=== PATIENT | male | born 1955 | race Caucasian/White ===

== ENCOUNTER 2024-03-09 10:11 | Outpatient (CLI) | payer MEDICARE, BC, SELFPAY ==
--- OUTSIDE RECORDS SUMMARY | 2024-03-09 10:15 | XMS_ITS | Referral Summary ---
Author Organization [facility] Address [address] [place] [address] Care Team Providers Care Pelletizer Tender Name Role Phone Guillermo Marcelo M.D. Primary Care Provider [phone] Source Comments Patient records contain information from all sites at [facility]. For routine questions regarding patient records, call [phone] during business hours, M-F 8:00 AM - 5:00 PM Central Time. Record requests for emergency care only can be directed to [phone] at any time.[facility] Encounters Date Type Department Care Team Description 02/17/2024 Orders Only Department of Ophthalmology in [place], [place] [address] [place] [address] Sirena Lr, C.O.A. 02/17/2024 12:30 PM CDT Office Visit Department of Ophthalmology in [place], [place] [address] [place] [address] Meghna Nascimento M.D. Uveitis Anterior Recurrent Left (Primary Dx); Steroid Responder Left Eye; Cataract Senile Nuclear Sclerosis Bilateral; Spondyloarthropathy Human Leukocyte Antigens B27; Cancer Renal Cell Carcinoma Personal History 12/23/2023 10:14 AM CDT - 12/23/2023 11:59 PM CDT Hospital Encounter Department of Laboratory Medicine in [place], [place] [address] [place] [address] Guillermo Marcelo M.D. Hyperlipidemia Discharge Disposition: Home or Self Care from Last 3 Months Allergies No known active allergies Medications * This document contains information received from the source organization and may not represent a complete record from that organization. atorvastatin (LIPITOR) 10 mg tablet Take 1 tablet (10 mg total) by mouth daily. 90 tablet 3 02/25/2023 Active mv-min/folic/K1/ lycopen/lutein (CENTRUM SILVER ULTRA MEN'S ORAL) Take 1 tablet by mouth daily. 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 Repeat colonoscopy in 5 years. Hyperlipidemia 06/23/2008 Immunizations Name Administration Dates Next Due HZV (ZOSTAVAX) 08/22/2013 Influenza Split 02/23/2017, 6,03/01/2013,2011 Influenza high dose QV(65 ye ars or older) (PF) 03/24/2022,02/26/2021,02/06/2020 Influenza, Seasonal, Injectable 05/25/2006 Influenza, Unspecified 09/02/2023(Deferred: Casandra ent decision) PCV20 03/24/2022 PPSV23 02/06/2020,07/04/2011 RZV (SHINGRIX) 02/14/2019,02/10/2019,12/01/2018 SARS-COV-2 (COVID-19) - MODE RNA (12 YEARS AND OLDER) Fall Seasonal 09/02/2023(Deferred: Patient decision) SARS-COV-2 (COVID-19) - PFIZ ER (Discontinued)(12 years or older) 08/14/2020,07/24/2020 Td Preservative Free (TENIVA C, DECAVAC) 10/24/2004 Td, (Adult) Unspecified 12/18/1988 Tdap 12/15/2022,07/21/2011 influenza trivalent high dos e (HD)(PF) 02/16/2019,02/23/2017 influenza trivalent vaccine (6 months and older)(PF) 07/04/2011,05/17/2009 Social History Tobacco Use Types Packs/Day Years Used Date Smoking Tobacco: Former Cigarettes 0.5 54.8 S tarted: 05/18/1969 Cigars Started: 05/18 Smokeless Tobacco: Never Tobacco Cessation:Counseling Given: Yes Comments:08/31/23 Alcohol Use Standard Drinks/Week Comments Yes 3 (1 standard drink = 0.6 oz pur e alcohol) Only rarely Humiliation, Afraid, Rape, and Kick questionnair e Answer Date Recorded Within the last year, have y ou been afraid of your partner or ex-partner? No 12/08/2022 Within the last year, have y ou been humiliated or emotionally abused in other ways by your partner or ex-partner? No Within the last year, have y ou been kicked, hit, slapped, or otherwise physically hurt by your partner or ex-partner? No 12/08/2022 Within the last year, have y ou been raped or forced to have any kind of sexual activity by your partner or ex-partner? No 12/08/2022 Social Connection and Isolat ion Panel [NHANES] Answer Date Recorded In a typical week, how many times do you talk on the phone with family, friends, or neighbors? Twice a week 09/19/2021 How often do you get togethe r with friends or relatives? More than three times a week 09/19/2021 How often do you attend chur ch or temple services? More than 4 times per year 09/19/2021 Do you belong to any clubs o r organizations such as restorationist groups, unions, fraternal or athletic groups, or school groups? Yes 09/19/2021 How often do you attend meet ings of the clubs or organizations you belong to? More than 4 times per year 09/19/2021 Are you , , di vorced, , never , or living with a partner? 09/19/2021 AUDIT-C Answer Date Recorded Q1: How often do you have a drink containing alc ohol? 2-4 times a month 09/19/2021 Q2: How many drinks containi ng alcohol do you have on a typical day when you are drinking? 1 or 2 09/19/2021 Q3: How often do you have si x or more drinks on one occasion? Less than monthly 09/19/2021 Overall Financial Resource Strain (CARDIA) Answe r Date Recorded How hard is it for you to pa y for the very basics like food, housing, medical care, and heating? Not hard at all 12/08/2022 PHQ-2 Answer Date Recorded PHQ-2 Score 0 08/31/2023 [facility] - Occupational Stress Questionnaire Answer Date Recorded Do you feel stress - tense, restless, nervous, or anxious, or unable to sleep at night because your mind is troubled all the time - these days? Only a little 09/19/2021 Exercise Vital Sign Answer Date Recorde d On average, how many days pe r week do you engage in moderate to strenuous exercise (like a brisk walk)? 4 days 12/08/2022 On average, how many minutes do you engage in exercise at this level? 110 min 12/08/2022 Hunger Vital Sign Answer Date Recorded Within the past 12 months, y ou worried that your food would run out before you got the money to buy more. Never true 12/09/19 23 Within the past 12 months, t he food you bought just didn't last and you didn't have money to get more. Never true 12/08/2022 PRAPARE - Transportation Answer Date Re corded In the past 12 months, has l ack of transportation kept you from medical appointments or from getting medications? No 11/16 In the past 12 months, has l ack of transportation kept you from meetings, work, or from getting things needed for daily living? No 12/08/2022 Nutrition Answer Date Recorded On average, how many serving s of fruits and vegetables do you eat per day (serving size is equal to 1 cup or approximately the size of a tennis ball)? 0-2 12/08/2022 Dental Answer Date Recorded Dental: Regular Dentist Yes 09/20/19 Employment Answer Date Recorded Employment status Retired 12/08/2022 Housing Stability Answer Date Recorded What is your living situation today? I have a [facility] place to live 12/08/2022 Education Answer Date Recorded What is the highest level of school you have completed or the highest degree you have received? 12th grade 09/19/2021 Sex and Gender Information Value Date Recorded Sex Assigned at Male 10/15/2017 7:21 PM CDT Legal Sex Male 2:00 AM [employer] Gender Identity Male 10/15/2017 7:21 PM CDT Sexual Orientation Straight 10/15/2017 7: 21 PM CDT Last Filed Vital Signs Vital Sign Reading Time Taken Comments Blood Pressure 149/76 11/18/2023 7:41 AM CDT Pulse 64 11/18/2023 7:41 AM CDT Temperature 36.1 ??C (97 ??F) 11/18/2023 7:41 AM CDT Respiratory Rate 20 10/26/2023 1:12 PM CDT Oxygen Saturation 99% 09/13/2023 10: 57 AM CDT Inhaled Oxygen Concentration - - Weight 88.3 kg (194 lb 10.7 oz) 11/18/2023 7:41 AM CDT Height 189.9 cm (6' 2.76) 11/18/2023 7:41 AM CD T Body Mass Index 24.49 11/18/2023 7:41 AM CDT Plan of Treatment Upcoming Encounters Date Type Department Care Team (Latest Contact Info) Description 05/04/2024 10:00 AM [employer] Comprehensive Visit Department of Sleep Medicine in [place], [place] [address] [place] [phone] Leighton Schmitz M.D. [address] [place] [phone] Discharge Disposition: Home or Self Care Medical Devices Implanted Type Area Vocational Aide Device Identifier Shelf Expiration Date Model / Serial / Lot [place] Screw 2 Canc 6.5 X 20 - Robert [id number] Implanted:Qty: 1 on 05/22/2006 Hardware e.g. pins/screws /rods [employer] Description:Device Manufactu rer - [employer]. Device Status Text - [id number]. [place] Screw 2 Canc 6.5 X 40 - Robert [id number] Implanted:Qty: 1 on 05/22/2006 Hardware e.g. pins/screws /rods [employer] Description:Device Manufactu rer - [employer]. Device Status Text - [id number]-[id number]. [place] Screw 2 Canc 6.5 X 35 - Robert [id number] Implanted:Qty: 1 on 05/14/2009 Hardware e.g. pins/screws /rods [employer] Description:Device Manufactu rer - [employer]. Device Status Text - HARDWARE-96071. [place] Screw 2 Canc 6.5 X 20 - Robert [id number] Implanted:Qty: 1 on 05/14/2009 Hardware e.g. pins/screws /rods [employer] Description:Device Manufactu rer - [employer]. Device Status Text - HARDWARE-05504. J J Insert P Fatou +4 10 36x58 - Robert [id number] Implanted:Qty: 1 on 05/22/2006 Hip Implant Other/Legacy - See Implant Description [employer] Description:Device Manufactu rer - [employer]. Body Location - Other. Left. Device Status Text - HIP [id number]. [place] Shell Multi 2 58mm - Robert [id number] Implanted:Qty: 1 on 05/22/2006 Hip Implant Other/Legacy - See Implant Description [employer] Description:Device Manufactu rer - [employer]. Body Location - Other. Left. Device Status Text - HIP [id number]. J J Articul Travis Head 36 + 5.0 - Robert [id number] Implanted:Qty: 1 on 05/22/2006 Hip Implant Other/Legacy - See Implant Description [employer] Description:Device Manufactu rer - [employer]. Body Location - Other. Left. Device Status Text - HIP [id number]. Depuy Aml High Offset Lg 15.0 - Robert [id number] Implanted:Qty: 1 on 05/22/2006 Hip Implant Other/Legacy - See Implant Description [employer] Description:Device Manufactu rer - [employer]. Body Location - Other. Left. Device Status Text - HIP [id number]. Delta-Head Ceramic 36mm +1.5 - Robert [id number] Implanted:Qty: 1 on 05/14/2009 Hip Implant Other/Legacy - See Implant Description [employer] Description:Device Manufactu rer - [employer]. Body Location - Other. Right. Device Status Text - HIP IMP-[id number]. J J Insert P Fatou +4 10 36x58 - Robert [id number] Implanted:Qty: 1 on 05/14/2009 Hip Implant Other/Legacy - See Implant Description [employer] Description:Device Manufactu rer - [employer]. Body Location - Other. Right. Device Status Text - HIP IMP-[id number]. [place] Shell Multi 2 58mm - Robert [id number] Implanted:Qty: 1 on 05/14/2009 Hip Implant Other/Legacy - See Implant Description [employer] Description:Device Manufactu rer - [employer]. Body Location - Other. Right. Device Status Text - HIP [id number]. Depuy Aml High Offset Lg 15.0 - Robert [id number] Implanted:Qty: 1 on 05/14/2009 Hip Implant Other/Legacy - See Implant Description [employer] Description:Device Manufactu rer - [employer]. Body Location - Other. Right. Device Status Text - HIP [id number]. Depuy-Insert Stabilized Sz 5 10mm - Robert [id number] Implanted:Qty: 1 on 07/08/2011 Knee Implant Other/Legacy - See Implant Description [employer] Description:Device Manufactu rer - [employer]. Body Location - Other. Right. Device Status Text - KNEE IMP-101807. Depuy-Insert Stabilized Sz 5 10mm - Robert [id number] Implanted:Qty: 1 on 07/08/2011 Knee Implant Other/Legacy - See Implant Description [employer] Description:Device Manufactu rer - [employer]. Body Location - Other. Left. Device Status Text - KNEE IMP-216705. J J Sig Patella Oval 38 - Robert [id number] Implanted:Qty: 1 on 07/08/2011 Knee Implant Other/Legacy - See Implant Description [employer] Description:Device Manufactu rer - [employer]. Body Location - Other. Right. Device Status Text - KNEE IMP-513755. J J Sig Patella Oval 38 - Robert [id number] Implanted:Qty: 1 on 07/08/2011 Knee Implant Other/Legacy - See Implant Description [employer] Description:Device Manufactu rer - [employer]. Body Location - Other. Left. Device Status Text - KNEE IMP-416478. Sigma Post Stab.W Lug Fem Sz 6 Lt - Robert [id number] Implanted:Qty: 1 on 07/08/2011 Knee Implant Other/Legacy - See Implant Description [employer] Description:Device Manufactu rer - [employer]. Body Location - Other. Left. Device Status Text - KNEE IMP-153998. Depuy-Tib Tray Mod Cement Cocr Sz5 - Robert [id number] Implanted:Qty: 1 on 07/08/2011 Knee Implant Other/Legacy - See Implant Description [employer] Description:Device Manufactu rer - [employer]. Body Location - Other. Right. Device Status Text - KNEE [id number]. Depuy-Tib Tray Mod Cement Cocr Sz5 - Robert [id number] Implanted:Qty: 1 on 07/08/2011 Knee Implant Other/Legacy - See Implant Description [employer] Description:Device Manufactu rer - [employer]. Body Location - Other. Left. Device Status Text - KNEE IMP-038842. Sigma Post Stab.W Lug Fem Sz 6 Rt - Robert [id number] Implanted:Qty: 1 on 07/08/2011 Knee Implant Other/Legacy - See Implant Description [employer] Description:Device Manufactu rer - [employer]. Body Location - Other. Right. Device Status Text - KNEE IMP-466689. Cement Bone Large - Robert [id number] Implanted:Qty: 4 on 07/08/2011 Misc Other [place] Description:Device Manufactu rer - Anshul Valencia.. Device Status Text - MISCOTHER-2840. Procedures Procedure Name Priority Date/Time Associated Diagnosis Comments LIPID PANEL, S Routine 12/23/2023 10:26 AM CDT Hyperlipidemia BASIC METABOLIC PANEL, S/P Routine 10/26/2023 2:00 PM CDT Cancer Renal Cell Carcinoma Personal History COLONOSCOPY Routine 09/28/2019 1:07 PM CDT Tubular Adenoma Colon Personal History HCV AB SCRN W/REFLEX TO HCV PCR, S Routine 06/12/2017 11:35 AM [employer] CT ABDOMEN PELVIS WITH IV CONTRAST Routine 04/10/2000 4:00 AM [employer] from Last 3 Months or Most Recently Relevant to Health Maintenance Results * Lipid Panel (12/23/2023 10:26 AM CDT) Triglycerides 81 mg/dL 12/23/2023 12:06 PM CDT NPRG Comment: ----REFERENCE VALUE---- Normal: <150 mg/dL Borderline High: 150-199 mg/dL High: 200-499 mg/dL Very High: > or =500 mg/dL Cholesterol, Total 162 mg/dL 2023 12:06 PM CDT NPRG Comment: ----REFERENCE VALUE---- Desirable: < 200 mg/dL Borderline High: 200 - 239 mg/dL High: > or = 240 mg/dL Cholesterol, LDL, Calculated 102 mg/dL 12/23/2023 12:06 PM CDT NPRG Comment: ----REFERENCE VALUE---- Desirable: <100 mg/dL Above Desirable: 100-129 mg/dL Borderline High: 130-159 mg/dL High: 160-189 mg/dL Very High: >=190 mg/dL ----ADDITIONAL INFORMATION---- LDL cholesterol calculated using the Smith/NIH equation. Cholesterol, HDL 45 >=40 mg/dL 12/23/19 12:06 PM CDT NPRG Cholesterol, Non-HDL, Calculated 117 mg/dL 12/23/2023 12:06 PM CDT NPRG Comment: ----REFERENCE VALUE---- Desirable: <130 mg/dL Above Desirable: 130-159 mg/dL Borderline High: 160-189 mg/dL High: 190-219 mg/dL Very High: > or =220 mg/dL Fasting (8 HR or more) Yes 12/23/2023 10:26 AM CDT NPRG Blood (Blood, Venous) 12/23/2023 10:26 AM CDT 12/23/2023 11:46 AM CDT us Guillermo Marcelo M.D. LAB BLOOD ADD-ON Final Result [facility] [address] [place] [address], [place] NPRG [facility] [address] [place] [facility] [place] [address] * (ABNORMAL) Basic Metabolic Panel (10/26/2023 2:00 PM CDT) [facility] Potassium, P 5.1 3.6 - 5.2 mmol/L 10/26/2023 4:07 PM CDT NPRG Sodium, P 140 135 - 145 mmol/L 10/26/2023 4:07 PM CDT NPRG Chloride, P 104 98 - 107 mmol/L 10/26/2023 4:07 PM CDT NPRG Bicarbonate, P 30(H) 22 - 29 mmol/L 10/26/2023 4:07 PM CDT NPRG Anion Gap, P 6(L) 7 - 15 10/26/2023 4:07 PM CDT NPRG BUN (Blood Urea Nitrogen), P 26(H) 8 - 24 mg/dL 10/26/2023 4:07 PM CDT NPRG Creatinine 1.70(H) 0.74 - 1.35 mg/dL 10/26/2023 4:07 PM CDT NPRG Estimated GFR (eGFR) 43(L) >=60 mL/min/BSA 10/26/2023 4:07 PM CDT NPRG Comment: Estimated GFR calculated using the 2020 CKD_EPI creatinine equation. Calcium, Total, P 8.8 8.8 - 10.2 mg/dL 10/26/2023 4:07 PM CDT NPRG Glucose, P 83 70 - 140 mg/dL 10/26/2023 4:07 PM CDT NPRG Blood (Blood, Venous) 10/26/2023 2:00 PM CDT 10/26/2023 3:35 PM CDT us Leif Bonner M.D. LAB BLOOD ADD-ON Final Result [facility] [address] [place] [address], [facility] NPRG [facility] [address] [place] [address] * HCV AB Scrn w/Reflex to HCV PCR, S (06/12/2017 11:35 AM [employer]) HCV Ab Screen, S Negative Negative [facility] Comment:[id number] rat io is <1.00. 06/12/2017 11:3 5 AM [employer] 06/12/2017 11:35 AM [employer] Noah Adan M.D. LAB MICROBIOLOGY - BLOOD ORDERABLES Final Result [facility] [address] [place] [address], [facility] * CT Abdomen Pelvis with IV Contrast (04/10/2000 4:00 AM [employer]) Anatomical Region Laterality Modality Abdomen, Pelvis N/A Computed Tomogra phy 04/10/2000 4:00 AM [employer] Narrative 04/10/2000 7:16 AM [employer] 10-Apr-2000 04:00:00 ??Exam: CT ABDOMEN w & PELVIS w Indications: abdo pain, mid epigastrium ORIGINAL REPORT - 10-Apr-2000 05:19:00 ([id number]) CT abdomen and pelvis with oral and IV contrast enhancement demonstrates multiple mildly dilated fluid filled loops of mid and distal small bowel in the left abdomen and pelvis, measuring up to 5 cm in diameter. ??The colon is relatively decompressed. ??No intraperitoneal free air demonstrated. ??No obstructing mass or transition zone is demonstrated. ??Findings are nonspecific, but early or partial mechanical SBO cannot be excluded. ??Follow-up radiographs may be helpful if clinically indicated. ??Small amount of free fluid in the pelvis. ??Tiny hypodense liver foci (image 12) is most likely an unopacified vessel or benign simple cyst. ??Otherwise negative. ??Findings discussed with service. ?? (Optiray 320, 120 cc's, debility) Electronically signed by: ?? Lynn [id number] ([id number]) 10-Apr-2000 05:19 I have reviewed the films/images and agree with the above interpretation. Electronically signed by: ?? Richi Dyer M.D. ?? [id number] 10-Apr-2000 07:16 Procedure Note Jagdish Dyer M.D. - 08/24/2017 10-Apr-2000 04:00:00 Exam: CT ABDOMEN w & PELVIS w Indications: abdo pain, mid epigastrium ORIGINAL REPORT - 10-Apr-2000 05:19:00 ([id number]) CT abdomen and pelvis with oral and IV contrast enhancementdemonstrates multiple mildly dilated fluid filled loops of mid and distalsmall bowel in the left abdomen and pelvis, measuring up to 5 cm indiameter. The colon is relatively decompressed. No intraperitoneal freeair demonstrated. No obstructing mass or transition zone is demonstrated.Findings are nonspecific, but early or partial mechanical SBO cannot beexcluded. Follow-up radiographs may be helpful if clinically indicated.Small amount of free fluid in the pelvis. Tiny hypodense liver foci(image 12) is most likely an unopacified vessel or benign simple cyst.Otherwise negative. Findings discussed with service. (Optiray 320, 120 cc's, debility) Electronically signed by: Lynn [id number] ([id number]) 10-Apr-2000 05:19 I have reviewed the films/images and agree with the above interpretation. Electronically signed by: Richi Dyer M.D. [id number] 10-Apr-2000 07:16 Albert Vanessa M.D. IMG CT PROCEDURES Final Result from Last 3 Months or Most Recently Relevant to Health Maintenance Insurance MEDICARE [facility] Care Teams Pelletizer Tender Relationship Specialty Start Date End Date Guillermo Marcelo M.D. [address] [place], [place] [address] [place] [id number] PCP - General Family Medicine 07/30/23 [facility] 09/02/23
--- OUTSIDE RECORDS SUMMARY | 2024-03-09 10:15 | XMS_ITS | Encounter Summary ---
Author Organization [facility] Address [address] [place] [address] Care Team Providers Care Marker Hand Name Role Phone Guillermo Marcelo M.D. Primary Care Provider [phone] Reason for Referral * Outpatient (Routine) - Authorized Specialty Diagnoses / Procedures Referred By Gaby lagunas Referred To Contact Ophthalmology Meghna Nascimento M.D. [address] [place] [address] Phone: tel: fax: [facility] Referral ID Status Reason Start Date Expiration Date V isits Requested Visits Authorized [id number] Authorized 02/17/2024 08/18/2025 1 1 Scheduling Instructions Late July/early August 2024: Thursday at 12:30 pm Reason for Visit * Reason Comments Follow-up * Outpatient (Routine) - Closed Specialty Diagnoses / Procedures Referred By Gaby lagunas Referred To Contact Ophthalmology Meghna Nascimento M.D. [address] [place] [address] Phone: tel: fax: [facility] Referral ID Status Reason Start Date Expiration Date Visits Re quested Visits Authorized [id number] Closed 11/18/2023 05/19/2025 1 1 Encounter Details Date Type Department Care Team (Latest Contact Info) Description 02/17/2024 12:30 PM CDT Office Visit Department of Ophthalmology in [place], [place] [address] [place] [address] Meghna Nascimento M.D. [address] [place] [address] Uveitis Anterior Recurrent Left (Primary Dx); Steroid Responder Left Eye; Cataract Senile Nuclear Sclerosis Bilateral; Spondyloarthropathy Human Leukocyte Antigens B27; Cancer Renal Cell Carcinoma Personal History Social History Tobacco Use Types Packs/Day Years Used Date Smoking Tobacco: Former Cigarettes 0.5 54.8 S tarted: 05/18/1969 Cigars Started: 05/18 Smokeless Tobacco: Never Comments:08/31/23 Alcohol Use Standard Drinks/Week Comments Yes [...] often do you attend chur ch or yazidi services? More than 4 times per year 09/19/2021 Do you belong to any clubs o r organizations such as gnosticism groups, unions, fraternal or athletic groups, or [...] Answer Date Recorded PHQ-2 Score 0 08/31/2023 [facility] - Occupational Stress Questionnaire Answer Date [...] your living situation today? I have a [facility] place to live 12/08/2022 Education Answer Date Recorded What is the highest level of school you have completed or the highest degree you have received? 12th grade 09/19/2021 Sex and Gender Information Value Date Recorded Sex Assigned at Male 10/15/2017 7:21 PM CDT Legal Sex Male 2:00 AM ELECTRIC SPOT WELDER Gender Identity Male 10/15/2017 7:21 PM CDT Sexual Orientation Straight 10/15/2017 7: 21 PM CDT documented as of this encounter Progress Notes * Meghna Nascimento M.D. - 02/17/2024 12:30 PM CDT IMPRESSION # History of acute anterior uveitis, left eye - HLA-B27 associated --01/2016 first episode in the left eye: high grade anterior chamber cell (2-3+ with fibrin, posterior synechiae) - treated with prednisolone drops, tapered slowly, stopping in early April 2016. Did not have steroid-induced ocular hypertension. --07/2016 2nd episode, left eye: 1+ anterior chamber cell. Treated with prednisolone drops initially, then switched to difluprednate, IOP elevated to 32 on difluprednate. Controlled with Cosopt and brimonidine. Switched to prednisolone drops, stopped in mid-January 2017. --09/2017 3rd episode. 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 (07/2016) on difluprednate eye drops # Posterior vitreous detachment, both eyes # Clear cell renal cell carcinoma pT3 (2023) Status post right radical nephrectomy (10/09/23) # History of ankylosing spondylitis, HLA-B27 positive per report (Diagnosed when he was in his 20s) --when evaluated in 2015, he had fused sacroiliac joints and was treated with primarily with NSAIDs --history of bilateral hip replacements (left 2006, right 2008) --history of bilateral total knee arthroplasty (2011) # History of IgA nephropathy --diagnosed when he had gross hematuria # History of small bowel obstruction (03/2000) --required exploratory laparotomy and lysis of adhesions HPI - 11/18/23 Mr. Fredo Mcdonald is a 68 year old man who is referred by Dr. Earnestine Becker for evaluation due to a history of uveitis. He has a history of a clear cell renal cell carcinoma in his right kidney. A one year course of adjuvant immunotherapy with pembrolizumab (Keytruda) was recommended by his oncologist Dr. Becker. Due to his previous history of uveitis, an ophthalmology evaluation was recommended prior to starting immunotherapy. He was evaluated by Dr. Farzad Buenrostro in rheumatology earlier today. Dr. Buenrostro said it is possible thatthe immunotherapy could trigger reactivation of ankylosing spondylitis, but the likelihood of significant morbidity is low. He recommended reassessment of rheumatologic disease activity in about a year. He has not had any episodes of uveitis since the last one diagnosed here in September 2017. He has remained off prednisolone eye drops since the end of November 2017. His symptoms of iritis were a very red eye with a little itchiness, but no pain or light sensitivity. RECOMMENDATIONS There are no signs of active or recently active uveitis on exam today. He did have elevated eye pressure (up to 32) when he was on difluprednate eye drops, but his eye pressures are within normal limits in each eye now (without the need for glaucoma drops), and there isno evidence of glaucomatous optic neuropathy. He has some cataract in each eye, but neither is visually significant. He never had uveitic macular edema. In summary, it has been six years since his last episode of anterior uveitis. The previous episodesof uveitis did not cause any significant damage to ocular structures or vision. There is no contraindication to taking pembrolizumab. TODAY - 02/17/24 Since last visit he started adjuvant therapy with pembrolizumab on 12/09/23. He receives treatment every 3 weeks. The plan is to continue this treatment for one year. He had to miss one infusion because blood work was abnormal, but then it was okay. The most recent follow up note from his oncologist is dated 01/28/24. His next infusion is tomorrow (02/18/24). No changes in vision, no new eye-related symptoms. PLAN - 02/17/24 No active uveitis on exam today. No other findings concerning for ICI-related ocular toxicity. Okay to continue pembrolizumab as planned. In general, the rate of uveitis associated with pembrolizumab is very low. (Around 1% annual incidence for patients with melanoma; far less than 1% incidence in non-melanoma cases.) The risk of developing uveitis due to pembrolizumab is higher in patients with a history of uveitis, but it is still a very low risk. If he does develop uveitis, he might be able to continue pembrolizumab once the uveitis is controlled. Sometimes it may be necessary to postpone pembrolizumab for a period of time, and/or reduce the dose. Even if he develops uveitis on pembrolizumab, it is likely that we could be able to treat and control the uveitis without developing irreversible damage to the eye(s) and vision. Since he does have age-related cataract in each eye, the most likely complication of developing uveitis would be cataract progression (from inflammation and corticosteroids). As long as the uveitis is controlled, cataracts can be surgically removed with subsequent improvement in vision. If he is on pembrolizumab and he develops symptoms similar to the ones he had when he had anterior uveitis (eye redness & itching), or he develops other eye- or vision-related symptoms (ie eye pain, more than 10 floaters that are persistent or increasing, cloudy vision, vision loss), he should call Dr. Nascimento's church secretary: [phone] Nascimento is not available, he should be seen by one of the retina fellows, the resident on the retina or uveitis service, or one of the residents in the comprehensive ophthalmology clinic. If he has severe symptoms on the weekend and he thinks he cannot wait until the next business day, he should call the [facility] dx board operator at [phone] and ask for the eye doctor knitting demonstrator. Otherwise, we will reassess in about six months (late July or early August 2024 - schedule on a Thursday at 12:30 pm: [facility], trop both eyes, [facility]) Summary to Dr. Earnestine Becker ([facility]) documented in this encounter Plan of Treatment Upcoming Encounters Date Type Department Care Team (Latest Contact Info) Description 05/04/2024 10:00 AM ELECTRIC SPOT WELDER Comprehensive Visit Department of Sleep Medicine in [place], [place] [address] [place] [address] Leighton Schmitz M.D. 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 [address] [place] [address] PCP - General Family Medicine 07/30/23 [facility] 09/02/23 documented as of this encounter
--- OUTSIDE RECORDS SUMMARY | 2024-03-09 10:15 | XMS_ITS ---
Author Organization [facility] Address [address] [place] [address] Care Team Providers Care Dining Car Server Name Role Phone Unavailable Unavailable Unavailable Surgery Details Not on file Complications Check Surgery Details section. Procedure Estimated Blood Loss Check Surgery Details section. Procedure Findings Check Surgery Details section. Procedure Specimens Taken Check Surgery Details section.
--- OUTSIDE RECORDS SUMMARY | 2024-03-09 10:15 | XMS_ITS | Clinical Summary ---
Author Organization [facility] Address [address] [place] [address] Care Team Providers Care Television Mechanic Name Role Phone Guillermo Marcelo M.D. Primary Care Provider [phone] Source Comments Patient records contain information from all sites at [facility]. For routine questions regarding patient records, call [phone] during business hours, M-F 8:00 AM - 5:00 PM Central Time. Record requests for emergency care only can be directed to [phone] at any time.[facility] Allergies No known active allergies Medications * [...] B27 11/18/2023 Cataract Senile Nuclear Sclerosis Bilateral 07/0 07/2023 Steroid Responder Left Eye 11/18/2023 Cancer Renal Cell Carcinoma Personal History 02/2024 Thrombocytopenia 10/26/2023 Peyronie's Disease 09/19/2021 Apnea Sleep Obstructive 09/19/2021 Tobacco Use 09/19/2021 Spondylitis Ankylosing 02/07/2016 Polyp Colon Personal History, Unspecified Type 0 08/29/2013 Overview (09/29/2019): Colonoscopy September 2019: Tubular adenoma with low-grade dysplasia. Repeat colonoscopy in 5 years. Hyperlipidemia 06/23/2008 Encounters Date Type Department Care Team Description 02/17/2024 12:30 PM CDT Office Visit Department of Ophthalmology in [place], [place] [address] [place] [address] Meghna Nascimento M.D. Uveitis Anterior Recurrent Left (Primary Dx); Steroid Responder Left Eye; Cataract Senile Nuclear Sclerosis Bilateral; Spondyloarthropathy Human Leukocyte Antigens B27; Cancer Renal Cell Carcinoma Personal History 02/17/2024 Orders Only Department of Ophthalmology in [place], [place] [address] [place] [address] Sirena Lr, C.O.A. 12/23/2023 10:14 AM CDT - 12/23/2023 11:59 PM CDT Hospital Encounter Department of Laboratory Medicine in [place], [place] [address] [place] [address] Guillermo Marcelo M.D. Hyperlipidemia Discharge Disposition: Home or Self Care from Last 3 Months Immunizations Name Administration Dates Next Due HZV [...] trivalent vaccine (6 months and older)(PF) 07/04/2011,05/17/2009 Family History Medical History Relation Name Comments Cancer Brother Leighton doing experimen issa meds, slow growing, rare Skin cancer Brother Leighton No Known Problems Daughter Rossy Colon cancer Father Merle Coronary artery disease Father Merle Heart attack Father Merle Kidney cancer Father Merle Asthma Mother Janie Coronary artery disease Mother Janie Dementia Mother Janie Glaucoma Mother Janie Stroke Mother Janie Transient ischemic attack Mother Janie Suicide Paternal Grandfather Alex Skin cancer Sister 1 Adri Skin cancer Sister 2 Kami Skin cancer Sister 3 Aicha Relation Name Status Comments Brother Leighton Alive Daughter Rossy Alive Father Merle Mother Janie Paternal Grandfather Alex Sister 1 Adri Alive Sister 2 Kami Alive Sister 3 Aicha Alive Social History Tobacco Use Types Packs/Day Years [...] 09/19/2021 How often do you attend chur or islam services? More than 4 times per year 09/19/2021 Do you belong to any clubs o r organizations such as jehovah's witness groups, unions, fraternal or athletic groups, or [...] Answer Date Recorded PHQ-2 Score 0 08/31/2023 [facility] - Occupational Stress Questionnaire Answer Date Recorded [...] your living situation today? I have a [facility] place to live 12/08/2022 Education Answer Date Recorded What is the highest level of school you have completed or the highest degree you have received? 12th grade 09/19/2021 Sex and Gender Information Value Date Recorded Sex Assigned at Male 10/15/2017 7:21 PM CDT Legal Sex Male 2:00 AM CERTIFIED NURSING ATTENDANT Gender Identity Male 10/15/2017 7:21 PM CDT [...] (Latest Contact Info) Description 05/04/2024 10:00 AM CERTIFIED NURSING ATTENDANT Comprehensive Visit Department of Sleep Medicine in [place], [place] [address] [place] [phone] Leighton Schmitz M.D. [address] [place] [phone] Discharge Disposition: Home or Self Care Health Maintenance Due Date Last Done Comments CT Colonography 1955 Cologuard 1955 COVID-19 Vaccine (4 - 2023-2 5 season) 2024 04/19/2021, 08/14/2020, 07/24/2020 Influenza Vaccine (#1) 2024 , 02/26/2021, 02/06/2020, Additional history exists Visit: Medicare Annual Wellness 09/02/2024 Visit: Annual, age 65+ (or Medicare and <65) 10/25/2024 10/26/2023 Lipid (Cholesterol) Screening 12/22/2024, 12/15/2022, 09/27/2021, Additional history exists Colonoscopy 05/17/2025 05/17/2020, 09/15, 09/28/2019, Additional history exists Colorectal Cancer Surveillance 05/17/2025 Fasting Glucose for Diabetes Screening 10/25/2026 10/26/2023, 10/23/2023, 10/13/2023, Additional history exists DTaP,Tdap,and Td Vaccines (3 - Td or Tdap) 12/15/2032 12/15/2022, 07/21/2011, 10/24/2004, Additional history exists Hepatitis C Screening Completed 06/12/2017 Zoster Vaccines Completed 02/14/2019, 01/17, 12/01/2018, Additional history exists Pneumococcal vaccine (65+ years) Completed 03/24/2022, 02/06/2020, 07/04/2011 Fall Risk Screen (Annual) Completed 08/31/2023 Depression Screening (Annual PHQ-2) Completed 09/02/2023, 08/31/2023 Lung Cancer Screening Discontinued 10/02/2023 Abdominal Aortic Aneurysm (A AA) Screen Completed 10/13/2023, 10/13/2023, 09/16/2023, Additional history exists Medical Devices Implanted Type Area Car Blocker Device Identifier Shelf Expiration Date Model / Serial / Lot Dale Screw 2 Canc 6.5 X 20 - Robert [id number] Implanted:Qty: 1 on 05/22/2006 Hardware e.g. pins/screws /rods [employer] Description:Device Manufactu rer - [employer]. Device Status Text - [id number]. Dale Screw 2 Canc 6.5 X 40 - Robert [id number] Implanted:Qty: 1 on 05/22/2006 Hardware e.g. pins/screws /rods [employer] Description:Device Manufactu rer - [employer]. Device Status Text - [id number]. Dale Screw 2 Canc 6.5 X 35 - Robert [id number] Implanted:Qty: 1 on 05/14/2009 Hardware e.g. pins/screws /rods [employer] Description:Device Manufactu rer - [employer]. Device Status Text - [id number]. Dale Screw 2 Canc 6.5 X 20 - Robert [id number] Implanted:Qty: 1 on 05/14/2009 Hardware e.g. pins/screws /rods [employer] Description:Device Manufactu rer - [employer]. Device Status Text - [id number]. J J Insert P Fatou +4 10 36x58 - Robert [id number] Implanted:Qty: 1 on 05/22/2006 Hip Implant Other/Legacy - See Implant Description [employer] Description:Device Manufactu rer - [employer]. Body Location - Other. Left. Device Status Text - HIP [id number]. Dale Shell Multi 2 58mm - Robert [id number] Implanted:Qty: 1 on 05/22/2006 Hip Implant Other/Legacy - See Implant Description [employer] Description:Device Manufactu rer - [employer]. Body Location - Other. Left. Device Status Text - [id number] [id number]. J J Articul Travis Head 36 + 5.0 - Robert [id number] Implanted:Qty: 1 on 05/22/2006 Hip Implant Other/Legacy - See Implant Description [employer] Description:Device Manufactu rer - [employer]. Body Location - Other. Left. Device Status Text - HIP [id number]. Depuy Aml High Offset Lg 15.0 - Robert [id number] Implanted:Qty: 1 on 05/22/2006 Hip Implant Other/Legacy - See Implant Description [employer] Description:Device Manufactu rer - [employer]. Body Location - Other. Left. Device Status Text - [id number] [id number]. Delta-Head Ceramic 36mm +1.5 - Robert [id number] Implanted:Qty: 1 on 05/14/2009 Hip Implant Other/Legacy - See Implant Description [employer] Description:Device Manufactu rer - [employer]. Body Location - Other. Right. Device Status Text - HIP [id number]. J J Insert P Fatou +4 10 36x58 - Robert [id number] Implanted:Qty: 1 on 05/14/2009 Hip Implant Other/Legacy - See Implant Description [employer] Description:Device Manufactu rer - [employer]. Body Location - Other. Right. Device Status Text - HIP [id number]. Dale Shell Multi 2 58mm - Robert [id number] Implanted:Qty: 1 on 05/14/2009 Hip Implant Other/Legacy - See Implant Description [employer] Description:Device Manufactu rer - [employer]. Body Location - Other. Right. Device Status Text - HIP [id number]. Depuy Aml High Offset Lg 15.0 - Robert [id number] Implanted:Qty: 1 on 05/14/2009 Hip Implant Other/Legacy - See Implant Description [employer] Description:Device Manufactu rer - [employer]. Body Location - Other. Right. Device Status Text - HIP [id number]. Depuy-Insert Stabilized Sz 5 10mm - Robert [id number] Implanted:Qty: 1 on 07/08/2011 Knee Implant Other/Legacy - See Implant Description [employer] Description:Device Manufactu rer - [employer]. Body Location - Other. Right. Device Status Text - KNEE [id number]. Depuy-Insert Stabilized Sz 5 10mm - Robert [id number] Implanted:Qty: 1 on 07/08/2011 Knee Implant Other/Legacy - See Implant Description [employer] Description:Device Manufactu rer - [employer]. Body Location - Other. Left. Device Status Text - KNEE [id number]. J J Sig Patella Oval 38 - Robert [id number] Implanted:Qty: 1 on 07/08/2011 Knee Implant Other/Legacy - See Implant Description [employer] Description:Device Manufactu rer - [employer]. Body Location - Other. Right. Device Status Text - KNEE [id number]. J J Sig Patella Oval 38 - Robert [id number] Implanted:Qty: 1 on 07/08/2011 Knee Implant Other/Legacy - See Implant Description [employer] Description:Device Manufactu rer - [employer]. Body Location - Other. Left. Device Status Text - KNEE [id number]. Sigma Post Stab.W Lug Fem Sz 6 Lt - Robert [id number] Implanted:Qty: 1 on 07/08/2011 Knee Implant Other/Legacy - See Implant Description [employer] Description:Device Manufactu rer - [employer]. Body Location - Other. Left. Device Status Text - KNEE [id number]. Depuy-Tib Tray Mod Cement Cocr Sz5 - Robert [id number] Implanted:Qty: 1 on 07/08/2011 Knee Implant Other/Legacy - See Implant Description [employer] Description:Device Manufactu rer - [employer]. Body Location - Other. Right. Device Status Text - KNEE [id number]. Depuy-Tib Tray Mod Cement Cocr Sz5 - Robert [id number] Implanted:Qty: 1 on 07/08/2011 Knee Implant Other/Legacy - See Implant Description [employer] Description:Device Manufactu rer - [employer]. Body Location - Other. Left. Device Status Text - KNEE [id number]. Sigma Post Stab.W Lug Fem Sz 6 Rt - Robert [id number] Implanted:Qty: 1 on 07/08/2011 Knee Implant Other/Legacy - See Implant Description [employer] Description:Device Manufactu rer - [employer]. Body Location - Other. Right. Device Status Text - KNEE [id number]. Cement Bone Large - Robert [id number] Implanted:Qty: 4 on 07/08/2011 Misc Other Anshul Description:Device Manufactu rer - Anshul Valencia.. Device [...] HCV PCR, S Routine 06/12/2017 11:35 [address] CERTIFIED NURSING ATTENDANT CT ABDOMEN PELVIS WITH IV CONTRAST Routine 04/10/2000 4:00 AM CERTIFIED NURSING ATTENDANT from Last 3 Months or Most Recently [...] 10:26 AM CDT 12/23/2023 11:46 AM CDT Guillermo Marcelo M.D. LAB BLOOD ADD-ON Final Result [facility] [address] [place] [address], [facility] NPRG [facility] [address] [place] [address] * (ABNORMAL) Basic Metabolic Panel (10/26/2023 2:00 PM CDT) Potassium, P 5.1 3.6 - 5.2 mmol/L [...] M.D. LAB BLOOD ADD-ON Final Result [facility] [address] [place] [address], [facility] [address] [place] [address] * HCV AB Scrn w/Reflex to HCV PCR, S (06/12/2017 11:35 AM CERTIFIED NURSING ATTENDANT) HCV Ab Screen, S Negative Negative [facility] Comment:Pqkgve-ru-qflobb rat io is <1.00. 06/12/2017 11:3 5 AM CERTIFIED NURSING ATTENDANT 06/12/2017 11:35 AM CERTIFIED NURSING ATTENDANT Noah Adan M.D. LAB MICROBIOLOGY - BLOOD ORDERABLES Final Result Performing Organization Address [facility] Co de Phone Number [facility] [address] [place], [place] [address] * CT Abdomen Pelvis with IV Contrast (04/10/2000 4:00 AM CERTIFIED NURSING ATTENDANT) Anatomical Region Laterality Modality Abdomen, Pelvis N/A Computed Tomogra phy 04/10/2000 4:00 AM CERTIFIED NURSING ATTENDANT Narrative 04/10/2000 7:16 AM CERTIFIED NURSING ATTENDANT 10-Apr-2000 04:00:00 ??Exam: CT ABDOMEN w & PELVIS w Indications: abdo pain, mid epigastrium ORIGINAL REPORT - 10-Apr-2000 05:19:00 ([id number]) CT abdomen and pelvis with oral and [...] cc's, debility) Electronically signed by: ?? Lynn [id number] ([id number]) 10-Apr-2000 05:19 I have reviewed the films/images and agree with the above interpretation. Electronically signed by: ?? Richi Dyer M.D. ?? [phone] 10-Apr-2000 07:16 Procedure Note Jagdish Dyer M.D. [...] 120 cc's, debility) Electronically signed by: Lynn [phone] ([id number]) 10-Apr-2000 05:19 I have reviewed the films/images and agree with the above interpretation. Electronically signed by: Richi Dyer M.D. [phone] 10-Apr-2000 07:16 Albert Vanessa M.D. IM CT PROCEDURES Final Result from Last 3 Months or Most Recently Relevant to Health Maintenance Insurance MEDICARE [facility] Care Teams Television Mechanic Relationship Specialty Start Date End Date [place] [address] PCP - General Family Medicine 07/30/23 [facility] 09/02/23
--- OUTSIDE RECORDS SUMMARY | 2024-03-09 10:15 | XMS_ITS | Encounter Summary ---
Author Organization [facility] Address [address] [place] [address] Care Team Providers Care Mission Analyst Name Role Phone Guillermo Marcelo M.D. Primary Care Provider [phone] Encounter Details Date Type Department Care Team (Late st Contact Info) Description 02/17/2024 Orders Only Department of Ophthalmology in [place], [place] [address] [place] [address] Sirena Lr, C.O.A. [address] [place] [phone] Social History Tobacco Use Types Packs/Day Years [...] How often do you attend chur or roman catholic services? More than 4 times per year 09/19/2021 Do you belong to any clubs o r organizations such as mandaeism groups, unions, fraternal or athletic groups, or [...] Answer Date Recorded PHQ-2 Score 0 08/31/2023 [facility] of Occupat ional Health - Occupational Stress [...] your living situation today? [facility] 12/08/2022 Education Answer Date Recorded What is the highest level of school you have completed or the highest degree you have received? 12th grade 09/19/2021 Sex and Gender Information Value Date Recorded Sex Assigned at Male 10/15/2017 7:21 PM CDT Legal Sex Male 2:00 AM PRIZE JACKER Gender Identity Male 10/15/2017 7:21 PM CDT Sexual Orientation Straight 10/15/2017 7: 21 PM CDT documented as of this encounter Plan of Treatment Upcoming Encounters Date Type Department Care Team (Latest Contact Info) Description 05/04/2024 10:00 AM PRIZE JACKER Comprehensive Visit Department of Sleep Medicine in [place], [place] [address] [place] [phone] Leighton Schmitz M.D. [address] [place] [phone] Discharge Disposition: Home or Self Care documented as of this encounter Visit Diagnoses Not on filedocumented in this encounter Additional Health Concerns Assessment Noted Time PHQ-9 Depression Total Score: 2 06/11/19 18 1:22 PM PRIZE JACKER documented as of this encounter Care Teams Mission Analyst Relationship Specialty Start Date End Date Guillermo Marcelo M.D. [address] [facility] [place] [address] PCP - General Family Medicine 07/30/23 [facility] 09/02/23 documented as of this encounter
--- OUTSIDE RECORDS SUMMARY | 2024-03-09 10:16 | XMS_ITS | Encounter Summary ---
Author Organization [facility] Address [address] [place] [address] Care Team Providers Care Smoke Jumper Name Role Phone Guillermo Marcelo M.D. Primary Care Provider Encounter Details Date Type Department Care Team (Late st Contact Info) Description 10/08/2016 Historical Ophthalmology RST OPH Urban Garza M.D. [address] [address] Social History Tobacco Use Types Packs/Day Years Used Date Smoking Tobacco: Never Assessed Sex and Gender Information Value Date Recorded Sex Assigned at Male 10/15/2017 7:21 PM CDT Legal Sex Male 2:00 AM METAL CEILING HANGER Gender Identity Male 10/15/2017 7:21 PM CDT Sexual Orientation Straight 10/15/2017 7: 21 PM CDT documented as of this encounter Progress Notes * Urban Garza M.D. - 10/08/2016 3:06 PM CDT Eye General CHIEF COMPLAINT Iridocyclitis, LEFT eye HISTORY OF PRESENT ILLNESS No new eye concerns since last visit.Things are going good with the left eye. Patient reports no visual changes. Denies diplopia, flashes of light, floaters and ocular pain. NSW: Reports no concern with vision or new changes. Currently on Prednosine QD and Cosopt BID. IMPRESSION / REPORT / PLAN 28 Jan 2016 OCT Macula: Avg thickness 318/316 (OD/OS), no CME, regular foveal contour. 28 Jan 2016 FA/ICG: Three small dot areas of hyperfluorescence in the RIGHT eye at 5:57, and possible staining nearby at 6:06. Otherwise no filling defects. #1 Iridocyclitis, LEFT eye #2 Ankylosing spondylitis - Diagnosed with ankylosing spondylitis in his mid 20's. No prior episodes of eye inflammation thathe can recall outside of a few FBs. - Workup to rule-out alternative etiologies returned negative with 1st episode. - Currently on 2nd episode. We will start treatment aggressively with PF (did not require Durezol with prior episode). 08 Oct 2016: LE quiet, pressure stable on QD Pred Forte and Cosopt BID. Discussed that options would be to continue on QD Pred Forte for several months in light of the short period of time between resolution of his first episode and his 2nd flare (<3 months), vs taperoff topical steroid completely. PLAN: Continue Pred Forte QD Continue Cosopt BID while on Pred Forte RTC 2-3 months for follow-up. Contact information provided, and instructed to call with any worsening before follow-up. May discontinue drops at follow-up pending clinical stability, plan as discussed with Dr. Nascimento. Contact using phone or patient portal. DIAGNOSIS #1 Iridocyclitis, LEFT eye #2 Ankylosing spondylitis CDM Reports - EYEGEN Id: [id number] Status: Fnl documented in this encounter Plan of Treatment Upcoming Encounters Date Type Department Care Team (Latest Contact Info) Description 05/04/2024 10:00 AM METAL CEILING HANGER Comprehensive Visit Department of Sleep Medicine in [place], [place] [address] [place] [phone] Leighton Schmitz M.D. [address] [place] [phone] Discharge Disposition: Home or Self Care documented as of this encounter Visit Diagnoses Not on filedocumented in this encounter Additional Health Concerns Infection Onset Date Last Indicated Resolved Time COVID19 Pending 01/28/2021 01/28/2021 01/28/2021 3 :10 PM CDT COVID19 Pending 09/28/2021 09/28/2021 09/29/2021 1 :16 AM CDT COVID19 Pending 11/05/2021 11/05/2021 11/06/2021 2 :26 AM CDT Assessment Noted Time PHQ-9 Depression Total Score: 2 03/27/20 16 8:21 AM METAL CEILING HANGER documented as of this encounter Care Teams Smoke Jumper Relationship Specialty Start Date End Date Guillermo Marcelo M.D. [address] [facility] [place] [address] PCP - General Family Medicine 07/30/23 [facility] 09/02/23 documented as of this encounter
--- OUTSIDE RECORDS SUMMARY | 2024-03-09 10:16 | XMS_ITS | Encounter Summary ---
Author Organization [facility] Address [address] [place] [address] Care Team Providers Care Handbell Choir Director Name Role Phone Guillermo Marcelo M.D. Primary Care Provider Encounter Details Date Type Department Care Team (Late st Contact Info) Description 01/23/2016 Historical Ophthalmology RST OPH Urban Garza M.D. [address] [address] Social History Tobacco Use Types Packs/Day Years Used Date Smoking Tobacco: Never Assessed Sex and Gender Information Value Date Recorded Sex Assigned at Male 10/15/2017 7:21 PM CDT Legal Sex Male 2:00 AM GAS ADJUSTER Gender Identity Male 10/15/2017 7:21 PM CDT Sexual Orientation Straight 10/15/2017 7: 21 PM CDT documented as of this encounter Progress Notes * Urban Garza M.D. - 01/23/2016 1:08 PM CDT Eye General CHIEF COMPLAINT left eye - red/irritated HISTORY OF PRESENT ILLNESS Red, irritation, cloudy vision, mattery, tearing, photophobic, left eye;x 9 days; worsening since first noted. NSW: Symptoms began 9 days ago, consisting of itching, gravely feeling to the eye, epiphora, mattering and crusting in the AM, all in the LEFT eye. The eye has also been red, and he has some minor photophobia. He has had no purulent discharge, no recent fevers. No symptoms in the RIGHT eye. Vision in the LEFT eye seems to be down, and he does also report a deeper aching type pain that is exacerbated by bright lights. No new joint pains or headaches. Diagnosed with Ankylosing Spondylitisin his 20's. He is not taking any medications for this. He reports no heel pain, oral ulcers, pain with urination, gastrointestinal complaints. He has a long-standing rash on his back, and a few lesions on his upper lip. IMPRESSION / REPORT / PLAN #1 Iridocyclitis, LEFT eye #2 Ankylosing spondylitis - Diagnosed with ankylosing spondylitis in his mid 20's. No prior episodes of eye inflammation thathe can recall outside of a few FBs. - His eye symptoms may be HLA-B27 related, however given that this is his first reported episode ofanterior uveitis we will proceed with workup to rule-out alternative diagnoses including studies listed below, and refer to Rheumatology for evaluation of systemic symptoms and recommendations for systemic therapy. - Pred Forte Q1HWA - Atropine BID for cycloplegia - Referral to Rheumatology for recommendations regarding systemic therapy and further workup - Discussed diagnosis, etiology, and further workup, all questions answered. - Follow-up on 01/27 with NSW, 01/30 with NSW. #3 CME - FA/ICG - Macula OCT Studies include: - CBC - ESR - CRP - CCP - Cr - VZV IgG, IgM - HSV 1,2 Ab - Syphilis IgG, w/reflex RPR - TB skin test - Chest Xray - UA - SS-A/SS-B - LAURA - Calcium - SARAH/Lysozyme - ANCA panel DIAGNOSIS #1 Iridocyclitis, LEFT eye #2 Ankylosing spondylitis #3 CME CDM Reports - EYEGEN Id: [id number] Status: Fnl documented in this encounter Plan of Treatment Upcoming Encounters Date Type Department Care Team (Latest Contact Info) Description 05/04/2024 10:00 AM GAS ADJUSTER Comprehensive Visit Department of Sleep Medicine in [address] [phone] Leighton Schmitz M.D. [address] [place] [address] [place] [phone] Discharge Disposition: Home or Self Care documented as of this encounter Visit Diagnoses Not on filedocumented in this encounter Additional Health Concerns Infection Onset Date Last Indicated Resolved Time COVID19 Pending 01/28/2021 01/28/2021 01/28/2021 3 :10 PM CDT COVID19 Pending 09/28/2021 09/28/2021 09/29/2021 1 :16 AM CDT COVID19 Pending 11/05/2021 11/05/2021 11/06/2021 2 :26 AM CDT Assessment Noted Time PHQ-9 Depression Total Score: 3 08/23/19 14 1:09 PM CDT documented as of this encounter Care Teams Handbell Choir Director Relationship Specialty Start Date End Date Guillermo Marcelo M.D. [address] [place] [phone] PCP - General Family Medicine 07/30/23 [facility] 09/02/23 documented as of this encounter
--- OUTSIDE RECORDS SUMMARY | 2024-03-09 10:16 | XMS_ITS | Encounter Summary ---
Author Organization [facility] Address [address] [place] [address] Care Team Providers Care Clipman Name Role Phone Guillermo Marcelo M.D. Primary Care Provider Encounter Details Date Type Department Care Team (Late st Contact Info) Description 06/12/2017 Historical Ophthalmology RST OPH Urban Garza M.D. [address] [address] Social History Tobacco Use Types Packs/Day Years Used Date Smoking Tobacco: Never Assessed Sex and Gender Information Value Date Recorded Sex Assigned at Male 10/15/2017 7:21 PM CDT Legal Sex Male 2:00 AM ASSOCIATE PROFESSOR OF PSYCHOLOGY Gender Identity Male 10/15/2017 7:21 PM CDT Sexual Orientation Straight 10/15/2017 7: 21 PM CDT documented as of this encounter Progress Notes * Urban Garza M.D. - 06/12/2017 8:26 AM CST Eye General CHIEF COMPLAINT redness; left eye HISTORY OF PRESENT ILLNESS Patient here for Iridocyclitis; left eye; since 01/2016; vision stable. Denies redness since last seen. IMPRESSION / REPORT / PLAN 12 Jun 2017 OCR RNFL: Avg thickness 100 OU. No thinning OU. 12 Jun 2017 Color photos: Consistent with exam. 28 Jan 2016 OCT Macula: Avg thickness [...] etiologies returned negative with 1st episode. - Two total episodes, with 3 month quiet interval between (Apr - July). Treated aggressively with PF for first episode, and required Durezol with 2nd episode (worsened on PF). D/c'd steroidsafter 2nd episode on 02/04/2017. 12 Jun 2017 I/R/P: Doing well today off all drops. IOP stable, testing shows healthy nerve OU, and no sign of inflammation. RTC 1-2 years, sooner if any concerns or new symptoms. DIAGNOSIS #1 Iridocyclitis, LEFT eye #2 Ankylosing spondylitis CDM Reports - EYEGEN Id: [id number] Status: Fnl documented in this encounter Plan of Treatment Upcoming Encounters Date Type Department Care Team (Latest Contact Info) Description 05/04/2024 10:00 AM ASSOCIATE PROFESSOR OF PSYCHOLOGY Comprehensive Visit Department of Sleep Medicine in [address] [phone] Leighton Schmitz M.D. [address] [place] [phone] Discharge Disposition: Home or Self Care documented [...] Total Score: 2 06/11/19 18 1:22 PM ASSOCIATE PROFESSOR OF PSYCHOLOGY documented as of this encounter Care Teams Clipman Relationship Specialty Start Date End Date Guillermo Marcelo M.D. NPCassidy: [phone] [place] [phone] PCP - General Family Medicine 07/30/23 [facility] 09/02/23 documented as of this encounter
--- OUTSIDE RECORDS SUMMARY | 2024-03-09 10:16 | XMS_ITS | Encounter Summary ---
Author Organization [facility] Address [address] [place] [address] Care Team Providers Care Resource Teacher Name Role Phone Guillermo Marcelo M.D. Primary Care Provider [phone] Reason for Visit * Outpatient (Routine) - Closed Specialty Diagnoses / Procedures Referred By Gaby lagunas Referred To Contact Rheumatology Jagdish Buenrostro M.D. [address] [place] [address] Phone: tel: fax: [facility] Referral ID Status Reason Start Date Expiration Date Visits Re quested Visits Authorized [id number] Closed 10/30/2023 04/30/2025 1 1 Encounter Details Date Type Department Care Team (Latest Contact Info) Description 12/03/2023 10:30 AM CDT Telemedicine Division of Rheumatology in [place], [place] [address] [place] [phone] Jagdish Buenrostro M.D. [address] [place] [phone] Spondylitis Ankylosing (HCC) (Primary Dx); Uveitis Anterior Recurrent Left; Cancer Renal Cell Carcinoma Personal History Social [...] week 09/19/2021 How often do you attend [facility] or anabaptist services? More than 4 times per year 09/19/2021 Do you belong to any clubs o r organizations such as religion groups, unions, fraternal or athletic groups, or [...] Answer Date Recorded PHQ-2 Score 0 08/31/2023 [facility] of Occupat ional Health - Occupational Stress [...] your living situation today? I have a [facility] place to live 12/08/2022 Education Answer Date Recorded What is the highest level of school you have completed or the highest degree you have received? 12th grade 09/19/2021 Sex and Gender Information Value Date Recorded Sex Assigned at Male 10/15/2017 7:21 PM CDT Legal Sex Male 2:00 AM VELVET CUTTER Gender Identity Male 10/15/2017 7:21 PM CDT Sexual Orientation Straight 10/15/2017 7: 21 PM CDT documented as of this encounter Progress Notes * Jagdish Buenrostro M.D. - 12/03/2023 10:30 AM CDT VIDEO VISIT REASON FOR VISIT: Discussion of test results Video visit performed via secure zoom platform I saw this patient previously on November 18, 2023. Impression at that time was: #1 40+ year history of ankylosing spondylitis #2 History of uveitis related to #1 #3 Status post right nephrectomy, history of renal cell carcinoma #4 Renal insufficiency Since that time he had a satisfactory eye exam and there was no evidence of active uveitis. I appreciate Dr. Nascimento's input. There does not appear to be any barrier from our point of view to proceed with checkpoint inhibitors given his history of uveitis and ankylosing spondylitis at this time. Patient family seems comfortable with this approach and discussion. Total time 10 minutes. IMPRESSION #1 40+ year history of ankylosing spondylitis #2 History of uveitis related to #1, no evidence of uveitis this time #3 Status post right nephrectomy, history of renal cell carcinoma #4 Renal insufficiency documented in this encounter Plan of Treatment Upcoming Encounters Date Type Department Care Team (Latest Contact Info) Description 05/04/2024 10:00 AM VELVET CUTTER Comprehensive Visit Department of Sleep Medicine in [place], [place] [address] [place] [phone] Leighton Schmitz M.D. [address] [place] [address] Discharge Disposition: Home or Self Care documented as of this encounter Visit Diagnoses Diagnosis Spondylitis Ankylosing (HCC)- Primary Uveitis Anterior Recurrent Left Cancer Renal Cell Carcinoma Personal History documented in this encounter Additional Health Concerns Assessment Noted Time PHQ-9 Depression Total Score: 2 06/11/19 18 1:22 PM VELVET CUTTER documented as of this encounter Care Teams Resource Teacher Relationship Specialty Start Date End Date uGillermo Marcelo M.D. [address] [place] [phone] PCP - General Family Medicine 07/30/23 [facility] 09/02/23 documented as of this encounter
--- OUTSIDE RECORDS SUMMARY | 2024-03-09 10:16 | XMS_ITS | Encounter Summary ---
Author Organization [facility] Address [address] [place] [address] Care Team Providers Care System Support Administrator Name Role Phone Guillermo Marcelo M.D. Primary Care Provider Encounter Details Date Type Department Care Team (Late st Contact Info) Description 09/03/2016 Historical Ophthalmology RST OPH Urban Garza M.D. [address] [address] Social History Tobacco Use Types Packs/Day Years Used Date Smoking Tobacco: Never Assessed Sex and Gender Information Value Date Recorded Sex Assigned at Male 10/15/2017 7:21 PM CDT Legal Sex Male 2:00 AM MIDWIFE PRACTITIONER Gender Identity Male 10/15/2017 7:21 PM CDT Sexual Orientation Straight 10/15/2017 7: 21 PM CDT documented as of this encounter Progress Notes * Urban Garza M.D. - 09/03/2016 12:14 PM CDT Eye General CHIEF COMPLAINT Follow up. HISTORY OF PRESENT ILLNESS Patient states that there are no vision changes, he states that the vision isn't worsening, Patientdenies ocular pain. Patient denies any further concerns at this time. NSW: Reports that things are going well and he has no new concerns today IMPRESSION / REPORT / PLAN 28 Jan [...] (did not require Durezol with prior episode). 03 Sep 2016 Cell resolved, pressure stable today. PLAN: Inflammation is resolved. Continue titration down to Pred Forte QD. Continue Cosopt BID while on Pred Forte until return to re-check pressure. RTC on 10/08 for appt. Contact information provided, and instructed to call with any worsening before follow-up. Contact using phone or patient portal. DIAGNOSIS #1 Iridocyclitis, LEFT eye #2 Ankylosing spondylitis CDM Reports - EYEGEN Id: [id number] Status: Fnl documented in this encounter Plan of Treatment Upcoming Encounters Date Type Department Care Team (Latest Contact Info) Description 05/04/2024 10:00 AM MIDWIFE PRACTITIONER Comprehensive Visit Department of Sleep Medicine in [address] [phone] Leighton Schmitz M.D. [address] [place] [phone] Discharge Disposition: Home or Self Care documented [...] Total Score: 2 03/27/20 16 8:21 AM MIDWIFE PRACTITIONER documented as of this encounter Care Teams System Support Administrator Relationship Specialty Start Date End Date Guillermo Marcelo M.D. NPCassidy: [phone] [place] [phone] PCP - General Family Medicine 07/30/23 [facility] 09/02/23 documented as of this encounter
--- OUTSIDE RECORDS SUMMARY | 2024-03-09 10:16 | XMS_ITS | Encounter Summary ---
Author Organization [facility] Address [address] [place] [address] Care Team Providers Care Meat And Seafood Manager Name Role Phone Guillermo Marcelo M.D. Primary Care Provider [phone] Encounter Details Date Type Department Care Team (Late st Contact Info) Description 08/04/2016 Historical Ophthalmology RST OPH Urban Garza M.D. [address] [address] Social History Tobacco Use Types Packs/Day Years Used Date Smoking Tobacco: Never Assessed Sex and Gender Information Value Date Recorded Sex Assigned at Male 10/15/2017 7:21 PM CDT Legal Sex Male 2:00 AM LEGAL CLERK Gender Identity Male 10/15/2017 7:21 PM CDT Sexual Orientation Straight 10/15/2017 7: 21 PM CDT documented as of this encounter Progress Notes * Urban Garza M.D. - 08/04/2016 8:54 AM CDT Eye General CHIEF COMPLAINT Left eye follow up HISTORY OF PRESENT ILLNESS Patient is here following up on the left eye. He notes blurry vision in the left eye remains the same; no change. He notes the redness and headache seem to be gone. He notes that his light sensitivity isn't any worse but it's hard to tell if it's better due to the drops he takes. Denies new symptoms. Denies additional concerns. NSW: Has been using Durezol 5x/day and cyclopentolate BID. Reports that the pain and headache have improved. IMPRESSION / REPORT / PLAN 28 Jan [...] (did not require Durezol with prior episode). Cosopt and Brimonidine administered @ 10:04. Pressure 32 OS. Pressure re-check @ 11:05 was 17 OD. PLAN 01 Aug 2016: Inflammation is stable to slightly improved, cell is less but he still has corneal edema and d-folds. Pressure is also elevated today so we will add Cosopt and Brimonidine. Considered TobraDex ointment QHS for 24-hour steroid coverage, however in light of his pressure response we will hold at this time. Continue Durezol 5x/day until return. Cyclo BID until return. RTC on 324 AM for appt. Contact information provided, and instructed to call with any worsening before follow-up. DIAGNOSIS #1 Iridocyclitis, LEFT eye #2 Ankylosing spondylitis CDM Reports - EYEGEN Id: [id number] Status: Fnl documented in this encounter Plan of Treatment Upcoming Encounters Date Type Department Care Team (Latest Contact Info) Description 05/04/2024 10:00 AM LEGAL CLERK Comprehensive Visit Department of Sleep Medicine in [place], [place] [address] [place] [phone] Leighton Schmitz M.D. [address] [place] [phone] Discharge Disposition: Home or Self Care documented [...] Total Score: 2 03/27/20 16 8:21 AM LEGAL CLERK documented as of this encounter Care Teams Meat And Seafood Manager Relationship Specialty Start Date End Date Guillermo Marcelo M.D. [address] [place] [phone] PCP - General Family Medicine 07/30/23 [facility] 09/02/23 documented as of this encounter
--- OUTSIDE RECORDS SUMMARY | 2024-03-09 10:16 | XMS_ITS | Encounter Summary ---
Author Organization [facility] Address [address] [place] [address] Care Team Providers Care Guest Services Officer Name Role Phone Guillermo Marcelo M.D. Primary Care Provider [phone] Encounter Details Date Type Department Care Team (Late st Contact Info) Description 03/25/2016 Historical Ophthalmology RST OPH Urban Garza M.D. [address] [address] Social History Tobacco Use Types Packs/Day Years Used Date Smoking Tobacco: Never Assessed Sex and Gender Information Value Date Recorded Sex Assigned at Male 10/15/2017 7:21 PM CDT Legal Sex Male 2:00 AM FIREBRICK LAYER HELPER Gender Identity Male 10/15/2017 7:21 PM CDT Sexual Orientation Straight 10/15/2017 7: 21 PM CDT documented as of this encounter Progress Notes * Urban Garza M.D. - 03/25/2016 1:51 PM CST Eye General CHIEF COMPLAINT Follow up on left eye HISTORY OF PRESENT ILLNESS Patient states vision is stable. Patient denies ocular pain. Denies floaters, flashes. No new concerns. Currently using Pred Forte BID. NSW: Feels that he is back to 100% with no new symptoms today, and no concerns. IMPRESSION / REPORT / PLAN 28 Jan [...] will proceed with workup to rule-out alternative diagnoses, and refer to Rheumatology for evaluation of systemic symptoms and recommendations for systemic therapy. Studies returned negative for alternative etiology of #1. - Much improved on 01/27, including improved vision, AC cell. - Continued improvement on 01/31, however there remained 0.5+ cell, and 1+ pigment. Initiated TobraDex ointment QHS in the hopes of decreasing PF to Q2HWA at next visit, and was then able to discontinue the ointment. Pressures have remained stable. - Continued improvement on 02/06, remained quiet on 02/19, 03/05, 03/25. PLAN 03/25/2016: - PF to QD, switch to QOD on 04/09 (odd number days), with last dose on 04/23 (switch day Thursday). - Follow-up on Thursday, 04/29. Instructed to call if having any more redness in the eye, any worsening of photophobia or worsening of vision. - All questions answered. DIAGNOSIS #1 Iridocyclitis, LEFT eye #2 Ankylosing spondylitis CDM Reports - EYEGEN Id: [id number] Status: Fnl documented in this encounter Plan of Treatment Upcoming Encounters Date Type Department Care Team (Latest Contact Info) Description 05/04/2024 10:00 AM FIREBRICK LAYER HELPER Comprehensive Visit Department of Sleep Medicine in [place], [place] [address] [place] [phone] Leighton Schmitz M.D. [address] [place] [phone] Discharge Disposition: Home or Self Care documented [...] documented as of this encounter Care Teams Guest Services Officer Relationship Specialty Start Date End Date Guillermo Marcelo M.D. [address] [place] [phone] PCP - General Family Medicine 07/30/23 [facility] 09/02/23 documented as of this encounter
--- OUTSIDE RECORDS SUMMARY | 2024-03-09 10:16 | XMS_ITS | Encounter Summary ---
Author Organization [facility] Address [address] [place] [address] Care Team Providers Care Tier In Name Role Phone Guillermo Marcelo M.D. Primary Care Provider [phone] Encounter Details Date Type Department Care Team (Late st Contact Info) Description 08/01/2016 Historical Ophthalmology RST OPH Urban Garza M.D. [address] [address] Social History Tobacco Use Types Packs/Day Years Used Date Smoking Tobacco: Never Assessed Sex and Gender Information Value Date Recorded Sex Assigned at Male 10/15/2017 7:21 PM CDT Legal Sex Male 2:00 AM STOGY ROLLER Gender Identity Male 10/15/2017 7:21 PM CDT Sexual Orientation Straight 10/15/2017 7: 21 PM CDT documented as of this encounter Progress Notes * Urban Garza M.D. - 08/01/2016 7:37 AM CDT Eye General CHIEF COMPLAINT iridocyclitis left eye HISTORY OF PRESENT ILLNESS Blurred vision; left eye; notices since starting the Prednisolone. Redness has improved, headache has improved. Hard to say if the light sensitivity has improved, due to the brightness of the snow. Using PF Q1H while awake. Did not cotton picker operator the Cyclo; was not sure if it would help and did not wantto make the light sensitivity worse. NSW: Reports that things are somewhat improved today. Reminds me that he is going to be out of townto week of the . Reports that the vision is more blurry in the left eye. Reports that he has been vigalent with getting the Pred Forte every hour, he estimates about 15 or 16 times per day. IMPRESSION / REPORT / PLAN 28 Jan [...] (did not require Durezol with prior episode). PLAN 01 Aug 2016: Inflammation has worsened, and he now has corneal edema and d-folds. Transition to Durezol 6x/day today until return. Cyclo BID until return. RTC on 08/01 AM forappt. Contact information provided, and instructed to call with any worsening before follow-up. DIAGNOSIS #1 Iridocyclitis, LEFT eye #2 Ankylosing spondylitis CDM Reports - EYEGEN Id: [id number] Status: Fnl documented in this encounter Plan of Treatment Upcoming Encounters Date Type Department Care Team (Latest Contact Info) Description 05/04/2024 10:00 AM STOGY ROLLER Comprehensive Visit Department of Sleep Medicine in [place], [place] [address] [place] [phone] Leighton Schmitz M.D. [address] [place] [phone] Discharge Disposition: Home or Self Care documented [...] Total Score: 2 03/27/20 16 8:21 AM STOGY ROLLER documented as of this encounter Care Teams Tier In Relationship Specialty Start Date End Date Guillermo Marcelo M.D. NPCassidy: [phone] [address] [place] [address] PCP - General Family Medicine 07/30/23 [facility] 09/02/23 documented as of this encounter
--- OUTSIDE RECORDS SUMMARY | 2024-03-09 10:16 | XMS_ITS | Encounter Summary ---
Author Organization [facility] Address [address] [place] [address] Care Team Providers Care Stamp Clerk Name Role Phone Guillermo Marcelo M.D. Primary Care Provider [phone] Encounter Details Date Type Department Care Team (Latest Contact Info) Description 12/23/2023 10:14 AM CDT - 12/23/2023 11:59 PM CDT Hospital Encounter Department of Laboratory Medicine in [place], [place] [address] [place] [address] Guillermo Marcelo M.D. [address] [place] [address] Hyperlipidemia Discharge Disposition: Home or Self Care Social History Tobacco Use Types Packs/Day Years [...] How often do you attend chur or lutheran services? More than 4 times per year 09/19/2021 Do you belong to any clubs o r organizations such as mu-ism groups, unions, fraternal or athletic groups, or [...] Answer Date Recorded PHQ-2 Score 0 08/31/2023 [facility] [place] of Occupat ional Health - Occupational Stress [...] your living situation today? I have a [facility] place to live 12/08/2022 Education Answer Date Recorded What is the highest level of school you have completed or the highest degree you have received? 12th grade 09/19/2021 Sex and Gender Information Value Date Recorded Sex Assigned at Male 10/15/2017 7:21 PM CDT Legal Sex Male 2:00 AM SENIOR CONTROL SYSTEMS ENGINEER Gender Identity Male 10/15/2017 7:21 PM CDT Sexual Orientation Straight 10/15/2017 7: 21 PM CDT documented as of this encounter Medications at Time of Discharge atorvastatin (LIPITOR) 10 mg tablet Take 1 tablet (10 mg total) by mouth daily. 90 tablet 3 02/25/2023 mv-min/folic/K1/l ycopen/lutein (CENTRUM SILVER ULTRA MEN'S ORAL) Take 1 tablet by mouth daily. documented as of this encounter Plan of Treatment Upcoming Encounters Date Type Department Care Team (Latest Contact Info) Description 05/04/2024 10:00 AM SENIOR CONTROL SYSTEMS ENGINEER Comprehensive Visit Department of Sleep Medicine in [place], [place] [address] [place] [phone] Leighton Schmitz M.D. [address] [place] [phone] Discharge Disposition: Home or Self Care documented as of this encounter Procedures Procedure Name Priority Date/Time Associated Diagnosis Comments LIPID PANEL, S Routine 12/23/2023 10:26 AM CDT Hyperlipidemia documented in this encounter Results * Lipid Panel (12/23/2023 10:26 AM CDT) Triglycerides 81 mg/dL 12/23/2023 12:06 PM CDT NPR Comment: ----REFERENCE VALUE---- Normal: <150 mg/dL Borderline High: 150-199 mg/dL High: 200-499 mg/dL Very High: > or =500 mg/dL Cholesterol, Total 162 mg/dL 2023 12:06 PM CDT NPRG Comment: ----REFERENCE VALUE---- Desirable: < 200 mg/dL Borderline High: 200 - 239 mg/dL High: > or = 240 mg/dL Cholesterol, LDL, Calculated 102 mg/dL 12/23/2023 12:06 PM T NPRG Comment: ----REFERENCE VALUE---- Desirable: <100 mg/dL [...] Marcelo M.D. LAB BLOOD ADD-ON Final Result [facility] [address] [place] [address], [facility] NPRG [facility] [address] [place] [address] documented in this encounter Visit Diagnoses Diagnosis Hyperlipidemia documented in this encounter Additional Health Concerns Assessment Noted Time PHQ-9 Depression Total Score: 2 06/11/19 18 1:22 PM SENIOR CONTROL SYSTEMS ENGINEER documented as of this encounter Care Teams Stamp Clerk Relationship Specialty Start Date End Date Guillermo Marcelo M.D. [address] [place] [address] PCP - General Family Medicine 07/30/23 [facility] 09/02/23 documented as of this encounter
--- OUTSIDE RECORDS SUMMARY | 2024-03-09 10:16 | XMS_ITS | Encounter Summary ---
Author Organization [facility] Address [address] [place] [address] Care Team Providers Care Sandblast Operator Name Role Phone Guillermo Marcelo M.D. Primary Care Provider [phone] Encounter Details Date Type Department Care Team (Late st Contact Info) Description 03/05/2016 Historical Ophthalmology RST OPH Urban Garza M.D. [address] [address] Social History Tobacco Use Types Packs/Day Years Used Date Smoking Tobacco: Never Assessed Sex and Gender Information Value Date Recorded Sex Assigned at Male 10/15/2017 7:21 PM CDT Legal Sex Male 2:00 AM DIGITAL ANALYTICS MANAGER Gender Identity Male 10/15/2017 7:21 PM CDT Sexual Orientation Straight 10/15/2017 7: 21 PM CDT documented as of this encounter Progress Notes * Urban Garza M.D. - 03/05/2016 1:12 PM CDT Eye General CHIEF COMPLAINT Follow up on left eye HISTORY OF PRESENT ILLNESS Patient is here for a follow up on his left eye. Patient states that his vision has been stable since his last visit. Patient denies ocular pain. Patient denies any floaters or flashes. Patient denies any new symptoms. NSW: Doing well today, no symptoms. He was able to follow the plan of 6x/day for a week then 5 drops per day for a week. IMPRESSION / REPORT / PLAN 28 Jan [...] - Continued improvement on 01/31, however there remains 0.5+ cell, and 1+ pigment. Initiated TobraDex ointment QHS in the hopes of decreasing PF to Q2HWA at next visit. Pressures stable. - Continued improvement on 02/06, remained quiet on 02/19, 03/05. PLAN 03/05/2016: - PF to 4 times per day, switch to 3 times per day on 03/12, and BID on 03/19 (switch day Thursday). - Follow-up on Thursday, 03/25. Instructed to call if having any more redness in the eye, any worsening of photophobia or worsening of vision. - All questions answered. DIAGNOSIS #1 Iridocyclitis, LEFT eye #2 Ankylosing spondylitis CDM Reports - EYEGEN Id: [id number] Status: Fnl documented in this encounter Plan of Treatment Upcoming Encounters Date Type Department Care Team (Latest Contact Info) Description 05/04/2024 10:00 AM DIGITAL ANALYTICS MANAGER Comprehensive Visit Department of Sleep Medicine in [place] [address] [place] [address] Leighton Schmitz M.D. [address] [place] [phone] Discharge Disposition: Home or Self Care documented [...] documented as of this encounter Care Teams Sandblast Operator Relationship Specialty Start Date End Date Guillermo Marcelo M.D. [address] [place] [address] PCP - General Family Medicine 07/30/23 [facility] 09/02/23 documented as of this encounter
--- OUTSIDE RECORDS SUMMARY | 2024-03-09 10:16 | XMS_ITS | Encounter Summary ---
Author Organization [facility] Address [address] [place] [address] Care Team Providers Care Wicker Worker Name Role Phone Guillermo Marcelo M.D. Primary Care Provider [phone] Encounter Details Date Type Department Care Team (Late st Contact Info) Description 01/28/2016 Historical Ophthalmology RST OPH Urban Garza M.D. [address] [address] Social History Tobacco Use Types Packs/Day Years Used Date Smoking Tobacco: Never Assessed Sex and Gender Information Value Date Recorded Sex Assigned at Male 10/15/2017 7:21 PM CDT Legal Sex Male 2:00 AM PUBLIC ADDRESS SYSTEMS MECHANIC Gender Identity Male 10/15/2017 7:21 PM CDT Sexual Orientation Straight 10/15/2017 7: 21 PM CDT documented as of this encounter Progress Notes * Urban Garza M.D. - 01/28/2016 8:28 AM CDT Eye General CHIEF COMPLAINT Iridocyclitis, LEFT eye HISTORY OF PRESENT ILLNESS Patient reports blurred vision; left eye; constant; x since last visit. NSW: Feeling that the LEFT eye is much improved from his last visit. Has been getting the steroid drops in about 9 times per day, and has been able to get the cycloplegic in BID. IMPRESSION / REPORT / PLAN 28 [...] on 01/27, including improved vision, AC cell. PLAN 01/28/2016: - Continue PF Q1HWA - Continue Atropine BID for cycloplegia - Follow-up on Thursday, 01/31 - Referral to Rheumatology for recommendations regarding systemic therapy and further workup - Discussed diagnosis, etiology, and further workup, all questions answered. DIAGNOSIS #1 Iridocyclitis, LEFT eye #2 Ankylosing spondylitis CDM Reports - EYEGEN Id: [id number] Status: Fnl documented in this encounter Plan of Treatment Upcoming Encounters Date Type Department Care Team (Latest Contact Info) Description 05/04/2024 10:00 AM PUBLIC ADDRESS SYSTEMS MECHANIC Comprehensive Visit Department of Sleep Medicine in [address] [phone] Leighton Schmitz M.D. [address] [place] [phone] Discharge Disposition: Home or Self Care documented [...] documented as of this encounter Care Teams Wicker Worker Relationship Specialty Start Date End Date Guillermo Marcelo M.D. [address] [place] [address] PCP - General Family Medicine 07/30/23 [facility] 09/02/23 documented as of this encounter
--- OUTSIDE RECORDS SUMMARY | 2024-03-09 10:16 | XMS_ITS | Encounter Summary ---
Author Organization [facility] Address [address] [place] [address] Care Team Providers Care Machine Records Units Supervisor Name Role Phone Guillermo Marcelo MD Primary Care Provider [phone] Encounter Details Date Type Department Care Team (Late st Contact Info) Description 03/04/2024 Office Communication [facility] [address] [facility] [address] [place] [address] Jodi Andres, RN [address] [place] [address] Social History Tobacco Use Types Packs/Day Years Used Date Smoking Tobacco: Former Cigars Smokeless Tobacco: Never Comments:Started smoking 197 0 Quit 08/31/23 Alcohol Use Standard Drinks/Week Comments Yes 1 (1 standard drink = 0.6 oz pur e alcohol) weekly Sex and Gender Information Value Date Recorded Sex Assigned at Not on file Legal Sex Male 3:09 PM EDT Gender Identity Not on file Sexual Orientation Not on file documented as of this encounter Miscellaneous Notes * Telephone Encounter - Jodi Andres RN - 03/04/2024 10:19 AM CDT Rai Feldman MD Hetland, Kelsey, RN Forgot to say. F/u with me in May or Jun with previsit labs then documented in this encounter Plan of Treatment Upcoming Encounters Date Type Department Care Team (Late st Contact Info) Description 06/22/2024 10:40 AM SPECTACLE TRUER Office Visit [facility] [address] [place] [address] Rai Feldman MD [address] [place] [address] documented as of this encounter Visit Diagnoses Not on filedocumented in this encounter Care Teams Machine Records Units Supervisor Relationship Specialty Start Date End Date Guillermo Marcelo MD [address] [place] [address] PCP - General Family Medicine 01/29/24 documented as of this encounter
--- OUTSIDE RECORDS SUMMARY | 2024-03-09 10:16 | XMS_ITS | Encounter Summary ---
Author Organization [facility] Address [address] [place] [address] Care Team Providers Care Home Health Cna Name Role Phone Guillermo Marcelo M.D. Primary Care Provider [phone] Encounter Details Date Type Department Care Team (Late st Contact Info) Description 02/01/2016 Historical Ophthalmology RST OPH Urban Garza M.D. [address] [address] Social History Tobacco Use Types Packs/Day Years Used Date Smoking Tobacco: Never Assessed Sex and Gender Information Value Date Recorded Sex Assigned at Male 10/15/2017 7:21 PM CDT Legal Sex Male 2:00 AM SURGICAL SERVICES DIRECTOR Gender Identity Male 10/15/2017 7:21 PM CDT Sexual Orientation Straight 10/15/2017 7: 21 PM CDT documented as of this encounter Progress Notes * Urban Garza M.D. - 02/01/2016 8:24 AM CDT Eye General CHIEF COMPLAINT Follow up HISTORY OF PRESENT ILLNESS Patient returns for Iridocyclitis, LEFT eye. He states no new concerns at this time. Patient denies ocular pain, flashes of light, floaters, or diplopia. Patient states vision has improved, but still has not regained his normal vision. NSW: Discomfort is at 0 today, and vision is much improved, even from the , but not yet at his baseline (and he is still using cycloplegia). He has been getting the PF in about 10 times per day if he is awake 14 hours. IMPRESSION / REPORT / PLAN 28 Jan [...] to Q2HWA at next visit. Pressures stable. PLAN 02/01/2016: - Continue PF Q1HWA - Add TobraDex ointment at night. - Continue Atropine BID for cycloplegia - Follow-up on , 02/06 AM - Discussed diagnosis, etiology, and further workup, all questions answered. DIAGNOSIS #1 Iridocyclitis, LEFT eye #2 Ankylosing spondylitis CDM Reports - EYEGEN Id: [id number] Status: Fnl documented in this encounter Plan of Treatment Upcoming Encounters Date Type Department Care Team (Latest Contact Info) Description 05/04/2024 10:00 AM SURGICAL SERVICES DIRECTOR Comprehensive Visit Department of Sleep Medicine in [place], [place] [address] [place] [phone] Leighton Schmitz M.D. [address] [place] [phone] Discharge Disposition: Home or Self Care documented [...] documented as of this encounter Care Teams Home Health Cna Relationship Specialty Start Date End Date Guillermo Marcelo M.D. [address] [place], [place] [address] [place] [address] PCP - General Family Medicine 07/30/23 [facility] 09/02/23 documented as of this encounter
--- OUTSIDE RECORDS SUMMARY | 2024-03-09 10:16 | XMS_ITS | Encounter Summary ---
Author Organization [facility] Address [address] [place] [address] Care Team Providers Care Media Account Executive Name Role Phone Guillermo Marcelo M.D. Primary Care Provider [phone] Encounter Details Date Type Department Care Team (Late st Contact Info) Description 07/29/2016 Historical Ophthalmology RST OPH Urban Garza M.D. [address] [address] Social History Tobacco Use Types Packs/Day Years Used Date Smoking Tobacco: Never Assessed Sex and Gender Information Value Date Recorded Sex Assigned at Male 10/15/2017 7:21 PM CDT Legal Sex Male 2:00 AM FELL CUTTER Gender Identity Male 10/15/2017 7:21 PM CDT Sexual Orientation Straight 10/15/2017 7: 21 PM CDT documented as of this encounter Progress Notes * Urban Garza M.D. - 07/29/2016 1:16 PM CDT Eye General CHIEF COMPLAINT iridocyclitis left eye HISTORY OF PRESENT ILLNESS Patient believes iridocyclitis is back, left eye. Redness began Wednesday 07/26, no other symptoms atthat time. Light sensitivity began yesterday. Feels like headache behind eye. No change in vision noted. NSW: As above. Has not been self-treating with any topical steroid. IMPRESSION / REPORT / PLAN 28 Jan [...] not require Durezol with prior episode). PLAN 29 Jul 2016: PF Q1HWA until return. Cyclo BID until return. RTC on 08/01 AM for 8:00 appt. Contact information provided, and instructed to call with any worsening before follow-up. DIAGNOSIS #1 Iridocyclitis, LEFT eye #2 Ankylosing spondylitis CDM Reports - EYEGEN Id: [id number] Status: Fnl documented in this encounter Plan of Treatment Upcoming Encounters Date Type Department Care Team (Latest Contact Info) Description 05/04/2024 10:00 AM FELL CUTTER Comprehensive Visit Department of Sleep Medicine in [address] [phone] Leighton Schmitz M.D. [address] [place] [phone] Discharge Disposition: Home or Self Care documented [...] Total Score: 2 03/27/20 16 8:21 AM FELL CUTTER documented as of this encounter Care Teams Media Account Executive Relationship Specialty Start Date End Date Guillermo Marcelo [place] [address] PCP - General Family Medicine 07/30/23 [facility] 09/02/23 documented as of this encounter
--- OUTSIDE RECORDS SUMMARY | 2024-03-09 10:16 | XMS_ITS | Encounter Summary ---
Author Organization [facility] Address [address] [place] [address] Care Team Providers Care Development Editor Name Role Phone Guillermo Marcelo M.D. Primary Care Provider Encounter Details Date Type Department Care Team (Late st Contact Info) Description 02/07/2016 Historical Ophthalmology RST OPH Urban Garza M.D. [address] [address] Social History Tobacco Use Types Packs/Day Years Used Date Smoking Tobacco: Never Assessed Sex and Gender Information Value Date Recorded Sex Assigned at Male 10/15/2017 7:21 PM CDT Legal Sex Male 2:00 AM SCRAP METAL BURNER Gender Identity Male 10/15/2017 7:21 PM CDT Sexual Orientation Straight 10/15/2017 7: 21 PM CDT documented as of this encounter Progress Notes * Urban Garza M.D. - 02/07/2016 11:02 AM CDT Eye General CHIEF COMPLAINT follow up on left eye HISTORY OF PRESENT ILLNESS feels vision is improving, only drops making it difficult to see. Patient denies ocular pain. denies any flashing lights or floaters. Denies any further concerns. NSW: Feels that the eye is doing well today. He continues to use the PF about 9- 10 times per day. IMPRESSION / REPORT / [...] Pressures stable. - Continued improvement on 02/06, PLAN 02/07/2016: - Continue PF Q2HWA, got of using 7x/day, continue at this for the next two weeks. - Continue TobraDex ointment at night for one more week, then discontinue on 02/13. - Discontinue Atropine BID for cycloplegia. - Will see rheumatology later today, I will watch for further recommendations. - Follow-up on Thursday, 10/5 PM. - All questions answered. DIAGNOSIS #1 Iridocyclitis, LEFT eye #2 Ankylosing spondylitis CDM Reports - EYEGEN Id: [id number] Status: Fnl documented in this encounter Plan of Treatment Upcoming Encounters Date Type Department Care Team (Latest Contact Info) Description 05/04/2024 10:00 AM SCRAP METAL BURNER Comprehensive Visit Department of Sleep Medicine in [address] [phone] Leighton Schmitz M.D. [address] [place] [phone] Discharge Disposition: Home or Self Care documented [...] documented as of this encounter Care Teams Development Editor Relationship Specialty Start Date End Date Guillermo Marcelo [place] [address] PCP - General Family Medicine 07/30/23 [facility] 09/02/23 documented as of this encounter
--- OUTSIDE RECORDS SUMMARY | 2024-03-09 10:16 | XMS_ITS | Encounter Summary ---
Author Organization [facility] Address [address] [place] [address] Care Team Providers Care Director Of Enterprise Applications Name Role Phone Guillermo Marcelo M.D. Primary Care Provider [phone] Encounter Details Date Type Department Care Team (Latest Contact Info) Description 11/05/2023 Clinical Communication Department of Ophthalmology in [place], [place] [address] [place] [address] Meghna Nascimento M.D. [address] [place] [phone] Social History Tobacco Use Types Packs/Day Years [...] How often do you attend chur or congregation services? More than 4 times per year 09/19/2021 Do you belong to any clubs o r organizations such as tenriism groups, unions, fraternal or athletic groups, or [...] Answer Date Recorded PHQ-2 Score 0 08/31/2023 [facility] - [...] your living situation today? I have a [facility] place to live 12/08/2022 Education Answer Date Recorded What is the highest level of school you have completed or the highest degree you have received? 12th grade 09/19/2021 Sex and Gender Information Value Date Recorded Sex Assigned at Male 10/15/2017 7:21 PM CDT Legal Sex Male 2:00 AM SCALE SHOOTER Gender Identity Male 10/15/2017 7:21 PM CDT Sexual Orientation Straight 10/15/2017 7: 21 PM CDT documented as of this encounter Plan of Treatment Upcoming Encounters Date Type Department Care Team (Latest Contact Info) Description 05/04/2024 10:00 AM SCALE SHOOTER Comprehensive Visit Department of Sleep Medicine in [place], [place] [address] [place] [phone] Leighton Schmitz M.D. [address] [place] [phone] Discharge Disposition: Home or Self Care documented as of this encounter Visit Diagnoses Not on filedocumented in this encounter Additional Health Concerns Assessment Noted Time PHQ-9 Depression Total Score: 2 06/11/19 18 1:22 PM SCALE SHOOTER documented as of this encounter Care Teams Director Of Enterprise Applications Relationship Specialty Start Date End Date Guillermo Marcelo M.D. [address] [facility] [place] [address] PCP - General Family Medicine 07/30/23 [facility] 09/02/23 documented as of this encounter
--- OUTSIDE RECORDS SUMMARY | 2024-03-09 10:16 | XMS_ITS | Clinical Summary ---
Author Organization [employer] [facility] Address [place], [place] [address] Care Team Providers Care Conveyor Belt Installer Name Role Phone Zeinab [facility] Primary Care Provider Allergies No known active allergies Medications Medication Sig Dispensed Refills Start Date End Date Status atorvastatin (LIPITOR) 10 mg tablet Take 10 mg by mouth at bedtime. Active multivitamins-mineral s-lutein (CENTRUM SILVER) tab tablet Take 1 Tablet by mouth at bedtime. Active acetaminophen (Tylenol Extra Strength) 500 mg tablet Take 1,000 mg by mouth every 6 hours if needed (fever). Max acetaminophen dose: 4000mg in 24 hrs. Active docusate (COLACE) 100 mg capsuleIndications:Re nal mass, right Take 1 Capsule (100 mg) by mouth 2 times daily if needed for Constipation. 30 Capsule 10/11/2023 Active polyethylene glycol (MIRALAX; GLYCOLAX) 17 g per packet packetIndications:Ile us following gastrointestinal surgery (HC) Daily in the evening as needed. 10/18/2023 Active Active Problems Problem Noted Date Diagnosed Date Postoperative ileus 10/13/2023 Fever 09/17/[address] scan, kidney 09/17/2023 Overview (09/17/2023): Irregular mass, ? malignancy Renal mass, right 09/17/2023 E. coli UTI (urinary tract infection) 09/17/2023 Acute cystitis 09/15/2023 Obstructive sleep apnea syndrome 09/19/2021 Peyronie's disease 09/19/2021 Spondylitis, ankylosing 02/07/2016 Hyperlipidemia 06/23/2008 Social History Tobacco Use Types Packs/Day Years Used Date Smoking Tobacco: Former Cigarettes S tarted: 1970 Cigars Quit: 08/2023 Social Connections Answer Date Recorded Frequency of Communication with Friends and Fami ly 0 10/16/2023 Financial Resource Strain Answer Date R ecorded Difficulty of Paying Living Expenses 3 10/16/2023 Difficulty of Paying Living Expenses Not on file 10/16/2023 Food Insecurity Answer Date Recorded Do you worry your food will run out before you are able to buy more? 1 10/16/2023 Transportation Needs Answer Date Record ed Lack of Transportation (Medical) 1 10/16/2023 Housing Stability Answer Date Recorded What is your housing situation today? 1 10/16/2023 Sex and Gender Information Value Date Recorded Sex Assigned at Not on file Gender Identity Not on file Sexual Orientation Not on file Obstetrics History Last Filed Vital Signs Vital Sign Reading Time Taken Comments Blood Pressure 107/61 10/18/2023 9:00 AM CDT Pulse 75 10/18/2023 9:00 AM CDT Temperature 36.8 ??C (98.2 ??F) 10/18/2023 9:00 AM CD T Respiratory Rate 18 10/18/2023 9:00 AM CDT Oxygen Saturation 94% 10/18/2023 9:00 AM CDT Inhaled Oxygen Concentration - - Weight 90.3 kg (199 lb) 10/13/2023 9:42 AM CDT Height 188 cm (6' 2) 10/13/2023 9:42 AM CDT Body Mass Index 25.55 10/13/2023 9:42 AM CDT Plan of Treatment Health Maintenance Due Date Last Done Comments Pneumococcal series for age 65+ (1 of 2 - PCV) 1959 Tdap 1964 Depression screening for age 12+ 1965 BMI (ht and wt on same day) for age 18+ 1971 Hepatitis C screening for age 18-79 1971 Tetanus booster 1973 Colonoscopy through age 75 1998 Lipids for age 45-75 1998 Zoster (shingles) series for age 50+ (1 of 2) 2003 Medicare Wellness for age 65+ 2018 COVID-19 vaccine series ( season) 2024 04/19/2021, 08/14/2020, 07/24/2020 Influenza for age 65+ 01/17/2024 AAA screening age 65-74 Completed 10/13/2023, 09/15 Procedures Procedure Name Priority Date/Time Associated Diagnosis Comments CT ABDOMEN PELVIS W STAT 10/13/2023 1 2:17 PM CDT from Last 3 Months or Most Recently Relevant to Health Maintenance Results * CT ABDOMEN PELVIS W (10/13/2023 12:17 PM CDT) Anatomical Region Laterality Modality Abdomen, Pelvis, AORTA, LIVER, SPLEEN Computed Tomography 10/13/2023 12:3 9 PM CDT Narrative 10/13/2023 12:39 PM CDT For Patients: ??As a result of the Cures Act, medical imaging exams and procedure reports are released immediately into your electronic medical record. ??You may view this report before your referring provider. ??If you have questions, please contact your health care provider. Indication: Suspected bowel obstruction Technique: Volumetric multidetector CT images of the abdomen and pelvis were obtained after the administration of intravenous contrast. 100 cc Omnipaque 350 low osmolar intravenous contrast Comparison: CT abdomen and pelvis September 16, 2023 Findings: There is a right basilar pleural effusion with adjacent compressive atelectasis. The liver is normal in attenuation without intrahepatic biliary ductal dilatation. The portal vein is patent. The gallbladder is unremarkable without evidence of radiopaque calculus. There is no significant common biliary ductal dilatation or abrupt cut off. The spleen is normal in enhancement and size. There is mild thickening of the gastric antrum and gastric rugal folds with moderate fluid distention. The pancreas is normal in enhancement without significant atrophy. The adrenal glands are unremarkable. Postoperative change status post right nephrectomy with minimal fluid tracking in the retroperitoneum. The left kidney is grossly preserved in attenuation and enhancement. There are dilated fluid-filled loops of mid small bowel which may represent developing ileus, obstruction may be difficult to exclude. The appendix is unremarkable. There is no significant mesenteric, retroperitoneal, or pelvic sidewall lymph nodes. The aorta is nonaneurysmal. ??There is no significant atherosclerotic disease appreciated. Evaluation of the central pelvis is limited due to beam hardening artifact from bilateral hip arthroplasties. There is moderate free fluid tracking along the bilateral pericolic gutters with moderate residual air in the dependent upper abdomen likely representing residual insufflation changes from recent surgery. Postoperative changes of the anterior abdominal wall are appreciated with redemonstration of a fat containing epigastric hernia. The lumbar vertebral body heights are grossly maintained with minimal endplate Schmorl`s defects similar to previous exam. No evidence of displaced fracture. Impression: Interval right nephrectomy with moderate residual free air and fluid tracking along the dependent pericolic gutters likely representing residual insufflation gas. Markedly dilated fluid-filled loops of mid small bowel as well as debilitated proximal colon likely represent evolving postoperative ileus changes. Postoperative changes of the anterior abdominal wall are noted. No other acute intra-abdominal abnormalities are appreciated. Findings were discussed with Dr. Pena at 12:36 p.m. October 13, [address] that all CT scans at this facility use dose modulation, iterative reconstruction, and/or weight-based dosing when appropriate to reduce radiation dose to as low as reasonably achievable. Dictated by Anthony Coulter MD @ 10/13/2023 12:39:38 PM (Electronically Signed) Procedure Note Anthony Coulter MD - 10/13/2023 For Patients: As a result of the Century Cures Act, medical imagingexams and procedure reports are released immediately into your electronicmedical record. You may view this report before your referring provider.If you have questions, please contact your health care provider. Indication: Suspected bowel obstruction Technique: Volumetric multidetector CT images of the abdomen and pelvis were obtainedafter the administration of intravenous contrast. 100 cc Omnipaque 350 low osmolar intravenous contrast Comparison: CT abdomen and pelvis September 16, 2023 Findings: There is a right basilar pleural effusion with adjacent compressiveatelectasis. The liver is normal in attenuation without intrahepatic biliary ductaldilatation. The portal vein is patent. The gallbladder is unremarkable without evidence of radiopaque calculus. There is no significant common biliary ductal dilatation or abrupt cutoff. The spleen is normal in enhancement and size. There is mild thickening of the gastric antrum and gastric rugal foldswith moderate fluid distention. The pancreas is normal in enhancement without significant atrophy. The adrenal glands are unremarkable. Postoperative change status post right nephrectomy with minimal fluidtracking in the retroperitoneum. The left kidney is grossly preserved inattenuation and enhancement. There are dilated fluid-filled loops of mid small bowel which mayrepresent developing ileus, obstruction may be difficult to exclude. The appendix is unremarkable. There is no significant mesenteric, retroperitoneal, or pelvic sidewalllymph nodes. The aorta is nonaneurysmal. There is no significant atheroscleroticdisease appreciated. Evaluation of the central pelvis is limited due to beam hardening artifactfrom bilateral hip arthroplasties. There is moderate free fluid tracking along the bilateral pericolicgutters with moderate residual air in the dependent upper abdomen likelyrepresenting residual insufflation changes from recent surgery. Postoperative changes of the anterior abdominal wall are appreciated withredemonstration of a fat containing epigastric hernia. The lumbar vertebral body heights are grossly maintained with minimalendplate Schmorl`s defects similar to previous exam. No evidence ofdisplaced fracture. Impression: Interval right nephrectomy with moderate residual free air and fluidtracking along the dependent pericolic gutters likely representingresidual insufflation gas. Markedly dilated fluid-filled loops of mid small bowel as well asdebilitated proximal colon likely represent evolving postoperative ileuschanges. Postoperative changes of the anterior abdominal wall are noted. No other acute intra-abdominal abnormalities are appreciated. Findings were discussed with Dr. Pena at 12:36 p.m. October 13, [address] all [address] scans at this facility use dose modulation,iterative reconstruction, and/or weight-based dosing when appropriate toreduce radiation dose to as low as reasonably achievable. Dictated by Anthony Coulter MD @ 10/13/2023 12:39:38 PM (Electronically Signed) Schuyler Pena MD CT from Last 3 Months or Most Recently Relevant to Health Maintenance Advance Directives * Full Code (Latest Code Status on File) Date Activated Date Inactivated Comments 10/13/2023 7:07 PM 10/18/2023 1:30 PM Question Answer Comments Code Status Discussion: Reviewed Preferences * Full Code Date Activated Date Inactivated Comments 10/09/2023 6:10 AM 10/11/2023 8:56 PM Question Answer Comments Code Status Discussion: Unable to Assess Preferences, Provider to review later * Full Code Date Activated Date Inactivated Comments 09/15/2023 3:47 PM 09/18/2023 1:52 PM Question Answer Comments Code Status Discussion: Reviewed Preferences Care Teams Conveyor Belt Installer Relationship Specialty Start Date End Date Zeinab [facility] [place] [address] [place] [address] PCP - General 10/07/23
--- OUTSIDE RECORDS SUMMARY | 2024-03-09 10:16 | XMS_ITS | Encounter Summary ---
Author Organization [facility] Address [address] [place] [address] Care Team Providers Care Ic Designer Standard Cells Name Role Phone Guillermo Marcelo M.D. Primary Care Provider [phone] Encounter Details Date Type Department Care Team (Late st Contact Info) Description 02/04/2017 Historical Ophthalmology [facility] Urban Garza M.D. [address] [address] Social History Tobacco Use Types Packs/Day Years Used Date Smoking Tobacco: Never Assessed Sex and Gender Information Value Date Recorded Sex Assigned at Male 10/15/2017 7:21 PM CDT Legal Sex Male 2:00 AM SEGMENT PRODUCER Gender Identity Male 10/15/2017 7:21 PM CDT Sexual Orientation Straight 10/15/2017 7: 21 PM CDT documented as of this encounter Progress Notes * Urban Garza M.D. - 02/04/2017 8:42 AM CDT Eye General CHIEF COMPLAINT Iridocyclitis, LEFT eye HISTORY OF PRESENT ILLNESS Reports no concern with vision or new changes. The drops are causing a little irratatation around the left eye. NSW: Doing well, no new concerns. Has been faithfully using Pred Forte QD and Cosopt BID. IMPRESSION / REPORT [...] PF). D/c'd steroidsafter 2nd episode on 02/04/2017. 04 Feb 2017 PLAN: Has been on QD Pred Acetate for past 4 months. D/c today. D/c Cosopt BID with discontinuation of Pred Forte RTC 4-6 months for follow-up with dilated exam and disc photos and OCT RNFL. Contact information provided, and instructed to call with any worsening before follow-up. Continuing plan per Dr. Nascimento. Contact using phone or patient portal. DIAGNOSIS #1 Iridocyclitis, LEFT eye #2 Ankylosing spondylitis CDM Reports - EYEGEN Id: [id number] Status: Fnl documented in this encounter Plan of Treatment Upcoming Encounters Date Type Department Care Team (Latest Contact Info) Description 05/04/2024 10:00 AM SEGMENT PRODUCER Comprehensive Visit Department of Sleep Medicine in [address] [phone] Leighton Schmitz M.D. [address] [place] [phone] Discharge Disposition: Home or Self Care documented [...] Total Score: 2 03/27/20 16 8:21 AM SEGMENT PRODUCER documented as of this encounter Care Teams Ic Designer Standard Cells Relationship Specialty Start Date End Date Guillermo Marcelo M.D. [address] [place] [address] PCP - General Family Medicine 07/30/23 [facility] 09/02/23 documented as of this encounter
--- OUTSIDE RECORDS SUMMARY | 2024-03-09 10:16 | XMS_ITS | Encounter Summary ---
Author Organization [facility] Address [address] [place] [address] Care Team Providers Care Riding Coach Name Role Phone Guillermo Marcelo M.D. Primary Care Provider Reason for Visit * Reason Onset Date Comments Appointment 11/10/2023 Encounter Details Date Type Department Care Team (Late st Contact Info) Description 11/10/2023 Clinical Communication Division of Rheumatology in [place], [place] [address] [place] [address] Jagdish Buenrostro M.D. [address] [place] [address] Appointment Social History Tobacco Use Types Packs/Day Years [...] How often do you attend chur or moravian services? More than 4 times per year 09/19/2021 Do you belong to any clubs o r organizations such as rastafari groups, unions, fraternal or athletic groups, or [...] Answer Date Recorded PHQ-2 Score 0 08/31/2023 [facility] of Occupat ional Health - Occupational Stress [...] your living situation today? I have a [facility] place to live 12/08/2022 Education Answer Date Recorded What is the highest level of school you have completed or the highest degree you have received? 12th grade 09/19/2021 Sex and Gender Information Value Date Recorded Sex Assigned at Male 10/15/2017 7:21 PM CDT Legal Sex Male 2:00 AM UNIVERSITY ADMINISTRATIVE ASSISTANT Gender Identity Male 10/15/2017 7:21 PM CDT Sexual Orientation Straight 10/15/2017 7: 21 PM CDT documented as of this encounter Plan of Treatment Upcoming Encounters Date Type Department Care Team (Latest Contact Info) Description 05/04/2024 10:00 AM UNIVERSITY ADMINISTRATIVE ASSISTANT Comprehensive Visit Department of Sleep Medicine in [place], [place] [address] [place] [phone] Leighton Schmitz M.D. [address] [place] [phone] Discharge Disposition: Home or Self Care documented as of this encounter Visit Diagnoses Not on filedocumented in this encounter Additional Health Concerns Assessment Noted Time PHQ-9 Depression Total Score: 2 06/11/19 18 1:22 PM UNIVERSITY ADMINISTRATIVE ASSISTANT documented as of this encounter Care Teams Riding Coach Relationship Specialty Start Date End Date Guillermo Marcelo [place] [address] PCP - General Family Medicine 07/30/23 [facility] 09/02/23 documented as of this encounter
--- OUTSIDE RECORDS SUMMARY | 2024-03-09 10:16 | XMS_ITS | Encounter Summary ---
Author Organization [facility] Address [address] [place] [address] Care Team Providers Care Food Processing Plant Manager Name Role Phone Guillermo Marcelo M.D. Primary Care Provider [phone] Encounter Details Date Type Department Care Team (Late st Contact Info) Description 08/18/2016 Historical Ophthalmology [facility] Urban Garza M.D. [address] [address] Social History Tobacco Use Types Packs/Day Years Used Date Smoking Tobacco: Never Assessed Sex and Gender Information Value Date Recorded Sex Assigned at Male 10/15/2017 7:21 PM CDT Legal Sex Male 2:00 AM USER INTERFACE DEVELOPER Gender Identity Male 10/15/2017 7:21 PM CDT Sexual Orientation Straight 10/15/2017 7: 21 PM CDT documented as of this encounter Progress Notes * Urban Garza M.D. - 08/18/2016 3:21 PM CDT Eye General CHIEF COMPLAINT follow up, left eye HISTORY OF PRESENT ILLNESS 61 year old male here for 10 day follow up , Iridocyclitis, LEFT eye. Blurred vision; left eye; x 1week ; improving since first noted. Patient denies ocular pain. Left eye tears a lot. NSW: Reports that symptomatic we and from a vision standpoint he is back to baseline. No new concerns with either eye today. IMPRESSION / REPORT / PLAN 28 Jan [...] (did not require Durezol with prior episode). 18 Aug 2016 Cell resolved, pressure stable today. PLAN: Inflammation is resolved. Continue Durezol titration until return. Will start TID today. Continue Cosopt BID while on Durezol. RTC on 09/03 for appt. Contact information provided, and instructed to call with any worsening before follow-up. DIAGNOSIS #1 Iridocyclitis, LEFT eye #2 Ankylosing spondylitis CDM Reports - EYEGEN Id: [id number] Status: Fnl documented in this encounter Plan of Treatment Upcoming Encounters Date Type Department Care Team (Latest Contact Info) Description 05/04/2024 10:00 AM USER INTERFACE DEVELOPER Comprehensive Visit Department of Sleep Medicine in [address] [phone] Leighton Schmitz M.D. [address] [place] [phone] Discharge Disposition: Home or Self Care documented [...] Total Score: 2 03/27/20 16 8:21 AM USER INTERFACE DEVELOPER documented as of this encounter Care Teams Food Processing Plant Manager Relationship Specialty Start Date End Date Guillermo Marcelo M.D. [address] [place] [phone] PCP - General Family Medicine 07/30/23 [facility] 09/02/23 documented as of this encounter
--- OUTSIDE RECORDS SUMMARY | 2024-03-09 10:16 | XMS_ITS | Clinical Summary ---
Author Organization [facility] Address [address] [place] [address] Phone Care Team Providers Care Dump Motor Operator Name Role Phone Guillermo Marcelo MD Primary Care Provider Allergies No known active allergies Medications Docusate Sodium (DSS) 100 MG capsule Take 100 mg by mouth 2 (two) times a day if needed 4 Active Pembrolizumab 100 MG/4ML solution Infuse 200 mg into a venous catheter 4 Active atorvastatin (LIPITOR) 10 MG tablet Take 10 mg by mouth 1 (one) time each day 4 Active acetaminophen (TYLENOL) 500 MG tablet Take 1,000 mg by mouth every 6 (six) hours if needed Active polyethylene glycol (GLYCOLAX) 17 g packet Take 17 g by mouth 1 (one) time each day if needed 4 Active LUTEIN PO Take 1 tablet by mouth in the morning. 02/18/20 24 Discontinued (Discontinue d by another clinician (does not appear on AVS)) Multiple Vitamins-Vivian als (CENTRUM SILVER ULTRA MENS PO) Take 1 tablet by mouth in the morning. 02/18/20 24 Discontinued (Discontinue d by another clinician (does not appear on AVS)) Active Problems Problem Noted Date Diagnosed Date Chronic kidney disease 01/21/2024 Encounters Date Type Department Care Team Description 03/04/2024 Office Communication [facility] [address] [place] [address] Jodi Andres RN 02/18/2024 9:00 AM CDT Office Visit [facility] [address] [address] [place] [phone] Rai Feldman MD Chronic kidney disease stage 3A (HCC) (Primary Dx); Malignant neoplasm of right kidney, except renal pelvis (HCC); Hypertension 01/25/2024 Orders [place] [facility] [place] [phone] Chronic kidney disease, not otherwise specified 01/25/2024 Documentation Only [facility] [place] [phone] No, Pcp 01/25/2024 Transcribe Orders [facility] [place] [phone] No, Pcp Chronic kidney disease, not otherwise specified (Primary Dx) 01/22/2024 Office Communication [facility] [place] [phone] No, Pcp 01/22/2024 Documentation Only [facility] [place] [phone] No, Pcp from Last 3 Months Immunizations Name Administration Dates Next Due Influenza Split High Dose Pr eservative Free IM 03/24/2022,02/26/2021,02/06/2020 Family History Medical History Relation Comments Cancer Brother Cancer Father Coronary artery disease Father Cancer Father's Brother Heart disease Father's Brother Stroke Father's Brother Cancer Father's Sister Heart disease Father's Sister Cancer Maternal Grandfather Cancer Maternal Grandmother Asthma Mother Cancer Mother Coronary artery disease Mother Dementia Mother Glaucoma Mother Stroke Mother Cancer Mother's Brother Heart disease Mother's Brother Cancer Mother's Sister Dementia Mother's Sister Dementia Paternal Grandmother Cancer Sister 1 Heart disease Sister 1 Cancer Sister 2 Cancer Sister 3 Relation Status Comments Brother Father Father's Brother Father's Sister Maternal Grandfather Maternal Grandmother Mother Mother's Brother Mother's Sister Paternal Grandfather Paternal Grandmother Sister 1 Sister 2 Sister 3 Social History Tobacco Use Types Packs/Day Years [...] on file Sexual Orientation Not on file Last Filed Vital Signs Vital Sign Reading Time Taken Comments Blood Pressure 146/86 02/18/2024 8:54 AM CDT Pulse 84 02/18/2024 8:54 AM CDT Temperature - - Respiratory Rate - - Oxygen Saturation - - Inhaled Oxygen Concentration - - Weight 91.2 kg (201 lb) 02/18/2024 8:54 AM CDT Height 188 cm (6' 2) 02/18/2024 8:54 AM CDT Body Mass Index 25.81 02/18/2024 8:54 AM CDT Plan of Treatment Upcoming Encounters Date Type Department Care Team (Late st Contact Info) Description 06/22/2024 10:40 AM DENTAL BILLING SPECIALIST Office Visit [facility] [address] [place] [phone] Rai Feldman MD [address] [place] [address] Health Maintenance Due Date Last Done Comments Colorectal Cancer Screening: Annual FOBT 2002 Colorectal Cancer Screening: Colonoscopy 2002 Colorectal Cancer Screening: Sigmoidoscopy 2002 Pneumococcal Vaccine: 65+ Years (3 of 3 - PCV) 02/05/2021 02/06/2020, 07/04/2011 Influenza Vaccine (#1) 2024 2, 02/26/2021, 02/06/2020, Additional history exists Hepatitis B Vaccine Aged Out No longe r eligible based on patient's age to complete this topic Procedures Procedure Name Priority Date/Time Associated Diagnosis Comments URINE ALBUMIN / CREATININE RATIO Routine 02/18/2024 8:30 AM CDT Chronic kidney disease stage 3A (HCC) URINALYSIS WITH MICROSCOPIC Routine 02/18/2024 8:30 AM CDT Chronic kidney disease stage 3A (HCC) CYSTATIN C WITH EGFR Routine 02/18/2024 8:30 AM CDT Chronic kidney disease stage 3A (HCC) PTH, INTACT Routine 02/18/2024 8:30 AM CDT Chronic kidney disease stage 3A (HCC) HEMOGLOBIN Routine 02/18/2024 8:30 AM CDT Chronic kidney disease stage 3A (HCC) RENAL FUNCTION PANEL Routine 02/18/2024 8:30 AM CDT Chronic kidney disease stage 3A (HCC) CBC (INCLUDES DIFF/PLT) (EXTERNAL LAB ENTRY) Routine 01/13/2024 BASIC METABOLIC PANEL (BMP) (EXTERNAL LAB ENTRY) Routine 01/13/2024 LIPID PANEL (EXTERNAL LAB ENTRY) Routine 12/23/2023 from Last 3 Months Results * (ABNORMAL) Cystatin C with Estimated Glomerular Filtration Rate (eGFR), Serum (02/18/2024 8:30 AM CDT) Cystatin C 1.87(H) 0.52 - 1.16 mg/L See order comments eGFR 33(L) > OR = 60 mL/min/1.73 m2 See order comments 02/18/2024 8:30 AM CDT 02/18/2024 8:31 AM CDT Narrative Resulting Agency Comment Performing Organization Information: ?Site ID: [place] ?Name: [email or web address] ?Address: [address] [address] ?Director: Teresa Pradhan MD us Rai Feldman MD LAB BLOOD ORDERABLES Final Resul t DALY ALBERTO See order comments [place] [address] * (ABNORMAL) Urine Albumin / Creatinine Ratio (02/18/2024 8:30 AM CDT) Creatinine, Ur 100 20 - 320 mg/dL See order comments Urine Microalbumin 7.4 See Note: mg/dL See order comments Comment: Reference Range: Reference Range Not established Microalb/Creat Ratio 74(H) <30 mg/g creat See order comments Comment: The ADA defines abnormalities in albumin excretion as follows: Albuminuria Category ?Result (mg/g creatinine) Normal to Mildly increased ?? <30 Moderately increased ? 30-299 Severely increased ? > OR = 300 The ADA recommends that at least two of three specimens collected within a 3-6 month period be abnormal before considering a patient to be within a diagnostic category. Urine (Urine, Clean Catch) 02/18/2024 8:30 AM CDT 02/18/2024 8:31 AM CDT Narrative Resulting Agency Comment Performing Organization Information: ?Site ID: ?Name: [email or web address] ?Address: [address] [place] [phone] ?Director: Kofi Dubon us Rai Feldman MD LAB URINE ORDERABLES Final Resul t DALY [employer] See order comments [place] [address] * (ABNORMAL) Urinalysis with microscopic (02/18/2024 8:30 AM CDT) Color, Urine YELLOW YELLOW See ord er comments Appearance Urine CLEAR CLEAR See order comments Specific [place], UA 1.015 1.001 - 1.035 See order comments pH Urine 5.5 5.0 - 8.0 See order comments Glucose, Ur NEGATIVE NEGATIVE See orde r comments Bilirubin, Urine NEGATIVE NEGATIVE See order comments Ketones, Urine NEGATIVE NEGATIVE See o rder comments Hemoglobin Ur Ql Strip NEGATIVE NEGATIVE See order comments Protein, Ur 1+(A) NEGATIVE See orde r comments Nitrite, Urine NEGATIVE NEGATIVE See o rder comments WBC Esterase Urine NEGATIVE NEGATIVE See order comments WBC, Urine NONE SEEN < OR = 5 /HPF See order comments RBC, Urine NONE SEEN < OR = 2 /HPF See order comments Epithelial Cells in Urine NONE SEEN < OR = 5 /HPF See order comments Bacteria NONE SEEN NONE SEEN /HPF See order comments Hyaline Casts, Urine NONE SEEN NONE SEEN /LPF See order comments Note: See order comments Comment: This urine was analyzed for the presence of WBC, RBC, bacteria, casts, and other formed elements. Only those elements seen were reported. Urine (Urine, Clean Catch) 02/18/2024 8:30 AM CDT 02/18/2024 8:31 AM CDT Narrative Resulting Agency Comment Performing Organization Information: ?Site ID: [id number] ?Name: [facility] ?Address: [address] [place] [phone] ?Director: Kofi Dubon Rai Feldman MD LAB URINE ORDERABLES Final Resul t Performing Organization Address [facility] de Phone Number [email or web address] See order comments [place] [address] * Hemoglobin (02/18/2024 8:30 AM CDT) Hemoglobin 14.8 13.2 - 17.1 g/dL See order comments Blood (Blood, Venous) 02/18/2024 8:30 AM CDT 02/18/2024 8:31 AM CDT Narrative Resulting Agency Comment Performing Organization Information: ?Site ID: CB ?Name: [facility] ?Address: [address] [place] [phone] ?Director: Kofi Dubon Rai Feldman MD LAB BLOOD ORDERABLES Final Resul t Performing Organization Address [facility] de Phone Number [employer] See order comments [place] [address] * PTH, Intact (02/18/2024 8:30 AM CDT) Parathyroid Hormone, Intact 34 16 - 77 pg/mL See order comments Comment: Interpretive Guide ?Intact PTH ? Calcium ? ------- Normal Parathyroid ?Normal ? Normal Hypoparathyroidism ?Low or Low Normal ?Low Hyperparathyroidism ?? Primary ?Normal or High ? High ?? Secondary ?High ? Normal or Low ?? Tertiary ? High ? High Non-Parathyroid ?? Hypercalcemia ?Low or Low Normal ?High Blood (Blood, Venous) 02/18/2024 8:30 AM CDT 02/18/2024 8:31 AM CDT Narrative Resulting Agency Comment Performing Organization Information: ?Site ID: CB ?Name: [facility] ?Address: [address] [place] [phone] ?Director: Kofi Dubon us Rai Feldman MD LAB BLOOD ORDERABLES Final Resul t DALY WDL See order comments [place] [address] * (ABNORMAL) Renal Function Panel (02/18/2024 8:30 AM CDT) Glucose 91 65 - 99 mg/dL See order comments Comment: ? Fasting reference interval BUN 24 7 - 25 mg/dL See order comments Creatinine 1.80(H) 0.70 - 1.28 mg/dL See order comments eGFR CKD-EPI CR 2020 40(L) > OR = 60 mL/min/1.7 3m2 See order comments BUN/Creatinine Ratio 13 6 - 22 (calc) See order comments Sodium 138 135 - 146 mmol/L See order comments Potassium 4.7 3.5 - 5.3 mmol/L See order comments Chloride 101 98 - 110 mmol/L See order comments Bicarbonate (CO2) 25 20 - 32 mmol/L See order comments Calcium 9.7 8.6 - 10.3 mg/dL See order comments Phosphorus 2.8 2.1 - 4.3 mg/dL See order comments Albumin 4.4 3.6 - 5.1 g/dL See order comments Blood (Blood, Venous) 02/18/2024 8:30 AM CDT 02/18/2024 8:31 AM CDT Narrative Resulting Agency Comment Performing Organization Information: ?Site ID: ?Name: [facility] ?Address: [address] [place] [phone] ?Director: Kofi Dubon us Rai Feldman MD LAB BLOOD ORDERABLES Final Resul t [facility] See order comments [place] [address] * (ABNORMAL) Basic Metabolic Panel (BMP) (01/13/2024) Sodium 137 mEq/L PRINT/EXTE RNA L (NON-INTERFAC ED LABS) Potassium 4.3 mEq/L PRINT/EXTE RNA L (NON-INTERFAC ED LABS) Chloride 104.0 PRINT/EXTE RNA L (NON-INTERFAC ED LABS) Carbon Dioxide 25.0 mmol/L PRINT /EXTERNA L (NON-INTERFAC ED LABS) Calcium 8.8 mg/dL PRINT/EXTE RNA L (NON-INTERFAC ED LABS) BUN 25.0(H) mg/dL PRINT/EXTE RNA L (NON-INTERFAC ED LABS) Creatinine 1.5(H) mg/dL PRINT/EXT DUNCAN L (NON-INTERFAC ED LABS) Glucose 95.50 mg/dL PRINT/EXTE RNA L (NON-INTERFAC ED LABS) eGFR 45.80(L) PRINT/EXTE RNA L (NON-INTERFAC ED LABS) Anion Gap 8.00 PRINT/EXTE RNA L (NON-INTERFAC ED LABS) 01/13/2024 Historical Provider MD LAB BLOOD ORDERABLES Gricelda l Result Performing Organization Address [facility]/ZIP Co de Phone Number PRINT/EXTERNAL (NON-INTERFACED LABS) * (ABNORMAL) CBC (Includes Diff/Plt) (External Lab) (01/13/2024) WBC 3.02(L) K/uL PRINT/EXTE RNA L (NON-INTERFAC ED LABS) Red Blood Cell Count 4.46 PRINT/EXTERNA L (NON-INTERFAC ED LABS) Hemoglobin 14.12 g/dL PRINT/EXT DUNCAN L (NON-INTERFAC ED LABS) Hematocrit 38.50 % PRINT/EXT DUNCAN L (NON-INTERFAC ED LABS) MCV 86.40 PRINT/EXTE RNA L (NON-INTERFAC ED LABS) MCH 31.70 PRINT/EXTE RNA L (NON-INTERFAC ED LABS) MCHC 36.70(H) PRINT/EXTE RNA L (NON-INTERFAC ED LABS) RDW 13.20 PRINT/EXTE RNA L (NON-INTERFAC ED LABS) Platelet Count 143.20 PRINT /EXTERNA L (NON-INTERFAC ED LABS) MPV 10.08 PRINT/EXTE RNA L (NON-INTERFAC ED LABS) Blood 01/13/2024 Historical Provider MD LAB BLOOD ORDERABLES Edit ed Result - Final Performing Organization Address City/[facility]/ZIP Co de Phone Number PRINT/EXTERNAL (NON-INTERFACED LABS) * Lipid Panel (12/23/2023) Cholesterol, Total 162 P RINT/EXTERNA L (NON-INTERFAC ED LABS) Triglycerides 81 PRINT/ EXTERNA L (NON-INTERFAC ED LABS) HDL 45 mg/dL PRINT/EXTE RNA L (NON-INTERFAC ED LABS) LDL-Calculated 102 PRINT /EXTERNA L (NON-INTERFAC ED LABS) Non HDL Cholesterol 117 PRINT/EXTERNA L (NON-INTERFAC ED LABS) Blood 12/23/2023 us Historical Provider LAB BLOOD ORDERABLES Gricelda l Result PRINT/EXTERNAL (NON-INTERFACED LABS) from Last 3 Months Insurance MEDICARE [facility] Care Teams Dump Motor Operator Relationship Specialty Start Date End Date Guillermo Marcelo MD [address] [place] [phone] PCP - General Family Medicine 01/29/24
--- OUTSIDE RECORDS SUMMARY | 2024-03-09 10:16 | XMS_ITS | Encounter Summary ---
Author Organization [facility] Address [address] [place] [address] Care Team Providers Care Boiler Erector Name Role Phone Guillermo Marcelo M.D. Primary Care Provider Encounter Details Date Type Department Care Team (Late st Contact Info) Description 02/20/2016 Historical Ophthalmology RST O[facility] Urban Garza M.D. [address] [address] Social History Tobacco Use Types Packs/Day Years Used Date Smoking Tobacco: Never Assessed Sex and Gender Information Value Date Recorded Sex Assigned at Male 10/15/2017 7:21 PM CDT Legal Sex Male 2:00 AM CRISIS MENTAL HEALTH THERAPIST Gender Identity Male 10/15/2017 7:21 PM CDT Sexual Orientation Straight 10/15/2017 7: 21 PM CDT documented as of this encounter Progress Notes * Urban Garza M.D. - 02/20/2016 12:25 PM CDT Eye General CHIEF COMPLAINT Follow up on left eye HISTORY OF PRESENT ILLNESS Patient is here for a follow up on his left eye. Patient states that his vision has been stable since his last visit. Patient denies ocular pain. Patient denies any floaters or flashes. Patient denies any new symptoms. NSW: Feels that the eyes are doing well today. Stopped the dilating drops, has been using PF about 6-7 times/day. He did not discontinue the tobradex ointment and has still been using it every evening. IMPRESSION / REPORT / PLAN 28 Jan [...] Pressures stable. - Continued improvement on 02/06, 02/19. PLAN 02/20/2016: - Discontinue TobraDex ointment. - Continue PF at 6 times per day, switch to five times per day on 02/26 (switch day Thursday). - Follow-up on Thursday, 03/05. Instructed to call if having any more redness in the eye, any worsening of photophobia or worsening of vision. - All questions answered. DIAGNOSIS #1 Iridocyclitis, LEFT eye #2 Ankylosing spondylitis CDM Reports - EYEGEN Id: [id number] Status: Fnl documented in this encounter Plan of Treatment Upcoming Encounters Date Type Department Care Team (Latest Contact Info) Description 05/04/2024 10:00 AM CRISIS MENTAL HEALTH THERAPIST Comprehensive Visit Department of Sleep Medicine in [address] [phone] Leighton Schmitz M.D. [address] [place] [phone] Discharge Disposition: Home or Self Care documented [...] documented as of this encounter Care Teams Boiler Erector Relationship Specialty Start Date End Date Guillermo Marcelo M.D. [address] [place] [phone] PCP - General Family Medicine 07/30/23 [facility] 09/02/23 documented as of this encounter
--- OUTSIDE RECORDS SUMMARY | 2024-03-09 10:16 | XMS_ITS | Encounter Summary ---
Author Organization [facility] Address [address] [place] [address] Care Team Providers Care Senior Director Insight Name Role Phone Guillermo Marcelo M.D. Primary Care Provider Encounter Details Date Type Department Care Team (Late st Contact Info) Description 08/08/2016 Historical Ophthalmology RST [facility] Urban Garza M.D. [address] [address] Social History Tobacco Use Types Packs/Day Years Used Date Smoking Tobacco: Never Assessed Sex and Gender Information Value Date Recorded Sex Assigned at Male 10/15/2017 7:21 PM CDT Legal Sex Male 2:00 AM LOGISTICS PROJECT MANAGER Gender Identity Male 10/15/2017 7:21 PM CDT Sexual Orientation Straight 10/15/2017 7: 21 PM CDT documented as of this encounter Progress Notes * Urban Garza M.D. - 08/08/2016 8:47 AM CDT Eye General CHIEF COMPLAINT Left eye follow up HISTORY OF PRESENT ILLNESS Patient is here following up on the left eye. He notes blurry vision in the left eye has gotten better; The aches are gone; decreased redness noted;he notes that his light sensitivity is still the same. NSW: Reports that vision seems unchanged in the left eye since his prior visit. IMPRESSION / REPORT / PLAN 28 Jan [...] not require Durezol with prior episode). 08 Aug 2016 Cell resolving, pressure low today. PLAN: Inflammation is improved, cell is less but he still has some d-folds. Pressure much improved today on Cosopt and Brimonidine. Continue Durezol 4x/day until return. Discontinue Cyclo. RTC on 08/18 late PM for appt. Contact information provided, and instructed to call with any worsening before follow-up. DIAGNOSIS #1 Iridocyclitis, LEFT eye #2 Ankylosing spondylitis CDM Reports - EYEGEN Id: [id number] Status: Fnl documented in this encounter Plan of Treatment Upcoming Encounters Date Type Department Care Team (Latest Contact Info) Description 05/04/2024 10:00 AM LOGISTICS PROJECT MANAGER Comprehensive Visit Department of Sleep Medicine in [address] [phone] Leighton Schmitz M.D. [address] [place] [phone] Discharge Disposition: Home or Self Care documented [...] Total Score: 2 03/27/20 16 8:21 AM LOGISTICS PROJECT MANAGER documented as of this encounter Care Teams Senior Director Insight Relationship Specialty Start Date End Date Guillermo Marcelo M.D. [address] [facility] [place] [phone] PCP - General Family Medicine 07/30/23 [facility] 09/02/23 documented as of this encounter
--- OUTSIDE RECORDS SUMMARY | 2024-03-09 10:16 | XMS_ITS | Encounter Summary ---
Author Organization [facility] Address [address] [place] [address] Care Team Providers Care Cloth Printing Inspector Name Role Phone Guillermo Marcelo M.D. Primary Care Provider Encounter Details Date Type Department Care Team (Late st Contact Info) Description 04/29/2016 Historical Ophthalmology RST O[facility] Urban Garza M.D. [address] [address] Social History Tobacco Use Types Packs/Day Years Used Date Smoking Tobacco: Never Assessed Sex and Gender Information Value Date Recorded Sex Assigned at Male 10/15/2017 7:21 PM CDT Legal Sex Male 2:00 AM RECEPTIONIST AIRLINE LOUNGE Gender Identity Male 10/15/2017 7:21 PM CDT Sexual Orientation Straight 10/15/2017 7: 21 PM CDT documented as of this encounter Progress Notes * Urban Garza M.D. - 04/29/2016 9:21 AM CST Eye General CHIEF COMPLAINT follow up for iridocyclitis left eye HISTORY OF PRESENT ILLNESS Patient states everything is going good. Believes his vision is good. Denies any ocular pain, flashing lights, floaters, diplopia or headaches. No other eye concerns or symptoms at this time. NSW: He reports he is doing well today, and his vision has been quite stable. He has no new concerns or complaints. IMPRESSION / REPORT / PLAN 28 Jan [...] on 02/06, remained quiet on 02/19, 03/05, 03/25, 04/29 (off all drops). PLAN 03/25/2016: - Offered follow-up in 1 month, he would like to defer and call in the event of any symptoms of a recurrence. We discussed a return visit right away in the event of redness in the eye, any worsening of photophobia or worsening of vision. We also discussed not self-initiating therapy with steroid drops if he has symptoms, as it would be possible that a different etiology would be the cause of his symptoms, and that we should see him before starting therapy for a good baseline exam. - All questions answered. DIAGNOSIS #1 Iridocyclitis, LEFT eye #2 Ankylosing spondylitis CDM Reports - EYEGEN Id: [id number] Status: Fnl documented in this encounter Plan of Treatment Upcoming Encounters Date Type Department Care Team (Latest Contact Info) Description 05/04/2024 10:00 AM RECEPTIONIST AIRLINE LOUNGE Comprehensive Visit Department of Sleep Medicine in [address] [phone] Leighton Schmitz M.D. [address] [place] [phone] Discharge Disposition: Home or Self Care documented [...] Total Score: 2 03/27/20 16 8:21 AM RECEPTIONIST AIRLINE LOUNGE documented as of this encounter Care Teams Cloth Printing Inspector Relationship Specialty Start Date End Date Guillermo Marcelo M.D. [address] [place] [address] PCP - General Family Medicine 07/30/23 [facility] 09/02/23 documented as of this encounter
--- OUTSIDE RECORDS SUMMARY | 2024-03-09 10:16 | XMS_ITS | Encounter Summary ---
Author Organization [facility] Address [address] [place] [address] Care Team Providers Care Game Warden Name Role Phone Guillermo Marcelo M.D. Primary Care Provider [phone] Encounter Details Date Type Department Care Team (Late st Contact Info) Description 09/16/2013 Historical Ophthalmology RST OPH Jeff Winter O.D. [address] [place] [address] Social History Tobacco Use Types Packs/Day Years Used Date Smoking Tobacco: Never Assessed Sex and Gender Information Value Date Recorded Sex Assigned at Male 10/15/2017 7:21 PM CDT Legal Sex Male 2:00 AM WEB OPERATIONS LEAD Gender Identity Male 10/15/2017 7:21 PM CDT Sexual Orientation Straight 10/15/2017 7: 21 PM CDT documented as of this encounter Progress Notes * Jeff Winter O.D. - 09/16/2013 9:04 AM CDT Eye General CHIEF COMPLAINT Eye check up HISTORY OF PRESENT ILLNESS Patient states he is here for the health of his eyes. Patient wears OTC readers;no eye pain;no headaches;no flashes or floaters; IMPRESSION / REPORT / PLAN Consult requested by: Ziyad Babcock MD : [id number] #[id number] Refractive error (presbyopia). Plan: [id number] readers satisfactory. DIAGNOSIS #1 Refractive error (presbyopia). CDM Reports - EYEGEN Id: [id number] Status: Fnl documented in this encounter Plan of Treatment Upcoming Encounters Date Type Department Care Team (Latest Contact Info) Description 05/04/2024 10:00 AM WEB OPERATIONS LEAD Comprehensive Visit Department of Sleep Medicine in [place], [place] [address] [place] [phone] Leighton Schmitz M.D. [address] [place] [phone] Discharge Disposition: Home or Self Care documented [...] documented as of this encounter Care Teams Game Warden Relationship Specialty Start Date End Date Guillermo Marcelo M.D. [address] [place] [address] PCP - General Family Medicine 07/30/23 [facility] 09/02/23 documented as of this encounter
--- OUTSIDE RECORDS SUMMARY | 2024-03-09 10:17 | XMS_ITS | Encounter Summary ---
Author Organization [facility] Address [address] [place] [address] Care Team Providers Care Human Service Technician Name Role Phone Unavailable Primary Care Provider Unavailabl e Encounter Details Date Type Department Care Team (Late st Contact Info) Description 01/22/2024 Office Communication [facility] [address] [place] [phone] No, Pcp Social History Tobacco Use Types Packs/Day Years Used Date Smoking Tobacco: Never Assessed Sex and Gender Information Value Date Recorded Sex Assigned at Not on file Legal Sex Male 3:09 PM EDT Gender Identity Not on file Sexual Orientation Not on file documented as of this encounter Miscellaneous Notes * Telephone Encounter - Milli Antonio - 01/22/2024 2:13 PM CDT Referral received w/no records. Records requested, when received, referral will be processed. documented in this encounter Plan of Treatment Upcoming Encounters Date Type Department Care Team (Late st Contact Info) Description 06/22/2024 10:40 AM SENIOR SPECIALIST Office Visit [facility] [address] [place] [phone] Rai Feldman MD [address] [place], [place] [address] documented as of this encounter Visit Diagnoses Not on filedocumented in this encounter
--- OUTSIDE RECORDS SUMMARY | 2024-03-09 10:17 | XMS_ITS | Encounter Summary ---
Author Organization [facility] Address [address] [facility] [place] [facility] [place] [address] Care Team Providers Care Steel Erector Apprentice Name Role Phone Guillermo Marcelo MD Primary Care Provider [phone] Reason for Visit * Reason Comments CKD New Patient * Consultation (Routine) - Closed Specialty Diagnoses / Procedures Referred By Contac t Referred To Contact Nephrology Diagnoses Chronic kidney disease, not otherwise specified Ziyad Barakat MD PhD [facility] [place] [address] Phone: tel: fax: Rai Feldman MD [address] [employer] [facility] [address] [place] [address] Phone: tel: fax: Referral ID Status Reason Start Date Expiration Date V isits Requested Visits Authorized [id number] Closed Specialty Services Required 01/25/2024 01/24/2025 1 1 Encounter Details Date Type Department Care Team (Late st Contact Info) Description 02/18/2024 9:00 AM CDT Office Visit [facility] [address] [place] [phone] Rai Feldman MD [address] [employer] [facility] [address] [place], [place] [id number] Chronic kidney disease stage 3A (HCC) (Primary Dx); Malignant neoplasm of right kidney, except renal pelvis (HCC); Hypertension Social History Tobacco Use Types Packs/Day Years [...] on file documented as of this encounter Last Filed Vital Signs Vital Sign Reading [...] Mass Index 25.81 02/18/2024 8:54 AM CDT documented in this encounter Patient Instructions * Patient Instructions* Beatriz Teran - 02/18/2024 9:00 AM CDT Images from the original note were not included. Same medications Labs and urine today. We will contact you with the results Blood pressure log for 2 wks and send me the readings. Fax number is [phone] or [facility] with labs done 1 week prior. Lab orders will be faxed to Katheryn page. The clinic will contact you to schedule this follow up visit UNDERSTANDING YOUR BLOOD PRESSURE & LAB RESULTS People who develop chronic kidney disease may have some or all of the following tests. This sheet is to help you understand the results: Blood Pressure: Achieving the blood pressure goals identified by your kidney doctor is very important in slowing the progression of your kidney disease. Always take blood pressure medications as directed. Other steps to follow may include cutting down on the amount of salt in your diet, losing excess weight and following a regular exercise program. Serum Creatinine: Creatinine is a waste product in your blood that comes from muscle activity. It is normally removed from your blood by your kidneys, but when kidney function slows down, the creatinine level rises. (Lab Normal Range: Male: 0.5--1.3, Female: 0.4--1.1) BUN (Blood Urea Nitrogen): BUN is a waste product in your blood that is normally removed from your body by the kidneys. When your kidney function slows down or if you become dehydrated, the BUN levels rise. (Lab Normal Range: 7--24) Glomerular Filtration Rate (GFR): Your GFR tells how much kidney function you have. It is calculated from your blood level of creatinine. (Lab Normal Range: Equal to or greater than 60) Potassium: Potassium is a mineral in your blood that helps your heart and muscles work properly, too much or too little potassium can be harmful to your heart and other muscles in your body. Potassium levels can be controlled by careful dietary restrictions. Our dietitian can help plan your diet toget the right amount of potassium. (Lab Normal Range: 3.5--5.1) Phosphorus: Failing kidneys do not remove phosphorus efficiently. A high phosphorus level can lead to weak bones. If your level is too high, your kidney doctor may ask you to reduce your intake of foods that are high in phosphorus and take medications called phosphate binders with your meals and snacks. (Lab Normal Range: 2.5--4.9) Calcium: Calcium is a mineral that is important for strong bones. To help balance the amount of calcium in your blood, your kidney doctor may ask you to take calcium supplements and Vitamin D. Take only the supplements and medications recommended by your kidney doctor. (Lab Normal Range: 8.5--10.1) Page 2 of 2 Parathyroid Hormone (PTH): This hormone is a marker for your bone health. High levels may result from a poor balance of calcium and phosphorus in your body that can cause bone disease. Your kidney doctor may order a special prescription form of Vitamin D to help lower your PTH. (Lab Normal Range: 14--72) Hemoglobin: Hemoglobin is the part of red blood cells that carries oxygen from your lungs to all parts of your body. A low hemoglobin level indicates too few red blood cells, which is called anemia. Anemia can make you feel tired or have a low energy level. If you have anemia, you may need treatment with iron supplements and a hormone called erythropoietin (EPO). Your hemoglobin is monitored carefully to ensure the correct doses of iron and EPO is prescribed. (Lab Normal Range: Males: 14-18, Females: 12-16) TSAT and Serum Ferritin: Your TSAT (% iron saturation) and serum ferritin are measures of iron in your body. Abnormal values may indicate iron deficiency. Your kidney doctor may recommend iron supplements when needed. (Lab Normal Range: TSAT: 15--50; Serum Ferritin: 8--388) Cholesterol tests: Patients with kidney disease have an increased risk for cardiovascular disease (heart disease), therefore it is important that your cholesterol is well controlled. Dietary changes,exercise, and cholesterol lowering medication can lower cholesterol levels and decrease cardiovascular risk. Total Cholesterol: Cholesterol is a fat-like substance found in your blood. A high cholesterol level may increase your chance of having heart and circulation problems. For many patients, the target level is less than 200. HDL Cholesterol: HDL is a type of 'good' cholesterol that protects your heart. For many patients, the target level for HDL is above 40. LDL Cholesterol: LDL is a type of 'bad' cholesterol. A high LDL level may increase your chance of having heart and circulation problems. For many patients, a good level for LDL cholesterol is below 100, but some patients may have an even lower goal. Triglyceride: Triglyceride is a type of fat found in your body. A high triglyceride level along with high levels of total and LDL cholesterol may increase your chance of heart and circulation problems. For many patients, the target level is less than 150. HgbA1c: The HgbA1c is a marker of diabetes control for the past two to three months. Adequate diabetes control has been proven to slow the progression of kidney failure. (Lab Normal Range: Less than or equal to 5.6 if average glucose is less than or equal to 114.) [facility] Home Blood Pressure Diary Name: Fredo Mcdonald : 1955 DATE TIME AM BP PULSE TIME PM BP PULSE COMMENTS: Weight up/down, how you feel, etc At [facility], our goal is to work with you to provide the highest quality of care throughout your journey with kidney disease. In addition to yourself, your healthcare team includes Nephrologists, Advanced Practice Providers (APPs), Registered Nurses, Medical Assistants, and may include a Registered Dietitian who all work together to ensure your kidney care is well managed. How YOU help your healthcare team: Know your medications Keep an accurate list that includes the medication name, what dose you take, how frequently you take the medication and bring your bottles or list to every appointment! Complete your lab work as recommended by your provider This tells us how your kidneys are functioning, and often both blood and urine labs are needed It is important to complete pre-visit labs 1-2 weeks before your next appointment Recheck labs are also just as important and often necessary after a change in your medications or over a certain period of time to ensure your kidney function remains stable Monitor and keep track of your Blood Pressure The recommended goal is to keep your blood pressure less than 130/80 to help slow/delay the progression of kidney disease. Take blood pressure medications as directed. Other tips for healthy kidneys: If you smoke, strongly consider quitting Focus on good nutrition, exercise, and stay hydrated! If diabetic, monitor and maintain your blood sugar levels - aim blood sugar between 80 to 130, and a hemoglobin A1C of 7.0 or less Have your cholesterol checked. If interested, ask your provider for a referral to see our Renal Dietitian Avoid certain medications Examples: NSAIDS, certain cold medications that include ephedrine, phenylpropanolamine or pseudoephedrine (Sudafed, Actifed). When to call [facility]: Any new symptoms: Consistently elevated blood pressure greater than 140/90 with or without dizziness Increased leg swelling or unexplained weight gain greater than 3 to 5 pounds If another provider recommends you complete a CT scan or MRI with IV contrast. Let that provider know you follow nephrology and call us. It may be recommended that you complete the scan without contrast dye. When to go to the Emergency Room: If you get dehydrated, or have excessive nausea, headache or vomiting, you may need to get IV fluids. If you cannot pass your urine completely (empty your bladder) as this may be a sign of an Acute Injury to your Kidney. We are all here to provide you with the best renal care, and want you to feel free to call us when you have questions or concerns. Please refer to the address and telephone number listed on your After Visit Summary and choose the option to speak to your medical team. Thank you, From all of us at [facility] documented in this encounter Progress Notes * Rai Feldman MD - 02/18/2024 9:00 AM CDT Images from the original note were not included. Patient: Fredo Mcdonald Date of : 1955, 68 y.o. male Chart: [id number] PCP: Guillermo Marcelo MD Date of Service: 02/18/2024 Chief Complaint: I was asked by Ziyad Barakat to evaluate Fredo Mcdonald for CKD after R nephrectomy for RCC 10/09/23. History of Present Illness: Fredo is a pleasant 68-year-old male who is kindly referred to me by Dr. Ziyad Barakat to evaluate CKD with now a solitary left kidney. Please note that his daughter, Rossy Hawley [facility] see me specifically. He had a bad urinary tract infection in August which led to a CT scan which diagnosed an asymptomatic large right renal mass which ended up being a renal cell carcinoma. He ultimately underwent a right ugashik nephrectomy and simultaneous umbilical hernia repair by Dr. Ziyad Barakat in September 2023 at [facility]. Nephrology was not consulted on him during that hospitalization.He did have what he describes as significant low blood pressure, relook surgery with a bleeder that was corrected. He ended up staying at [facility] for about 5 days but no residual complications. 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 His creatinine on October 23, 2023 was 1.48. Bumped up to 1.75 on November 18, 2023 but most recently was back to 1.5 on January 13, 2024. Prior to his nephrectomy his creatinine was 1.17 on October 08, 2023. He denies any history of kidney stones. He just had the 1 bad UTI which in retrospect was a blessing because it led to the renal cell carcinoma diagnosis and treatment thereof. No family history of CKD. He denies BPH symptoms. He does have a long history of ankylosing spondylitis since age 20 and had been using ibuprofen about 4 times per month and asking whether he can use this from time to time. He is on an every 3-week chemoinfusion with pembrolizumab and tolerating it well. Today he feels well. His blood pressure is a little bit above his normal baseline today and is 146/86 but he will check some readings at home for us keep a log and send me readings in a few weeks. We talked about the importance of blood pressure control now that he has a solitary kidney and CKD. We had a long discussion today regarding his current estimated GFR, the fact that he has a solitarykidney and what we are going to need to monitor, treat, and be aggressive with risk factor modification and a sense of a solitary kidney such that he would never need dialysis in his lifetime. His current estimated GFR is about where we would have predicted it to be status post loss of 50% of his nephron mass back on October 09, 2023. Assessment & Plan 1. Chronic kidney disease stage IIIa with estimated GFR of 46 mL/min when his creatinine was 1.5 on01/13/2024. This is due to reduced nephron mass status post elective right nephrectomy October 09, 2023 as noted above for renal cell carcinoma. Today we will be updating labs including renal function panel, checking a Cystatin C estimated GFR since his true GFR may be better since he is tall and muscular. Will evaluate for any proteinuria and if he does have any will discuss addition of an SGLT2 inhibitor and/or RAAS blockade. I will be following CKD related comorbid labs and disease states and I recommend longitudinal care with us on a regular basis determined by GFR. 2. Hypertension. Not currently on medications, blood pressure today is above our target however would like him to check home readings in the next 2 weeks and send us the report. Goal blood pressure 130s over 80s. If he is above goal we will likely start with low-dose ARB and possibly SGLT2 inhibitor if he has any proteinuria. Follow low-sodium diet. 3. Renal cell carcinoma. Status post surgical cure and [facility] and they are doing routine CT imaging and ideally noncontrast to avoid nephrotoxicity. 4. Bone health. Will check intact PTH 25-hydroxy vitamin D calcium and phosphorus since he does have stage IIIa CKD. Return in about 6 months (around 08/18/2024) for RecheckFrancia. Rai Feldman MD [facility], Active Problems Patient Active Problem List Diagnosis Date Noted Chronic kidney disease 01/21/2024 Review of Systems Comprehensive ROS was negative other than above and in HPI. Physical Exam Vitals: 02/18/24 0854 BP: 146/86 BP Location: Left upper arm Pulse: 84 Weight: 201 lb (91.2 kg) Height: 6' 2 (1.88 m) CONSTITUTIONAL: calm and comfortable. Tall and muscular for his age. EYES: pupils equal, sclerae not icteric, lids and conjunctivae normal. RESPIRATORY: No respiratory distress, normal effort. CARDIOVASCULAR: No leg edema. PSYCHIATRIC: Alert and oriented x 3, not depressed. NEUROLOGIC: Cranial nerves II-XII grossly intact, sensation to light touch intact. MUSCULOSKELETAL: Four extremities with no contractures. SKIN: No rash. Outpatient Medications Marked as Taking for the 02/18/24 encounter (Office Visit) with Rai Feldman MD Medication Sig Dispense Refill acetaminophen (TYLENOL) 500 MG tablet Take 1,000 mg by mouth every 6 (six) hours if needed atorvastatin (LIPITOR) 10 MG tablet Take 10 mg by mouth 1 (one) time each day Docusate Sodium (DSS) 100 MG capsule Take 100 mg by mouth 2 (two) times a day if needed [START ON 02/21/2024] Pembrolizumab 100 MG/4ML solution Infuse 200 mg into a venous catheter polyethylene glycol (GLYCOLAX) 17 g packet Take 17 g by mouth 1 (one) time each day if needed Medication orders: No orders of the defined types were placed in this encounter. Orders Placed This Encounter Procedures Basic Metabolic Panel (BMP) This order was created through External Result Entry Lipid Panel This order was created through External Result Entry Basic Metabolic Panel (BMP) This order was created through External Result Entry Urinalysis This order was created through External Result Entry Renal Function Panel Order Specific Question: [facility] Has the patient fasted? Answer: No Hemoglobin PTH, Intact Cystatin C with Estimated Glomerular Filtration Rate (eGFR), Serum Urinalysis with microscopic Order Specific Question: Microscopic Required Answer: Yes Order Specific Question: Culture if Indicated? Answer: No Urine Albumin / Creatinine Ratio ALT EXT LABS This order was created through External Result Entry CBC (Includes Diff/Plt) (External Lab) This order was created through External Result Entry ALT EXT LABS This order was created through External Result Entry No Known Allergies Chemistry and Bone Mineral Lab Units 01/13/24 0000 11/18/23 0000 10/23/23 0000 SODIUM mEq/L 137 -- 138 POTASSIUM mEq/L 4.3 -- 4.9 CHLORIDE 104.0 -- 102 CO2 mmol/L 25.0 -- 27 CALCIUM mg/dL 8.8 -- 9.1 GLUCOSE mg/dL 95.50 -- 93 BUN mg/dL 25.0* -- 25* CREATININE mg/dL 1.5* 1.75* 1.48* EGFR 45.80* 41* 51* CBC and Iron Studies Lab Units 01/13/24 0000 WBC AUTO K/uL 3.02* HEMATOCRIT % 38.50 HEMOGLOBIN g/dL 14.12 MCV 86.40 PLATELETS AUTO 143.20 Urine Lab Units 09/13/23 0000 URINE SPECIFIC GRAVITY >=1.030 GLUCOSE UR Negative BLOOD, URINE Moderate ! RBC UR 3-10 ! LEUKOCYTE ESTERASE UA (EXTERNAL LAB ENTRY) Moderate ! WBC UR 51-100 ! NITRITE U Positive ! PROTEIN UR 30 ! BILIRUBIN U Negative UROBILINOGEN U 0.2 I have performed a complete review of pertinent lab results 02/18/2024 The following portions of the patient's chart were reviewed in this encounter and updated as appropriate: Tobacco Allergies Meds Med Hx Surg Hx Fam Hx Past Medical History: Diagnosis Date Anemia Other and unspecified hyperlipidemia Other malignant neoplasm of unspecified site (HCC) Sleep apnea Past Surgical History: Procedure Laterality Date ABDOMINAL SURGERY HERNIA REPAIR 10/09/2023 NEPHRECTOMY 10/09/2023 total Social History Tobacco Use Smoking status: Former Types: Cigars Smokeless tobacco: Never Tobacco comments: Started smoking 1970 Quit 08/31/23 Substance Use Topics Alcohol use: Yes Alcohol/week: 1.0 standard drink of alcohol Types: 1 Cans of beer per week Comment: weekly Drug use: Never Family History Problem Relation Age of Onset Cancer Mother Stroke Mother Dementia Mother Coronary artery disease Mother Asthma Mother Glaucoma Mother Cancer Father Coronary artery disease Father Heart disease Sister Cancer Sister Cancer Sister Cancer Sister Cancer Brother Dementia Mother's Sister Cancer Mother's Sister Heart disease Mother's Brother Cancer Mother's Brother Heart disease Father's Sister Cancer Father's Sister Heart disease Father's Brother Stroke Father's Brother Cancer Father's Brother Cancer Maternal Grandmother Cancer Maternal Grandfather Dementia Paternal Grandmother documented in this encounter Plan of Treatment Upcoming Encounters Date Type Department Care Team (Late st Contact Info) Description 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 Office Visit [facility] [address] [place] [phone] Rai Feldman MD [address] [place] [address] documented as of this encounter Procedures Procedure Name Priority Date/Time Associated Diagnosis Comments CYSTATIN C WITH EGFR Routine 02/18/2024 8:30 AM CDT Chronic kidney disease stage 3A (HCC) URINE ALBUMIN / CREATININE RATIO Routine 02/18/2024 [...] CDT Chronic kidney disease stage 3A (HCC) BASIC METABOLIC PANEL (BMP) (EXTERNAL LAB ENTRY) Routine 01/13/2024 CBC (INCLUDES DIFF/PLT) (EXTERNAL LAB ENTRY) Routine 01/13/2024 LIPID PANEL (EXTERNAL LAB ENTRY) Routine 12/23/2023 ALT EXT LABS Routine 11/18/2023 BASIC METABOLIC PANEL (BMP) (EXTERNAL LAB ENTRY) Routine 10/23/2023 URINALYSIS (EXT LAB ENTRY) Routine 09/13/2023 ALT EXT LABS Routine 06/11/2011 documented in this encounter Results * (ABNORMAL) Urine Albumin / Creatinine Ratio [...] Performing Organization Information: ?Site ID: [id number] ?Name: [employer] ?Address: [address] [place] [phone] ?Director: Kofi Dubon us Rai Feldman MD LAB URINE ORDERABLES Final Resul t [facility] See order comments [place] [address] * (ABNORMAL) Urinalysis with microscopic (02/18/2024 8:30 AM CDT) Color, Urine YELLOW YELLOW See ord er comments Appearance Urine CLEAR CLEAR See order comments Specific [place], UA 1.015 1.001 - 1.035 See order [...] Comment Performing Organization Information: ?Site ID: ?Name: [employer] ?Address: [address] [place] [phone] ?Director: Kofi Dubon us Rai Feldman MD LAB URINE ORDERABLES Final Resul t [facility] See order comments [place] [address] * (ABNORMAL) Cystatin C with Estimated Glomerular Filtration Rate (eGFR), Serum (02/18/2024 8:30 AM CDT) Cystatin C 1.87(H) 0.52 - 1.16 mg/L See order comments eGFR 33(L) > OR = 60 mL/min/1.73 m2 See order comments 02/18/2024 8:30 AM CDT 02/18/2024 8:31 AM CDT Narrative Resulting Agency Comment Performing Organization Information: ?Site ID: [id number] ?Name: [employer] ?Address: [address] [address] ?Director: eTresa Pradhan MD us Rai Feldman MD LAB BLOOD ORDERABLES Final Resul t [facility] See order comments [place] [address] * PTH, Intact (02/18/2024 8:30 AM CDT) [...] Performing Organization Information: ?Site ID: [id number] ?Name: [facility] ?Address: [address] [place] [address] [place] [address] ?Director: Kofi Dubon Rai Feldman MD LAB BLOOD ORDERABLES Final Resul t Performing Organization Address [facility] de Phone Number [email or web address] See order comments [place] [address] * Hemoglobin (02/18/2024 8:30 AM CDT) Hemoglobin 14.8 13.2 - 17.1 g/dL See order comments Blood (Blood, Venous) 02/18/2024 8:30 AM CDT 02/18/2024 8:31 AM CDT Narrative Resulting Agency Comment Performing Organization Information: ?Site ID: [id number] ?Name: [employer] [facility] ?Address: [address] [place] [phone] ?Director: Kofi Dubon Rai Feldman MD LAB BLOOD ORDERABLES Final Resul t Performing Organization Address [facility] de Phone Number [email or web address] See order comments [place] [address] * (ABNORMAL) Renal Function Panel (02/18/2024 8:30 [...] Performing Organization Information: ?Site ID: [id number] ?Name: [facility] ?Address: [address] [place] [address] [place] [address] ?Director: Kofi Dubon Rai Feldman MD LAB BLOOD ORDERABLES Final Resul t [facility] See order comments [place] [address] * (ABNORMAL) Basic Metabolic Panel (BMP) (01/13/2024) [...] PRINT/EXTE RNA L (NON-INTERFAC ED LABS) 01/13/2024 us Elba Provider LAB BLOOD ORDERABLES Gricelda l Result PRINT/EXTERNAL (NON-INTERFACED LABS) * (ABNORMAL) CBC (Includes [...] ed Result - Final Performing Organization Address [facility]/ZIP Co de Phone Number PRINT/EXTERNAL (NON-INTERFACED LABS) * Lipid Panel (12/23/2023) Cholesterol, Total 162 P RINT/EXTERNA L (NON-INTERFAC ED LABS) Triglycerides 81 PRINT/ EXTERNA L (NON-INTERFAC ED LABS) HDL 45 mg/dL PRINT/EXTE RNA L (NON-INTERFAC ED LABS) LDL-Calculated 102 PRINT /EXTERNA L (NON-INTERFAC ED LABS) Non HDL Cholesterol 117 PRINT/EXTERNA L (NON-INTERFAC ED LABS) Blood 12/23/2023 Historical Provider MD LAB BLOOD ORDERABLES Gricelda l Result Performing Organization Address [facility]/State/ZIP Co de Phone Number PRINT/EXTERNAL (NON-INTERFACED LABS) * (ABNORMAL) ALT EXT LABS (11/18/2023) Creatinine 1.75(H) 0.60 - 1.30 mg/dL PRINT/EXTERNAL (NON-INTERFACE D LABS) eGFR 41(L) PRINT/EXTE RNAL (NON-INTERFACE D LABS) 11/18/2023 Historical Provider MD LAB BLOOD ORDERABLES Gricelda l Result PRINT/EXTERNAL (NON-INTERFACED LABS) * (ABNORMAL) Basic Metabolic Panel (BMP) (10/23/2023) Sodium 138 mEq/L [facility] Potassium 4.9 mEq/L [facility] Chloride 102 [facility] Carbon Dioxide 27 mmol/L [facility] Calcium 9.1 mg/dL [facility] BUN 25(H) mg/dL [facility] Creatinine 1.48(H) mg/dL [facility] Glucose 93 mg/dL [facility] eGFR 51(L) [facility] Anion Gap 9 [facility] 10/23/2023 Historical Provider MD LAB BLOOD ORDERABLES Gricelda l Result Performing Organization Address [facility]/ZIP Co de Phone Number ALLINA * Urinalysis (09/13/2023) Color, Urine Daniella PRINT/E XTERNA L (NON-INTERFAC ED LABS) Clarity, Urine Cloudy ! PRINT /EXTERNA L (NON-INTERFAC ED LABS) Urine Specific Galt >=1.030 PRINT/EXTERNA L (NON-INTERFAC ED LABS) pH Urine 5.5 PRINT/EXTE RNA L (NON-INTERFAC ED LABS) Leukocyte Esterase UA Moderate ! PRINT/EXTERNA L (NON-INTERFAC ED LABS) Nitrite, Urine Positive ! PRIN T/EXTERNA L (NON-INTERFAC ED LABS) Protein, Urine 30 ! PRINT /EXTERNA L (NON-INTERFAC ED LABS) Glucose, Urine Negative PRINT /EXTERNA L (NON-INTERFAC ED LABS) Ketones, Urine Negative PRINT /EXTERNA L (NON-INTERFAC ED LABS) Urobilinogen, Urine 0.2 PRINT/EXTERNA L (NON-INTERFAC ED LABS) Bilirubin, Urine Negative PRINT/EXTERNA L (NON-INTERFAC ED LABS) Blood, Urine Moderate ! PRINT/ EXTERNA L (NON-INTERFAC ED LABS) WBC, Urine 51-100 ! PRINT/EXT DUNCAN L (NON-INTERFAC ED LABS) RBC, Urine 3-10 ! PRINT/EXT DUNCAN L (NON-INTERFAC ED LABS) Bacteria, Urine Present ! PRINT/EXTERNA L (NON-INTERFAC ED LABS) Urine 09/13/2023 Historical Provider MD LAB URINE ORDERABLES Gricelda l Result PRINT/EXTERNAL (NON-INTERFACED LABS) * ALT EXT LABS (06/11/2011) Creatinine 1.00 0.60 - 1.30 mg/dL PRINT/EXTERNAL (NON-INTERFACE D LABS) eGFR Non-Afr North Korean >60 PRINT/EXTERNAL (NON-INTERFACE D LABS) eGFR >60 PRINT/EXTERNAL (NON-INTERFACE D LABS) 06/11/2011 Historical Provider MD LAB BLOOD ORDERABLES Gricelda l Result Performing Organization Address City/[facility]/ZIP Co de Phone Number PRINT/EXTERNAL (NON-INTERFACED LABS) documented in this encounter Visit Diagnoses Diagnosis Chronic kidney disease stage 3A (HCC)- Primary Malignant neoplasm of right kidney, except renal pelvis (HCC) Hypertension documented in this encounter Care Teams Steel Erector Apprentice Relationship Specialty Start Date End Date Guillermo Marcelo MD [address] [place] [phone] PCP - General Family Medicine 01/29/24 documented as of this encounter
--- OUTSIDE RECORDS SUMMARY | 2024-03-09 10:17 | XMS_ITS | Encounter Summary ---
Author Organization [facility] Address [address] [place] [address] Care Team Providers Care Business Unit Leader Name Role Phone Guillermo Marcelo MD Primary Care Provider [phone] Encounter Details Date Type Department Care Team (Late st Contact Info) Description 01/25/2024 Orders Only [facility] [address] [place] [phone] Chronic kidney disease, not otherwise specified Social History Tobacco Use Types Packs/Day Years Used Date Smoking Tobacco: Never Assessed Sex and Gender Information Value Date Recorded Sex Assigned at Not on file Legal Sex Male 3:09 PM EDT Gender Identity Not on file Sexual Orientation Not on file documented as of this encounter Plan of Treatment Upcoming Encounters Date Type Department Care Team (Late st Contact Info) Description 06/22/2024 10:40 AM ASSET PROTECTION SPECIALIST Office Visit [facility] [address] [place] [phone] Rai Feldman MD [address] [place] [address] documented as of this encounter Visit Diagnoses Diagnosis Chronic kidney disease, not otherwise specified documented in this encounter Care Teams Business Unit Leader Relationship Specialty Start Date End Date Guillermo Marcelo MD [address] [place] [address] PCP - General Family Medicine 01/29/24 documented as of this encounter
--- OUTSIDE RECORDS SUMMARY | 2024-03-09 10:17 | XMS_ITS | Continuity of Care Document ---
Author Organization [place] [facility] Address [address] [place] [address] Assessment Encounter Date Assessment Date Assessment LastModified by Organization Details LastModified Time 01/21/2024 01/21/2024 68M s/p right HALN with umbilical hernia repair on 10/09/23 for pT3aNx ccRCC (-SMS, -LVI, 5.5 cm, grade 3). 1) ccRCC of Right Kidney - MELISSA - adjuvant pembro with Dr Becker - f/u [address] C/A/P, CBC, BMP 2) Thyroid nodule - order thyroid u/s 3) CKD - will be seeing Dr Feldman, will place another referral aure Not available 01/21/2024 14:23:33 Plan of Treatment Reminders Order Date Submit Date Provider Last Modified By Organization Details Last Modified Time Details Appointments None recorded. Lab None recorded. Referral nephrologis t referral - CKD, HTN, solitary kidney 2023 024 hilaria Feldman MD, [address] [facility], [facility] [address], [place], [address], 4 08:02:33 Procedures None recorded. Surgeries None recorded. Imaging US, thyroid 2023 024 [email or web address] [facility], [address] [place], [address], 4 13:24:37 Medication Orders None recorded. Patient TargetsNo targets recorded. Patient InstructionsNo instructions recorded. Reason for Referral Educational Sign Language Interpreter Referral for Ch ronic kidney disease CKD, HTN, solitary kidney Referring Physician: Ziyad Seals, Urology, Encounter Date: 01/21/2024 Results Created Date Observation Date Name Description Value Unit Range Abnormal Flag Note LastModifiedBy Organization Detail LastModifiedTime 01/13/20 24 01/13/2024 CT, chest + abdom en + pelvi s, w/o contr ast EXAM: CT, CHEST + ABDOME N + PELVIS , W/O CONTRA ST [facility] [place] DATE: INDICA TION: Malign ant neopla sm of unspec ified kidney , except renal pelvis . COMPAR KENN: CT chest , CT abdome n and pelvis . TECHNI QUE: CT scan of the chest, abdome n and pelvis was perfor med withou t intrav enous contra st. Multip lanar reform ats were obtain ed. Dose reduct ion techni ques were used. CONTRA ST: None. FINDIN GS: LUNGS AND PLEURA : There are a few tiny stable nodule s. Stable exampl e is 3 mm latera l right upper lobe series 4, image 85. Small cluste r of nodula rity is better visual ized, but is probab ly stable latera l right upper lobe midche st series 4, image 92. No convin cing new air-sp ivan diseas e. MEDIAS TINUM/ AXILLA E: No new adenop athy or acute medias tinal abnorm ality. Stable right thyroi d nodule that may be furthe r evalua татьяна with ultras ound. MANUEL RY ARTERY CALCIF ICATIO N: Modera te. HEPATO BILIAR Y: Small hepati c cysts. Within the limits of unenha nced scanni ng, no new signif icant abnorm ality. Gallbl adder unrema rkable . PANCRE : Normal . SPLEEN : Normal . ADRENA L GLANDS : Normal . KIDNEY S/BLAD MORENO: Right nephre ctomy. Small fluid at the superi or aspect of the operat zheng site abutti ng the sales compensation analyst omedia l right liver that is 3.4 x 1 cm series 11, image 45. No left hydron ephros is. No visibl e left renal lesion within the limits of unenha nced scanni ng. No stone. Bladde r is unrema rkable and partia lly obscur ed. BOWEL: Modera te stool. No acute inflam matory change of the bowel identi fied. Coloni c divert icula. Normal append ix. LYMPH NODES: Normal . VASCUL ATURE: Scatte red calcif icatio ns. PELVIC ORGANS : Partia lly obscur ed by streak artifa ct, but no convin cing acute abnorm ality. MUSCUL OSKELE KOJO: Spine degene rative change s. No focal bone lesion . Bilate ral hip arthro plasti es. IMPRES DIANA: 1. Right nephre ctomy. Small fluid at the superi or aspect of the operat zheng site. 2. Stable small pulmon jerry nodule s. No convin cing new diseas e identi fied. This report was electr onical ly interp reted by: Star Belle MD on 2023 at 16:49 [email or web address] [facility] [place] [address] [facility] [address], [place], [address], 01/24/2024 18:00:58 Result Notes None recorded. Problems Name Problem SNOMED Code Status Onset Date Resolution Date Notes Provider Name and Address Organization Details Recorded Time Renal mass 121578214 Active 2023 Ziyad trejo MD, PHD [address] [place] [address], [phone], [facility] 4 09:15:54 Clear cell carcinoma of right kidney 45896250122246 04 Active 2023 Margarita Tomlin PA-C [address] [place] [address], [phone], [facility] 4 15:03:53 Thyroid nodule 008669981 Active 2023 Ziyad trejo MD, PHD [address] [place] [address], [phone], [facility] 4 14:16:06 Chronic kidney disease 633722642 Active 2023 Ziyad trejo MD, PHD [address], [place], [phone] 4 14:23:00 Problem Notes None recorded. Procedures Surgical History Date Name Laterality Status Provider Name and Address Organization Details Recorded Time 4 UTILITY SYSTEM OPERATOR/blood draw completed Jonelle Harman [facility] 01/13/2024 11:53:26 4 total nephrectomy completed Callie Schwarz [facility] 11/06/2023 11:22:17 4 hernia repair completed Callie Schwarz [facility] 11/06/2023 11:22:43 1 colonoscopy completed Daly Benton [facility] 10/01/2023 08:26:27 Imaging Results None recorded. Procedure Notes None recorded. Medical Equipment None Reported. Allergies No known drug allergies Medications Name Sig Start Date Stop Date Status Note LastModified by Organization Details LastModified Time atorvastatin 10 mg tablet TAKE 1 TABLET BY MOUTH ONCE DAILY active Not Available Not Available No t Available sulfamethoxa zole 800 mg-trimethop rim 160 mg tablet TAKE 1 TABLET BY MOUTH TWICE DAILY 11/05 completed Not Available Not Available Not Available cefdinir 300 mg capsule TAKE 1 CAPSULE BY MOUTH EVERY 12 HOURS FOR 7 DAYS 11/05 completed Not Available Not Available Not Available oxycodone 5 mg tablet 11/05 completed Not Available Not Available Not Available Vitals Date Recorded Body height Body mass index (BMI) Body weight Provider Name and Address Organization Details Last Updated DateTime 01/21/2024 187.96 cm 25.7 kg/m2 90974.47 g Ziyad escobar MD, PHD [address], [place], [address], [facility] 01/21/2024 13:46:46 Social History Question Answer Notes LastModified by Organizat ion Details LastModified Time Tobacco Smoking Status Former Smoker Quit August 31 2023 Callie pérez [facility] 11/06/2023 11:34:50 What Is Your Level Of Alcohol Consumption? Occasional Information not available 11/06/2023 What Is Your Level Of Caffeine Consumption? Moderate Information not available 11/06/2023 What Was The Date Of Your Most Recent Tobacco Screening? 01/21/2024 [email or web address] Information not available 01/21/2024 Sex: Unknown Functional Status None recorded. Mental Status None recorded. Family History Relationship Description Onset Age of this Age Resolved Age Notes LastModified by Organization Details LastModified Time Brother Multiple myeloma [email or web address] Not available 2023 08:25:07 Brother Family history of malignant neoplasm of prostate [email or web address] Not available 2023 08:25:30 Sister Multiple myeloma [email or web address] Not available 2023 08:25:07 Medical History Condition Response Sexually Transmitted Infection N Diabetes N Other N Bleeding Disorder N High Blood Pressure N Kidney Stones N High Cholesterol Y GERD/Acid Reflux N Heart Disease N Cancer Y Lung Disease N Depression N Past Encounters Encounter ID Performer Location Encounter Start Date Encounter Closed Date Diagnosis/Indication Diagnosis SNOMED-CT Code Diagnosis ICD10 Code [id number] Jonelle Chakraborty [facility] [address] [place] [address] 01/13/2024 11:43:00 01/15/2024 04:02:52 Clear cell carcinoma of right kidney 8171318932 221075 C64.1 [id number] Ziyad long MD, PHD [facility] [address] [place] [address] 01/21/2024 13:42:49 01/25/2024 15:29:45 Clear cell carcinoma of right kidney 7017012561 323790 C64.1 Thyroid nodule 163019070 E04.1 Chronic ki dney disease 173839241 N18.9 Health Concerns Section Related Observation LastModified by Organization Detai ls LastModified Time None Recorded Concern Status LastModified by Organization Details LastModified Time None Recorded Payers Encounter Date Sequence Insurance Name Policy Number Policy Chavez Covered Member ID Chavez Member ID Guarantor Name 01/21/2024 1 [place] [employer] Fredo Mcdonald [id number] 6 Fredo Mcdonald 01/21/2024 2 [place] [id number] Fredo Mcdonald [id number] Fredo Mcdonald Notes Date Note Type Note Provider Name and Address Organization Details Recorded Time 01/21/2024 text/html HPI Notes: 68M s/p right HALN with umbilical hernia repair on 10/09/23 for pT3aNx ccRCC (-SMS, -LVI, 5.5 cm, grade 3). Doing well. No concerns with incision. Eating ok. Started adjuvant pembro with Dr Sawyer on 12/09/23. Imaging (reviewed): 09/30/23: CT Kidneys: 8 cm right upper pole renal mass, no LAD 01/13/24: CT C/A/P: stable tiny pulmonary nodules, 3.4 cm fluid collection under liver, no evidence recurrence Labs 09/28/23: Cr 1.16, LFTs wnl (ALT slightly elevated 09/21/23) 01/13/24: Cr 1.5, Hgb 14.12 PMH: HL PSH: BRYAN, hernia, ex lap SBO (~1999) SocHx: active; daughter is MANAGER PROVIDER RELATIONS @ [employer] Occ: retired farming Tob: EtOH: FamHx: Pheo- dad Colon ca- dad Myeloma- brother Ziyad Barakat MD, PHD [address], [place], [address], [facility] 01/21/2024 14:26:03
--- OUTSIDE RECORDS SUMMARY | 2024-03-09 10:17 | XMS_ITS | Encounter Summary ---
Author Organization [facility] Address [address] [place] [address] Care Team Providers Care Thaw Shed Heater Tender Name Role Phone Unavailable Primary Care Provider Unavailabl e Encounter Details Date Type Department Care Team (Late st Contact Info) Description 01/22/2024 Documentation Only [facility] [address] [place] [phone] No, Pcp Social History Tobacco Use Types [...] st Contact Info) Description 06/22/2024 10:40 AM FONDANT PUFF MAKER Office Visit [facility] [address] [place] [phone] Rai Feldman MD [address] [place] [address] documented as of this encounter Visit Diagnoses Not on filedocumented in this encounter
--- OUTSIDE RECORDS SUMMARY | 2024-03-09 10:17 | XMS_ITS | Encounter Summary ---
Author Organization [facility] Address [address] [place] [address] Care Team Providers Care Womens Health Nurse Practitioner Name Role Phone Unavailable Primary Care Provider Unavailabl e Encounter Details Date Type Department Care Team (Late st Contact Info) Description 01/25/2024 Documentation Only [facility] [address] [place] [phone] No, Pcp Social History Tobacco Use Types [...] st Contact Info) Description 06/22/2024 10:40 AM FARM FIELD MANAGER Office Visit [facility] [address] [place] [phone] Rai Feldman MD [address] [place] [address] documented as of this encounter Visit Diagnoses Not on filedocumented in this encounter
--- OUTSIDE RECORDS SUMMARY | 2024-03-09 10:17 | XMS_ITS | Continuity of Care Document ---
Author Organization [facility] Address [address] [place] [address] Assessment Encounter Date Assessment Date Assessment LastModified by Organization Details LastModified Time 01/13/2024 01/13/2024 Here for blood draw jeyson Not available 01/13/2024 11:55:25 Plan of Treatment Reminders Order Date Submit Date Provider Last Modified By Organization Details Last Modified Time Details Appointments None recorded . Lab CBC 024 01/13/20 24 [facility], [address], [place], [address], 18:23:00 BMP, serum or plasma 024 01/13/20 24 [facility], [address], [address], [place], [address], 18:22:45 Referral None recorded . Procedures None recorded . Surgeries None recorded . Imaging None recorded . Medication Orders None recorded . Patient TargetsNo targets recorded. Patient Instructions Encounter Date Encounter Id Patient Instructions Last Modified By Organization Details Last Modified Time 01/13/2024 [id number] Pt to follow up with Dr. Bozena benítez Not available 01/13/2024 11:55:36 Reason for Referral Manager Dialysis Referral for Ch ronic kidney disease CKD, [...] , W/O CONTRA ST [facility]ATI ON: [facility] [place] DATE: INDICA TION: Malign ant neopla sm [...] the operat zheng site abutti ng the canvas shop laborer omedia l right liver that is 3.4 [...] Belle MD on 2023 at 16:49 [email or web address] [facility] [place] [address], [place], [address], 01/24/2024 18:00:58 Result Notes Documentation Provider Name and Address Organization Details Recorded Time Ct, Chest + Abdomen + Pelvis, W/o Contrast : EXAM: CT, CHEST + ABDOMEN + PELVIS, W/O CONTRAST LOCATION: [facility] DATE: 01/13/2024 INDICATION: Malignant neoplasm of unspecified kidney, except renal pelvis. COMPARISON: CT chest 10/02/2023, CT abdomen and pelvis 09/30/2023. TECHNIQUE: CT scan of the chest, abdomen and pelvis was performed without intravenous contrast. Multiplanar reformats were obtained. Dose reduction techniques were used. CONTRAST: None. FINDINGS: LUNGS AND PLEURA: There are a few tiny stable nodules. Stable example is 3 mm lateral right upper lobe series 4, image 85. Small cluster of nodularity is better visualized, but is probably stable lateral right upper lobe midchest series 4, image 92. No convincing new air-space disease. MEDIASTINUM/AXILLAE: No new adenopathy or acute mediastinal abnormality. Stable right thyroid nodule that may be further evaluated with ultrasound. CORONARY ARTERY CALCIFICATION: Moderate. HEPATOBILIARY: Small hepatic cysts. Within the limits of unenhanced scanning, no new significant abnormality. Gallbladder unremarkable. PANCREAS: Normal. SPLEEN: Normal. ADRENAL GLANDS: Normal. KIDNEYS/BLADDER: Right nephrectomy. Small fluid at the superior aspect of the operative site abutting the posteromedial right liver that is 3.4 x 1 cm series 11, image 45. No left hydronephrosis. No visible left renal lesion within the limits of unenhanced scanning. No stone. Bladder is unremarkable and partially obscured. BOWEL: Moderate stool. No acute inflammatory change of the bowel identified. Colonic diverticula. Normal appendix. LYMPH NODES: Normal. VASCULATURE: Scattered calcifications. PELVIC ORGANS: Partially obscured by streak artifact, but no convincing acute abnormality. MUSCULOSKELETAL: Spine degenerative changes. No focal bone lesion. Bilateral hip arthroplasties. IMPRESSION: 1. Right nephrectomy. Small fluid at the superior aspect of the operative site. 2. Stable small pulmonary nodules. No convincing new disease identified. This report was electronically interpreted by: Star Belle MD on 01/13/2024 at 16:49 [facility] 18:00:58 Problems Name Problem SNOMED Code Status Onset Date Resolution Date Notes Provider Name and Address Organization Details Recorded Time Renal mass 204876510 Active 2023 Ziyad trejo MD, PHD [address] [place] [phone], [facility] 4 09:15:54 Clear cell carcinoma of right kidney 47988158833891 04 Active 2023 Margarita Tomlin PA-C [address] [place] [address] [place] [address], [phone], [facility] 4 15:03:53 Thyroid nodule 500895846 Active 2023 Ziyad trejo MD, PHD [address] [place] [address], [phone], [facility] 4 14:16:06 Chronic kidney disease 097951250 Active 2023 Ziyad trejo MD, PHD [address] [place] [place] [address], [phone], [facility] 4 14:23:00 Problem Notes None recorded. Procedures Surgical History Date Name Laterality Status Provider Name and Address Organization Details Recorded Time 4 SURGICAL BRACE MAKER/blood draw completed Jonelle Harman [facility] 01/13/2024 11:53:26 4 total nephrectomy completed Callie Schwarz [facility] 11/06/2023 11:22:17 4 hernia repair completed Callie Schwarz [facility] 11/06/2023 11:22:43 1 colonoscopy completed Daly Benton [facility] 10/01/2023 08:26:27 Imaging Results None [...] Not Available Not Available Not Available Vitals None Recorded Social History Question Answer Notes LastModified by Organizat ion Details LastModified Time Tobacco Smoking Status Former Smoker Quit August 31 2023 Callie Schwarz elisa [facility] 11/06/2023 11:34:50 What Is Your Level Of Alcohol Consumption? Occasional Information not available 11/06/2023 What Is Your Level Of Caffeine Consumption? Moderate Information not available 11/06/2023 What Was The Date Of Your Most Recent Tobacco Screening? 01/21/2024 [email or web address] Information not available 01/21/2024 Sex: Unknown Functional [...] Diagnosis/Indication Diagnosis SNOMED-CT Code Diagnosis ICD10 Code [id number] Jonelle Chakraborty er [facility] [address] [address] 01/13/2024 11:43:00 01/15/2024 04:02:52 Clear cell carcinoma of right kidney 2626840341 811803 C64.1 Health Concerns Section Related Observation LastModified by Organization Detai ls LastModified Time None Recorded Concern Status LastModified by Organization Details LastModified Time None Recorded Payers Encounter Date Sequence Insurance Name Policy Number Policy Chavez Covered Member ID Chavez Member ID Guarantor Name 01/13/2024 1 [place] [employer] Fredo Mcdonald [id number] Fredo Mcdonald 01/13/[address] [facility] [id number] Fredo Mcdonald [id number] Fredo Mcdonald
--- OUTSIDE RECORDS SUMMARY | 2024-03-09 10:17 | XMS_ITS | Encounter Summary ---
Author Organization [facility] Address [address] [place] [address] Care Team Providers Care Plant And Maintenance Technician Name Role Phone Guillermo Marcelo MD Primary Care Provider [phone] Reason for Referral * Consultation (Routine) - Closed Specialty Diagnoses / Procedures Referred By Contdoron t Referred To Contact Nephrology Diagnoses Chronic kidney disease, not otherwise specified Ziyad Barakat MD PhD [facility] [place] [address] Phone: tel: fax: Rai Feldman MD [address] [place] [address] Phone: tel: fax: Referral ID Status Reason Start Date Expiration Date V isits Requested Visits Authorized [id number] Closed Specialty Services Required 01/25/2024 01/24/2025 1 1 Encounter Details Date Type Department Care Team (Latest Contact Info) Description 01/25/2024 Transcribe Orders [facility] [place] [address] [place] [address] Ann Potter Chronic kidney disease, not otherwise specified (Primary Dx) Social History Tobacco Use Types Packs/Day Years [...] st Contact Info) Description 06/22/2024 10:40 AM NEUROPSYCHOLOGY SERVICE DIRECTOR Office Visit [facility] [address] [place] [address] Rai Feldman MD [address] [place] [address] Scheduled Referrals Name Type Priority Associated Diagnoses Order Schedule Ambulatory referral to Nephrology Outpatient Referral Routine Chronic kidney disease, not otherwise specified Expected: 01/25/2024, Expires: 02/23/2025 documented as of this encounter Visit Diagnoses Diagnosis Chronic kidney disease, not otherwise specified- Primary documented in this encounter Care Teams Plant And Maintenance Technician Relationship Specialty Start Date End Date Guillermo Marcelo MD [address] [place] [address] PCP - General Family Medicine 01/29/24 documented as of this encounter
--- NOTE | 2024-03-09 10:45 | CRLHL7_ITS ---
For Patients: As a result of the Century Cures Act, medical imaging exams and procedure reports are released immediately into your electronic medical record. You may view this report before your referring provider. If you have questions, please contact your health care provider. INDICATION: nontoxic single thyroid nodule COMPARISON: none TECHNIQUE: Rodriguez scale and color Doppler images were acquired of the thyroid gland. FINDINGS: Isthmus measures 3.7 millimeters. Mostly solid nodule right thyroid lobe measures 1.8 x 1.3 x 1.5 cm, TR 4. The right lobe measures 5.8 x 1.8 x 1.9 cm and the left lobe measures 4.1 x 1.7 x 1.3 cm in size. The color Doppler images demonstrate normal vascularity. There is no evidence of cervical lymphadenopathy or parathyroid mass. IMPRESSION: 1.8 cm TR 4 nodule right thyroid lobe. Biopsy should be considered if not already performed. Dictated by Leighton Champion MD @ 03/09/2024 4:33:09 PM (Electronically Signed)
== END 2024-03-09 10:12 | disposition home or self-care (01) ==
LOC: US 10:13
PROVIDERS: PCP Family Medicine; Visit Provider Urology
DX: E04.1 Nontoxic single thyroid nodule (principal)
CPT/HCPCS: 76536

== ENCOUNTER 2024-04-11 09:58 | Outpatient (CLI) | payer MEDICARE, BC, SELFPAY ==
--- OUTSIDE RECORDS SUMMARY | 2024-04-11 10:00 | XMS_ITS | Clinical Summary ---
Author Organization [facility] Address [address] [place] [address] Care Team Providers Care Stave Log Ripsaw Operator Name Role Phone Guillermo Marcelo M.D. Primary Care Provider [phone] Source Comments Patient records contain information from all sites at [facility]. For routine questions regarding patient records, call [phone] during business hours, M-F 8:00 AM - 5:00 PM Central Time. Record requests for emergency care only can be directed to [phone] at any time.[facility] Allergies No known active allergies Medications * [...] Encounters Date Type Department Care Team Description 04/11/2024 Refill Department of Family Medicine, [facility], in [place], [place] [address] [place] [address] Caitie Holly M.D. Med Refill 02/17/2024 12:30 PM CDT Office Visit Department of Ophthalmology in [place], [place] [address] [place] [address] Meghna Nascimento M.D. Uveitis Anterior Recurrent Left (Primary Dx); Steroid Responder Left Eye; Cataract Senile Nuclear Sclerosis Bilateral; Spondyloarthropathy Human Leukocyte Antigens B27; Cancer Renal Cell Carcinoma Personal History 02/17/2024 Orders Only Department of Ophthalmology in [place], [place] [address] [place] [address] Sirena Lr, C.O.A. from Last 3 Months Immunizations Name Administration [...] Used Date Smoking Tobacco: Former Cigarettes 0.5 54.9 S tarted: 05/18/1969 Cigars Started: 05/18 Smokeless [...] How often do you attend chur or scientologist services? More than 4 times per year 09/19/2021 Do you belong to any clubs o r organizations such as confucianism groups, unions, fraternal or athletic groups, or [...] Answer Date Recorded PHQ-2 Score 0 08/31/2023 [facility] - Occupational Stress [...] your living situation today? I have a [facility] place to live 12/08/2022 Education Answer Date Recorded What is the highest level of school you have completed or the highest degree you have received? 12th grade 09/19/2021 Sex and Gender Information Value Date Recorded Sex Assigned at Male 10/15/2017 7:21 PM CDT Legal Sex Male 2:00 AM WOOD ROOM HAND Gender Identity Male 10/15/2017 7:21 PM CDT Sexual Orientation Straight 10/15/2017 7: 21 PM CDT Last Filed Vital Signs Vital Sign Reading Time Taken Comments Blood Pressure 149/76 11/18/2023 7:41 AM CDT Pulse 64 11/18/2023 7:41 AM CDT Temperature 36.1 C (97 F) 11/18/2023 7:41 AM CDT Respiratory Rate 20 [...] (Latest Contact Info) Description 05/04/2024 10:00 AM WOOD ROOM HAND Comprehensive Visit Department of Sleep Medicine in [place] [address] [place] [address] Leighton Schmitz M.D. [address] [place] [phone] Discharge Disposition: Home or Self Care Health Maintenance Due Date Last Done Comments CT Colonography 1955 Cologuard 1955 COVID-19 Vaccine ( season) 2024 04/19/2021, 08/14/2020, 07/24/2020 Influenza Vaccine (#1) 2024 , 02/26/2021, 02/06/2020, Additional history exists Office Visit for Blood Pressure Check / Re-check 02/18/2024 11/18/2023, 10/02/2023, 10/02/2023 Visit: Medicare Annual Wellness 09/02/2024 09/02/2023 Visit: Annual, age 65+ (or Medicare and <65) 10/25/2024 10/26/2023 Lipid (Cholesterol) Screening 12/22/2024 12/23/2023, 12/15/2022, 09/27/2021, Additional history exists Colonoscopy 05/17/2025 [...] Cancer Screening Discontinued 10/02/2023 Abdominal Aortic Aneurysm (AAA) Screen Completed 10/13/2023, 10/13/2023, 09/16/2023, Additional history exists IPV Vaccines Aged Out No longer eligi ble based on patient's age to complete this topic Medical Devices Implanted Type Area Lvn Home Health Device Identifier Shelf Expiration Date Model / Serial / Lot Green Ridge Screw 2 Canc 6.5 X 20 - Robert [id number] Implanted:Qty: 1 on 05/22/2006 Hardware e.g. pins/screws /rods [employer] Description:Device Manufactu rer - [employer]. Device Status Text - [id number]. Green Ridge Screw 2 Canc 6.5 X 40 - Robert [id number] Implanted:Qty: 1 on 05/22/2006 Hardware e.g. pins/screws /rods [employer] Description:Device Manufactu rer - [employer]. Device Status Text - [id number]. Green Ridge Screw 2 Canc 6.5 X 35 - Robert [id number] Implanted:Qty: 1 on 05/14/2009 Hardware e.g. pins/screws /rods [employer] Description:Device Manufactu rer - [employer]. Device Status Text - [id number]. Green Ridge Screw 2 Canc 6.5 X 20 - Robert [id number] Implanted:Qty: 1 on 05/14/2009 Hardware e.g. pins/screws /rods [employer] Description:Device Manufactu rer - [employer]. Device Status Text - HARDWARE-39991. J J Insert P Fatou +4 10 36x58 - Robert [id number] Implanted:Qty: 1 on 05/22/2006 Hip Implant Other/Legacy - See Implant Description [employer] Description:Device Manufactu rer - [employer]. Body Location - Other. Left. Device Status Text - HIP [id number]. Green Ridge Shell Multi 2 58mm - Robert [id number] Implanted:Qty: 1 on 05/22/2006 Hip Implant Other/Legacy - See Implant Description [employer] Description:Device Manufactu rer - [employer]. Body Location - Other. Left. Device Status Text - HIP [id number]. J J Articul Travis Head 36 + 5.0 - Robert [id number] Implanted:Qty: 1 on 05/22/2006 Hip Implant Other/Legacy - See Implant Description [employer] Description:Device Manufactu rer - [employer]. Body Location - Other. Left. Device Status Text - HIP [id number]. Depuy Aml High Offset Lg 15.0 - Robert [id number] Implanted:Qty: 1 on 05/22/2006 Hip Implant Other/Legacy - See Implant Description [employer] Description:Device Manufactu rer - [employer]. Body Location - Other. Left. Device Status Text - HIP IMP-321631. Delta-Head Ceramic 36mm +1.5 - Robert [id number] Implanted:Qty: 1 on 05/14/2009 Hip Implant Other/Legacy - See Implant Description [employer] Description:Device Manufactu rer - [employer]. Body Location - Other. Right. Device Status Text - HIP [id number]. J J Insert P Fatou +4 10 36x58 - Robert [id number] Implanted:Qty: 1 on 05/14/2009 Hip Implant Other/Legacy - See Implant Description [employer] Description:Device Manufactu rer - [employer]. Body Location - Other. Right. Device Status Text - HIP [id number]. Green Ridge Shell Multi 2 58mm - Robert [id number] Implanted:Qty: 1 on 05/14/2009 Hip Implant Other/Legacy - See Implant Description [employer] Description:Device Manufactu rer - [employer]. Body Location - Other. Right. Device Status Text - HIP [id number]. Depuy Aml High Offset Lg 15.0 - Robert [id number] Implanted:Qty: 1 on 05/14/2009 Hip Implant Other/Legacy - See Implant Description [employer] Description:Device Manufactu rer - [employer]. Body Location - Other. Right. Device Status Text - HIP [id number]. Depuy-Insert Stabilized Sz 5 10mm - Robert [id number] Implanted:Qty: 1 on 07/08/2011 Knee Implant Other/Legacy - See Implant Description [employer] Description:Device Manufactu rer - [employer]. Body Location - Other. Right. Device Status Text - KNEE IMP-174206. Depuy-Insert Stabilized Sz 5 10mm - Robert [id number] Implanted:Qty: 1 on 07/08/2011 Knee Implant Other/Legacy - See Implant Description [employer] Description:Device Manufactu rer - [employer]. Body Location - Other. Left. Device Status Text - KNEE [id number]. J J Sig Patella Oval 38 - Robert [id number] Implanted:Qty: 1 on 07/08/2011 Knee Implant Other/Legacy - See Implant Description [employer] Description:Device Manufactu rer - [employer]. Body Location - Other. Right. Device Status Text - KNEE IMP-008563. J J Sig Patella Oval 38 - Robert [id number] Implanted:Qty: 1 on 07/08/2011 Knee Implant Other/Legacy - See Implant Description [employer] Description:Device Manufactu rer - [employer]. Body Location - Other. Left. Device Status Text - KNEE IMP-007768. Sigma Post Stab.W Lug Fem Sz 6 Lt - Robert [id number] Implanted:Qty: 1 on 07/08/2011 Knee Implant Other/Legacy - See Implant Description [employer] Description:Device Manufactu rer - [employer]. Body Location - Other. Left. Device Status Text - KNEE IMP-[id number]. Depuy-Tib Tray Mod Cement Cocr Sz5 - Robert [id number] Implanted:Qty: 1 on 07/08/2011 Knee Implant Other/Legacy - See Implant Description [employer] Description:Device Manufactu rer - [employer]. Body Location - Other. Right. Device Status Text - KNEE IMP-319136. Depuy-Tib Tray Mod Cement Cocr Sz5 - Robert [id number] Implanted:Qty: 1 on 07/08/2011 Knee Implant Other/Legacy - See Implant Description [employer] Description:Device Manufactu rer - [employer]. Body Location - Other. Left. Device Status Text - KNEE IMP-687075. Sigma Post Stab.W Lug Fem Sz 6 Rt - Robert [id number] Implanted:Qty: 1 on 07/08/2011 Knee Implant Other/Legacy - See Implant Description [employer] Description:Device Manufactu rer - [employer]. Body Location - Other. Right. Device Status Text - KNEE IMP-954911. Cement Bone Large - Robert [id number] Implanted:Qty: 4 on 07/08/2011 [facility] [place]shul Description:Device Manufactu rer - [place] [employer].. Device Status Text - MISCOTHER-2840. Procedures Procedure Name Priority Date/Time Associated Diagnosis Comments LIPID PANEL, S Routine 12/23/2023 10:26 AM CDT Hyperlipidemia BASIC METABOLIC PANEL, S/P Routine 10/26/2023 2:00 PM CDT Cancer Renal Cell Carcinoma Personal History COLONOSCOPY Routine 09/28/2019 1:07 PM CDT Tubular Adenoma Colon Personal History HCV AB SCRN W/REFLEX TO HCV PCR, S Routine 06/12/2017 11:[address] CT ABDOMEN PELVIS WITH IV CONTRAST Routine 04/10/2000 4:00 AM WOOD ROOM HAND from Last 3 Months or Most Recently [...] Marcelo M.D. LAB BLOOD ADD-ON Final Result [facility] [address] [place] [address], [facility] NPRG [facility] [address] [place] [address] * (ABNORMAL) Basic Metabolic Panel (10/26/2023 2:00 [...] Bonner M.D. LAB BLOOD ADD-ON Final Result [facility] [address] [place] [address], [facility] [address] [place] [address] * HCV AB Scrn w/Reflex to HCV PCR, S (06/12/2017 11:35 AM WOOD ROOM HAND) HCV Ab Screen, S Negative Negative [facility] Comment:Lqntyn-cz-cehtqk rat io is <1.00. 06/12/2017 11:3 5 AM WOOD ROOM HAND 06/12/2017 11:35 AM WOOD ROOM HAND us Noah Adan M.D. LAB MICROBIOLOGY - BLOOD ORDERABLES Final Result Performing Organization Address [facility] Co de Phone Number [facility] [address] [place] [address], [facility] * CT Abdomen Pelvis with IV Contrast (04/10/2000 4:00 AM WOOD ROOM HAND) Anatomical Region Laterality Modality Abdomen, Pelvis N/A Computed Tomogra phy 04/10/2000 4:00 AM WOOD ROOM HAND Narrative 04/10/2000 7:16 AM WOOD ROOM HAND 10-Apr-2000 04:00:00 Exam: CT ABDOMEN w & PELVIS w Indications: abdo pain, mid epigastrium ORIGINAL REPORT - 10-Apr-2000 05:19:00 ([id number]) CT abdomen and pelvis with oral and IV contrast enhancement demonstrates multiple mildly dilated fluid filled loops of mid and distal small bowel in the left abdomen and pelvis, measuring up to 5 cm in diameter. The colon is relatively decompressed. No intraperitoneal free air demonstrated. No obstructing mass or transition zone is demonstrated. Findings are nonspecific, but early or partial mechanical SBO cannot be excluded. Follow-up radiographs may be helpful if clinically indicated. Small amount of free fluid in the pelvis. Tiny hypodense liver foci (image 12) is most likely an unopacified vessel or benign simple cyst. Otherwise negative. Findings discussed with service. (Optiray 320, 120 cc's, debility) Electronically signed by: Lynn [id number] ([id number]) 10-Apr-2000 05:19 I have reviewed the films/images and agree with the above interpretation. Electronically signed by: Richi Dyer M.D. [id number] 10-Apr-2000 07:16 Procedure Note Jagdish Dyer M.D. [...] 120 cc's, debility) Electronically signed by: Lynn [id number] ([id number]) 10-Apr-2000 05:19 I have reviewed the films/images and agree with the above interpretation. Electronically signed by: Richi Dyer M.D. [id number] 10-Apr-2000 07:16 Albert Vanessa M.D. IM CT PROCEDURES Final Result from Last 3 Months or Most Recently Relevant to Health Maintenance Insurance MEDICARE [facility] Care Teams Stave Log Ripsaw Operator Relationship Specialty Start Date End Date [place]ill[place] [address] PCP - General Family Medicine 07/30/23 [facility] 09/02/23
--- OUTSIDE RECORDS SUMMARY | 2024-04-11 10:01 | XMS_ITS | Encounter Summary ---
Author Organization [facility] Address [address] [place] [address] Care Team Providers Care Outside Sales Associate Name Role Phone Guillermo Marcelo M.D. Primary Care Provider [phone] Reason for Referral * Outpatient (Routine) - Authorized Specialty Diagnoses / Procedures Referred By Gaby lagunas Referred To Contact Ophthalmology Meghna Nascimento M.D. [address] [place] [address] Phone: tel: fax: [facility] Referral ID Status Reason Start Date Expiration Date V isits Requested Visits Authorized [id number] Authorized 02/17/2024 08/18/2025 1 1 Scheduling Instructions Late July/early August 2024: Thursday at 12:30 pm Reason for Visit * Reason Comments Follow-up * Outpatient (Routine) - Closed Specialty Diagnoses / Procedures Referred By Gaby lagunas Referred To Contact Ophthalmology Meghna Nascimento M.D. [address] [place] [address] Phone: tel: fax: [facility] Referral ID Status Reason Start Date Expiration Date Visits Re quested Visits Authorized [id number] Closed 11/18/2023 05/19/2025 1 1 Encounter Details Date Type Department Care Team (Latest Contact Info) Description 02/17/2024 12:30 PM CDT Office Visit Department of Ophthalmology in [place], [place] [address] [place] [address] Meghna Nascimento M.D. [address] [place] [address] Uveitis Anterior Recurrent Left (Primary Dx); Steroid [...] often do you attend chur ch or mandaen services? More than 4 times per year 09/19/2021 Do you belong to any clubs o r organizations such as jainism groups, unions, fraternal or athletic groups, or [...] Answer Date Recorded PHQ-2 Score 0 08/31/2023 [facility] - Occupational Stress Questionnaire Answer Date Recorded [...] PM CDT Legal Sex Male 2:00 AM BUSINESS SUPPORT ASSISTANT Gender Identity Male 10/15/2017 7:21 PM [...] vision loss), he should call Dr. Nascimento's traveling secretary: [phone] Nascimento is not available, he should be seen by one of the retina fellows, the resident on the retina or uveitis service, or one of the residents in the comprehensive ophthalmology clinic. If he has severe symptoms on the weekend and he thinks he cannot wait until the next business day, he should call the [place] drill rig operator at [phone] and ask for the eye doctor juvenile detention officer. Otherwise, we will reassess in about six months (late July or early August 2024 - schedule on a Thursday at 12:30 pm: [facility], [facility], trop both eyes, [facility]) Summary to Dr. Earnestine Becker ([facility]) documented in this encounter Plan of Treatment Upcoming Encounters Date Type Department Care Team (Latest Contact Info) Description 05/04/2024 10:00 AM BUSINESS SUPPORT ASSISTANT Comprehensive Visit Department of Sleep Medicine in [place], [place] [address] [place] [address] Leighton Schmitz M.D. [address] [place] [phone] Discharge Disposition: Home or Self Care Scheduled [...] Total Score: 2 06/11/19 18 1:22 PM BUSINESS SUPPORT ASSISTANT documented as of this encounter Care Teams Outside Sales Associate Relationship Specialty Start Date End Date Guillermo Marcelo M.D. [address] [place] [address] PCP - General Family Medicine 07/30/23 [facility] 09/02/23 documented as of this encounter
--- OUTSIDE RECORDS SUMMARY | 2024-04-11 10:01 | XMS_ITS | Encounter Summary ---
Author Organization [facility] Address [address] [place] [address] Care Team Providers Care Research And Evaluation Manager Name Role Phone Guillermo Marcelo M.D. Primary Care Provider Encounter Details Date Type Department Care Team (Late st Contact Info) Description 08/08/2016 Historical Ophthalmology [facility] Urban Garza M.D. [address] [address] Social History Tobacco Use Types Packs/Day Years Used Date Smoking Tobacco: Never Assessed Sex and Gender Information Value Date Recorded Sex Assigned at Male 10/15/2017 7:21 PM CDT Legal Sex Male 2:00 AM ASSOCIATE PROFESSOR OF BIBLICAL STUDIES Gender Identity Male 10/15/2017 7:21 PM CDT [...] Ankylosing spondylitis CDM Reports - EYEGEN Id: [id number] Status: Fnl documented in this encounter Plan of Treatment Upcoming Encounters Date Type Department Care Team (Latest Contact Info) Description 05/04/2024 10:00 AM ASSOCIATE PROFESSOR OF BIBLICAL STUDIES Comprehensive Visit Department of Sleep Medicine in [address] [address] Leighton Schmitz M.D. [address] [place] [phone] Discharge Disposition: Home or Self Care documented [...] Total Score: 2 03/27/20 16 8:21 AM ASSOCIATE PROFESSOR OF BIBLICAL STUDIES documented as of this encounter Care Teams Research And Evaluation Manager Relationship Specialty Start Date End Date Guillermo Marcelo M.D. [address] [facility] [place] [address] PCP - General Family Medicine 07/30/23 [facility] 09/02/23 documented as of this encounter
--- OUTSIDE RECORDS SUMMARY | 2024-04-11 10:01 | XMS_ITS | Encounter Summary ---
Author Organization [facility] Address [address] [place] [address] Care Team Providers Care Skein Winder Name Role Phone Guillermo Marcelo M.D. Primary Care Provider [phone] Encounter Details Date Type Department Care Team (Late st Contact Info) Description 08/01/2016 Historical Ophthalmology [facility] Urban Garza M.D. [address] [address] Social History Tobacco Use Types Packs/Day Years Used Date Smoking Tobacco: Never Assessed Sex and Gender Information Value Date Recorded Sex Assigned at Male 10/15/2017 7:21 PM CDT Legal Sex Male 2:00 AM SCHOOL CAFETERIA COOK Gender Identity Male 10/15/2017 7:21 PM CDT [...] Using PF Q1H while awake. 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 [address] [place] [phone] Discharge Disposition: Home or Self Care documented [...] Total Score: 2 03/27/20 16 8:21 AM SCHOOL CAFETERIA COOK documented as of this encounter Care Teams Skein Winder Relationship Specialty Start Date End Date Guillermo Marcelo M.D. NPCassidy: [phone] [address] [facility] [address] [place] [address] PCP - General Family Medicine 07/30/23 [facility] 09/02/23 documented as of this encounter
--- OUTSIDE RECORDS SUMMARY | 2024-04-11 10:01 | XMS_ITS | Encounter Summary ---
Author Organization [facility] Address [address] [place] [address] Care Team Providers Care Complaint Adjuster Name Role Phone Guillermo Marcelo M.D. Primary Care Provider [phone] Encounter Details Date Type Department Care Team (Late st Contact Info) Description 10/08/2016 Historical Ophthalmology [facility] Urban Garza M.D. [address] [address] Social History Tobacco Use Types Packs/Day Years Used Date Smoking Tobacco: Never Assessed Sex and Gender Information Value Date Recorded Sex Assigned at Male 10/15/2017 7:21 PM CDT Legal Sex Male 2:00 AM PAINTER FOREMAN Gender Identity Male 10/15/2017 7:21 PM CDT [...] Ankylosing spondylitis CDM Reports - EYEGEN Id: [id number] Status: Fnl documented in this encounter Plan of Treatment Upcoming Encounters Date Type Department Care Team (Latest Contact Info) Description 05/04/2024 10:00 AM PAINTER FOREMAN Comprehensive Visit Department of Sleep Medicine in [place], [place] [address] [place] [phone] Leighton Schmitz M.D. [address] [place] [phone] Discharge Disposition: Home or Self Care documented [...] Total Score: 2 03/27/20 16 8:21 AM PAINTER FOREMAN documented as of this encounter Care Teams Complaint Adjuster Relationship Specialty Start Date End Date Guillermo Marcelo M.D. [address] [place] [address] PCP - General Family Medicine 07/30/23 [facility] 09/02/23 documented as of this encounter
--- OUTSIDE RECORDS SUMMARY | 2024-04-11 10:01 | XMS_ITS | Encounter Summary ---
Author Organization [facility] Address [address] [place] [address] Care Team Providers Care Vba Programmer Name Role Phone Guillermo Marcelo M.D. Primary Care Provider Encounter Details Date Type Department Care Team (Late st Contact Info) Description 06/12/2017 Historical Ophthalmology [facility] Urban Garza M.D. [address] [address] Social History Tobacco Use Types Packs/Day Years Used Date Smoking Tobacco: Never Assessed Sex and Gender Information Value Date Recorded Sex Assigned at Male 10/15/2017 7:21 PM CDT Legal Sex Male 2:00 AM SENIOR SHIPPING CLERK Gender Identity Male 10/15/2017 7:21 PM [...] Ankylosing spondylitis CDM Reports - EYEGEN Id: [id number] Status: Fnl documented in this encounter Plan of Treatment Upcoming Encounters Date Type Department Care Team (Latest Contact Info) Description 05/04/2024 10:00 AM SENIOR SHIPPING CLERK Comprehensive Visit Department of Sleep Medicine in [address] [phone] Leighton Schmitz M.D. [address] [place] [phone] Discharge Disposition: Home or Self Care documented [...] Score: 2 06/11/19 18 1:22 PM SENIOR SHIPPING CLERK documented as of this encounter Care Teams Vba Programmer Relationship Specialty Start Date End Date Guillermo Marcelo M.D. NPCassidy: [phone] [place] [address] PCP - General Family Medicine 07/30/23 [facility] 09/02/23 documented as of this encounter
--- OUTSIDE RECORDS SUMMARY | 2024-04-11 10:01 | XMS_ITS | Encounter Summary ---
Author Organization [facility] Address [address] [place] [address] Care Team Providers Care Rehabilitation Program Coordinator Name Role Phone Guillermo Marcelo M.D. Primary Care Provider [phone] Reason for Visit * Reason Comments Med Refill Encounter Details Date Type Department Care Team (Late st Contact Info) Description 04/11/2024 Refill Department of Family Medicine, [facility] in [place], [place] [address] [place] [address] Caitie Holly M.D. [address] [place] [phone] Med Refill Social History Tobacco Use Types Packs/Day Years [...] often do you attend chur ch or gnosticist services? More than 4 times per year 09/19/2021 Do you belong to any clubs o r organizations such as yazidism groups, unions, fraternal or athletic groups, or [...] Answer Date Recorded PHQ-2 Score 0 08/31/2023 [facility] [place] of Occupat ional Health - Occupational Stress [...] your living situation today? I have a [facility] place to live 12/08/2022 Education Answer Date Recorded What is the highest level of school you have completed or the highest degree you have received? 12th grade 09/19/2021 Sex and Gender Information Value Date Recorded Sex Assigned at Male 10/15/2017 7:21 PM CDT Legal Sex Male 2:00 AM RESPITE PROVIDER Gender Identity Male 10/15/2017 7:21 PM CDT Sexual Orientation Straight 10/15/2017 7: 21 PM CDT documented as of this encounter Plan of Treatment Upcoming Encounters Date Type Department Care Team (Latest Contact Info) Description 05/04/2024 10:00 AM RESPITE PROVIDER Comprehensive Visit Department of Sleep Medicine in [place], [place] [address] [place] [phone] Leighton Schmitz M.D. [address] [place] [address] Discharge Disposition: Home or Self Care documented as of this encounter Visit Diagnoses Not on filedocumented in this encounter Additional Health Concerns Assessment Noted Time PHQ-9 Depression Total Score: 2 06/11/19 18 1:22 PM RESPITE PROVIDER documented as of this encounter Care Teams Rehabilitation Program Coordinator Relationship Specialty Start Date End Date Guillermo Marcelo M.D. [address] [place] [address] PCP - General Family Medicine 07/30/23 [facility] 09/02/23 documented as of this encounter
--- OUTSIDE RECORDS SUMMARY | 2024-04-11 10:01 | XMS_ITS | Encounter Summary ---
Author Organization [facility] Address [address] [place] [address] Care Team Providers Care Supervisor Benzene Refining Name Role Phone Guillermo Marcelo M.D. Primary Care Provider [phone] Encounter Details Date Type Department Care Team (Late st Contact Info) Description 08/04/2016 Historical Ophthalmology RST OPH Urban Garza M.D. [address] [address] Social History Tobacco Use Types Packs/Day Years Used Date Smoking Tobacco: Never Assessed Sex and Gender Information Value Date Recorded Sex Assigned at Male 10/15/2017 7:21 PM CDT Legal Sex Male 2:00 AM OYSTER CULTIVATOR Gender Identity Male 10/15/2017 7:21 PM CDT [...] Ankylosing spondylitis CDM Reports - EYEGEN Id: [id number] Status: Fnl documented in this encounter Plan of Treatment Upcoming Encounters Date Type Department Care Team (Latest Contact Info) Description 05/04/2024 10:00 AM OYSTER CULTIVATOR Comprehensive Visit Department of Sleep Medicine in [place], [place] [address] [place] [phone] Leighton Schmitz M.D. [address] [place] [phone] Discharge Disposition: Home or Self Care documented [...] Total Score: 2 03/27/20 16 8:21 AM OYSTER CULTIVATOR documented as of this encounter Care Teams Supervisor Benzene Refining Relationship Specialty Start Date End Date Guillermo Marcelo [place].D. [address] [place] [address] PCP - General Family Medicine 07/30/23 [facility] 09/02/23 documented as of this encounter
--- OUTSIDE RECORDS SUMMARY | 2024-04-11 10:01 | XMS_ITS | Referral Summary ---
Author Organization [facility] Address [address] [place] [address] Care Team Providers Care Shell Molder Name Role Phone Guillermo Marcelo M.D. Primary Care Provider [phone] Source Comments Patient records contain information from all sites at [facility]. For routine questions regarding patient records, call [phone] during business hours, M-F 8:00 AM - 5:00 PM Central Time. Record requests for emergency care only can be directed to [phone] at any time.[facility] Encounters Date Type Department Care Team Description 04/11/2024 Refill Department of Family Medicine, [facility], in [place], [place] [address] [place] [address] Caitie Holly M.D. Med Refill 02/17/2024 Orders Only Department of Ophthalmology in [place], [place] [address] [place] [phone] Sirena Lr, CHermelindaOPawan 02/17/2024 12:30 PM CDT Office Visit Department of Ophthalmology in [place], [place] [address] [place] [phone] Meghna Nascimento M.D. Uveitis Anterior Recurrent Left (Primary Dx); Steroid Responder Left Eye; Cataract Senile Nuclear Sclerosis Bilateral; Spondyloarthropathy Human Leukocyte Antigens B27; Cancer Renal Cell Carcinoma Personal History from Last 3 Months Allergies No known [...] often do you attend chur ch or jew services? More than 4 times per year 09/19/2021 Do you belong to any clubs o r organizations such as jew groups, unions, fraternal or athletic groups, or [...] Answer Date Recorded PHQ-2 Score 0 08/31/2023 [facility] of Occupat ional Health - Occupational Stress [...] your living situation today? I have a [facility] place to live 12/08/2022 Education Answer Date Recorded What is the highest level of school you have completed or the highest degree you have received? 12th grade 09/19/2021 Sex and Gender Information Value Date Recorded Sex Assigned at Male 10/15/2017 7:21 PM CDT Legal Sex Male 2:00 AM WELLNESS SPECIALIST Gender Identity Male 10/15/2017 7:21 PM CDT [...] (Latest Contact Info) Description 05/04/2024 10:00 AM WELLNESS SPECIALIST Comprehensive Visit Department of Sleep Medicine in [address] [phone] Leighton Schmitz M.D. [address] [place] [phone] Discharge Disposition: Home or Self Care Medical Devices Implanted Type Area In Tube Conversion Technician Device Identifier Shelf Expiration Date Model / Serial / Lot Laton Screw 2 Canc 6.5 X 20 - Robert [id number] Implanted:Qty: 1 on 05/22/2006 Hardware e.g. pins/screws /rods [employer] Description:Device Manufactu rer - J [employer]. Device Status Text - [id number]. Laton Screw 2 Canc 6.5 X 40 - Robert [id number] Implanted:Qty: 1 on 05/22/2006 Hardware e.g. pins/screws /rods [employer] Description:Device Manufactu rer - J [employer]. Device Status Text - [id number]. Laton Screw 2 Canc 6.5 X 35 - Robert [id number] Implanted:Qty: 1 on 05/14/2009 Hardware e.g. pins/screws /rods [employer] Description:Device Manufactu rer - J [employer]. Device Status Text - [id number]. Laton Screw 2 Canc 6.5 X 20 - Robert [id number] Implanted:Qty: 1 on 05/14/2009 Hardware e.g. pins/screws /rods [employer] Description:Device Manufactu rer - J [employer]. Device Status Text - HARDWARE-84501. J J Insert P Fatou +4 10 36x58 - Robert [id number] Implanted:Qty: 1 on 05/22/2006 Hip Implant Other/Legacy - See Implant Description [employer] Description:Device Manufactu rer - J [employer]. Body Location - Other. Left. Device Status Text - HIP [id number]. Laton Shell Multi 2 58mm - Robert [id number] Implanted:Qty: 1 on 05/22/2006 Hip Implant Other/Legacy - See Implant Description [employer] Description:Device Manufactu rer - J [employer]. Body Location - Other. Left. Device Status Text - HIP [id number]. J J Articul Travis Head 36 + 5.0 - Robert [id number] Implanted:Qty: 1 on 05/22/2006 Hip Implant Other/Legacy - See Implant Description [employer] Description:Device Manufactu rer - J [employer]. Body Location - Other. Left. Device Status Text - HIP IMP-084184. Depuy Aml High Offset Lg 15.0 - Robert [id number] Implanted:Qty: 1 on 05/22/2006 Hip Implant Other/Legacy - See Implant Description [employer] Description:Device Manufactu rer - [employer]. Body Location - Other. Left. Device Status Text - HIP IMP-606996. Delta-Head Ceramic 36mm +1.5 - Robert [id number] Implanted:Qty: 1 on 05/14/2009 Hip Implant Other/Legacy - See Implant Description [employer] Description:Device Manufactu rer - J [employer]. Body Location - Other. Right. Device Status Text - HIP IMP-592334. J J Insert P Fatou +4 10 36x58 - Robert [id number] Implanted:Qty: 1 on 05/14/2009 Hip Implant Other/Legacy - See Implant Description [employer] Description:Device Manufactu rer - J [employer]. Body Location - Other. Right. Device Status Text - HIP IMP-716869. Laton Shell Multi 2 58mm - Robert [id number] Implanted:Qty: 1 on 05/14/2009 Hip Implant Other/Legacy - See Implant Description [employer] Description:Device Manufactu rer - J [employer]. Body Location - Other. Right. Device Status Text - HIP IMP-011571. Depuy Aml High Offset Lg 15.0 - Robert [id number] Implanted:Qty: 1 on 05/14/2009 Hip Implant Other/Legacy - See Implant Description [employer] Description:Device Manufactu rer - J [employer]. Body Location - Other. Right. Device Status Text - HIP IMP-081448. Depuy-Insert Stabilized Sz 5 10mm - Robert [id number] Implanted:Qty: 1 on 07/08/2011 Knee Implant Other/Legacy - See Implant Description [employer] Description:Device Manufactu rer - J [employer]. Body Location - Other. Right. Device Status Text - KNEE IMP-980871. Depuy-Insert Stabilized Sz 5 10mm - Robert [id number] Implanted:Qty: 1 on 07/08/2011 Knee Implant Other/Legacy - See Implant Description [employer] Description:Device Manufactu rer - J [employer]. Body Location - Other. Left. Device Status Text - KNEE IMP-644836. J J Sig Patella Oval 38 - Robert [id number] Implanted:Qty: 1 on 07/08/2011 Knee Implant Other/Legacy - See Implant Description [employer] Description:Device Manufactu rer - J [employer]. Body Location - Other. Right. Device Status Text - KNEE IMP-646822. J J Sig Patella Oval 38 - Robert [id number] Implanted:Qty: 1 on 07/08/2011 Knee Implant Other/Legacy - See Implant Description [employer] Description:Device Manufactu rer - J [employer] J Orth[employer]. Body Location - Other. Left. Device Status Text - KNEE IMP-223455. Sigma Post Stab.W Lug Fem Sz 6 Lt - Robert [id number] Implanted:Qty: 1 on 07/08/2011 Knee Implant Other/Legacy - See Implant Description [employer] Description:Device Manufactu rer - J [employer]. Body Location - Other. Left. Device Status Text - KNEE IMP-930466. Depuy-Tib Tray Mod Cement Cocr Sz5 - Robert [id number] Implanted:Qty: 1 on 07/08/2011 Knee Implant Other/Legacy - See Implant Description [employer] Description:Device Manufactu rer - J [employer] J Orth[employer]. Body Location - Other. Right. Device Status Text - KNEE IMP-013918. Depuy-Tib Tray Mod Cement Cocr Sz5 - Robert [id number] Implanted:Qty: 1 on 07/08/2011 Knee Implant Other/Legacy - See Implant Description [employer] Description:Device Manufactu rer - J [employer] J Orth[employer]. Body Location - Other. Left. Device Status Text - KNEE IMP-855723. Sigma Post Stab.W Lug Fem Sz 6 Rt - Robert [id number] Implanted:Qty: 1 on 07/08/2011 Knee Implant Other/Legacy - See Implant Description [employer] Description:Device Manufactu rer - J [employer] J Ortho. Body Location - Other. Right. Device Status Text - KNEE IMP-341752. Cement Bone Large - Robert [id number] Implanted:Qty: 4 on 07/08/2011 Misc Other [place] Description:Device Manufactu rer - Anshul Valencia.. Device [...] HCV PCR, S Routine 06/12/2017 11:[address] ABDOMEN PELVIS WITH IV CONTRAST Routine 04/10/2000 4:00 AM WELLNESS SPECIALIST from Last 3 Months or Most Recently [...] Marcelo M.D. LAB BLOOD ADD-ON Final Result [facility] [address] [place] [address], [place] NPRG [facility] [address] [place] [address] * (ABNORMAL) Basic Metabolic Panel (10/26/2023 2:00 PM CDT) [facility] Potassium, P 5.1 3.6 - 5.2 mmol/L [...] Bonner M.D. LAB BLOOD ADD-ON Final Result [facility] [address] [place] [address], [facility] NPR[facility] [address] [place] [address] * HCV AB Scrn w/Reflex to HCV PCR, S (06/12/2017 11:35 AM WELLNESS SPECIALIST) HCV Ab Screen, S Negative Negative [facility] Comment:Lpvooj-[id number] rat io is <1.00. 06/12/2017 11:3 5 AM WELLNESS SPECIALIST 06/12/2017 11:35 AM WELLNESS SPECIALIST us Noah Adan M.D. LAB MICROBIOLOGY - BLOOD ORDERABLES Final Result [facility] [address] [place] [address], [facility] * CT Abdomen Pelvis with IV Contrast (04/10/2000 4:00 AM WELLNESS SPECIALIST) Anatomical Region Laterality Modality Abdomen, Pelvis N/A Computed Tomogra phy 04/10/2000 4:00 AM WELLNESS SPECIALIST Narrative 04/10/2000 7:16 AM WELLNESS SPECIALIST 10-Apr-2000 04:00:00 Exam: CT ABDOMEN w & PELVIS w Indications: abdo pain, mid epigastrium ORIGINAL REPORT - 10-Apr-2000 05:19:00 ([id number]) CT abdomen and pelvis with oral and [...] 120 cc's, debility) Electronically signed by: Lynn [phone] ([id number]) 10-Apr-2000 05:19 I have reviewed the films/images and agree with the above interpretation. Electronically signed by: Richi Dyer M.D. [id number] 10-Apr-2000 07:16 Procedure Note Jagdish Dyer M.D. - 08/24/2017 10-Apr-2000 04:00:00 Exam: CT ABDOMEN w & PELVIS w Indications: abdo pain, mid epigastrium ORIGINAL REPORT - 10-Apr-2000 05:19:00 ([id number]) CT abdomen and pelvis with oral and [...] 120 cc's, debility) Electronically signed by: Lynn [phone] ([id number]) 10-Apr-2000 05:19 I have reviewed the films/images and agree with the above interpretation. Electronically signed by: Richi Dyer M.D. [id number] 10-Apr-2000 07:16 Albert Vanessa M.D. IM CT PROCEDURES Final Result from Last 3 Months or Most Recently Relevant to Health Maintenance Insurance MEDICARE BLUE [place] [employer] [facility] Care Teams Shell Molder Relationship Specialty Start Date End Date Guillermo Marcelo M.D. [address] [place] [address] PCP - General Family Medicine 07/30/23 [facility] 09/02/23
--- OUTSIDE RECORDS SUMMARY | 2024-04-11 10:01 | XMS_ITS | Encounter Summary ---
Author Organization [facility] Address [address] [place] [address] Care Team Providers Care Study Abroad Coordinator Name Role Phone Guillermo Marcelo M.D. Primary Care Provider [phone] Encounter Details Date Type Department Care Team (Late st Contact Info) Description 09/03/2016 Historical Ophthalmology RST OPH Urban Garza M.D. [address] [address] Social History Tobacco Use Types Packs/Day Years Used Date Smoking Tobacco: Never Assessed Sex and Gender Information Value Date Recorded Sex Assigned at Male 10/15/2017 7:21 PM CDT Legal Sex Male 2:00 AM SUPERVISOR PIPE FINISHING Gender Identity Male 10/15/2017 7:21 PM CDT [...] Ankylosing spondylitis CDM Reports - EYEGEN Id: [id number] Status: Fnl documented in this encounter Plan of Treatment Upcoming Encounters Date Type Department Care Team (Latest Contact Info) Description 05/04/2024 10:00 AM SUPERVISOR PIPE FINISHING Comprehensive Visit Department of Sleep Medicine in [address] [phone] Leighton Schmitz M.D. [address] [place] [phone] Discharge Disposition: Home or Self Care documented [...] Total Score: 2 03/27/20 16 8:21 AM SUPERVISOR PIPE FINISHING documented as of this encounter Care Teams Study Abroad Coordinator Relationship Specialty Start Date End Date Guillermo Marcelo M.D. NPCassidy: [phone] [place] [address] PCP - General Family Medicine 07/30/23 [facility] 09/02/23 documented as of this encounter
--- OUTSIDE RECORDS SUMMARY | 2024-04-11 10:01 | XMS_ITS | Encounter Summary ---
Author Organization [facility] Address [address] [place] [address] Care Team Providers Care Mission Manager Name Role Phone Guillermo Marcelo M.D. Primary Care Provider [phone] Encounter Details Date Type Department Care Team (Late st Contact Info) Description 02/17/2024 Orders Only Department of Ophthalmology in [place], [place] [address] [place] [address] Sirena Lr, C.O.A. [address] [place] [phone] Social History Tobacco Use Types Packs/Day Years [...] How often do you attend chur or latter day services? More than 4 times per year 09/19/2021 Do you belong to any clubs o r organizations such as mormonism groups, unions, fraternal or athletic groups, or [...] PHQ-2 Score 0 08/31/2023 [facility] of Occupat ional Health - Occupational [...] your living situation today? I have a [facility] place to live 12/08/2022 Education Answer Date Recorded What is the highest level of school you have completed or the highest degree you have received? 12th grade 09/19/2021 Sex and Gender Information Value Date Recorded Sex Assigned at Male 10/15/2017 7:21 PM CDT Legal Sex Male 2:00 AM FOUR CORNER STAYER MACHINE OPERATOR Gender Identity Male 10/15/2017 7:21 PM CDT Sexual Orientation Straight 10/15/2017 7: 21 PM CDT documented as of this encounter Plan of Treatment Upcoming Encounters Date Type Department Care Team (Latest Contact Info) Description 05/04/2024 10:00 AM FOUR CORNER STAYER MACHINE OPERATOR Comprehensive Visit Department of Sleep Medicine in [place], [place] [address] [place] [phone] Leighton Schmitz M.D. [address] [place] [phone] Discharge Disposition: Home or Self Care documented as of this encounter Visit Diagnoses Not on filedocumented in this encounter Additional Health Concerns Assessment Noted Time PHQ-9 Depression Total Score: 2 06/11/19 18 1:22 PM FOUR CORNER STAYER MACHINE OPERATOR documented as of this encounter Care Teams Mission Manager Relationship Specialty Start Date End Date Guillermo Marcelo M.D. [facility] [place] [address] PCP - General Family Medicine 07/30/23 [facility] 09/02/23 documented as of this encounter
--- OUTSIDE RECORDS SUMMARY | 2024-04-11 10:01 | XMS_ITS | Encounter Summary ---
Author Organization [facility] Address [address] [place] [address] Care Team Providers Care Insurance Follow Up Specialist Name Role Phone Guillermo Marcelo M.D. Primary Care Provider Encounter Details Date Type Department Care Team (Late st Contact Info) Description 08/18/2016 Historical Ophthalmology RST OPH Urban Garza M.D. [address] [address] Social History Tobacco Use Types Packs/Day Years Used Date Smoking Tobacco: Never Assessed Sex and Gender Information Value Date Recorded Sex Assigned at Male 10/15/2017 7:21 PM CDT Legal Sex Male 2:00 AM GLASS TINTER Gender Identity Male 10/15/2017 7:21 PM CDT [...] Ankylosing spondylitis CDM Reports - EYEGEN Id: [id number] Status: Fnl documented in this encounter Plan of Treatment Upcoming Encounters Date Type Department Care Team (Latest Contact Info) Description 05/04/2024 10:00 AM GLASS TINTER Comprehensive Visit Department of Sleep Medicine in [address] [phone] Leighton Schmitz M.D. [address] [place] [phone] Discharge Disposition: Home or Self Care documented [...] Total Score: 2 03/27/20 16 8:21 AM GLASS TINTER documented as of this encounter Care Teams Insurance Follow Up Specialist Relationship Specialty Start Date End Date Guillermo Marcelo M.D. [address] [place] [address] PCP - General Family Medicine 07/30/23 [facility] 09/02/23 documented as of this encounter
--- OUTSIDE RECORDS SUMMARY | 2024-04-11 10:01 | XMS_ITS ---
Author Organization [facility] Address [address] [place] [address] Care Team Providers Care Data Services Developer Name Role Phone Unavailable Unavailable Unavailable Surgery Details Not on file Complications Check Surgery Details section. Procedure Estimated Blood Loss Check Surgery Details section. Procedure Findings Check Surgery Details section. Procedure Specimens Taken Check Surgery Details section.
--- OUTSIDE RECORDS SUMMARY | 2024-04-11 10:01 | XMS_ITS | Encounter Summary ---
Author Organization [facility] Address [address] [place] [address] Care Team Providers Care Hose Mender Name Role Phone Guillermo Marcelo M.D. Primary Care Provider Encounter Details Date Type Department Care Team (Late st Contact Info) Description 02/04/2017 Historical Ophthalmology RST OPH Urban Garza M.D. [address] [address] Social History Tobacco Use Types Packs/Day Years Used Date Smoking Tobacco: Never Assessed Sex and Gender Information Value Date Recorded Sex Assigned at Male 10/15/2017 7:21 PM CDT Legal Sex Male 2:00 AM ACADEMIC SUPPORT SPECIALIST Gender Identity Male 10/15/2017 7:21 PM [...] Ankylosing spondylitis CDM Reports - EYEGEN Id: [id number] Status: Fnl documented in this encounter Plan of Treatment Upcoming Encounters Date Type Department Care Team (Latest Contact Info) Description 05/04/2024 10:00 AM ACADEMIC SUPPORT SPECIALIST Comprehensive Visit Department of Sleep Medicine in [address] [phone] Leighton Schmitz M.D. [address] [place] [phone] Discharge Disposition: Home or Self Care documented [...] Total Score: 2 03/27/20 16 8:21 AM ACADEMIC SUPPORT SPECIALIST documented as of this encounter Care Teams Hose Mender Relationship Specialty Start Date End Date Guillermo Marcelo M.D. [address] [place] [phone] PCP - General Family Medicine 07/30/23 [facility] 09/02/23 documented as of this encounter
--- OUTSIDE RECORDS SUMMARY | 2024-04-11 10:02 | XMS_ITS | Encounter Summary ---
Author Organization [facility] Address [address] [address] [place] [address] Care Team Providers Care Wrister Name Role Phone Guillermo Marcelo MD Primary Care Provider [phone] Encounter Details Date Type Department Care Team (Late st Contact Info) Description 01/25/2024 Orders Only [facility] [address] [place] [phone] Chronic kidney disease, not otherwise specified Social [...] st Contact Info) Description 06/22/2024 10:40 AM SIDE DOOR WORKER Office Visit [facility] [address] [place] [phone] Rai Feldman MD [address] [place] [address] documented as of this encounter Visit Diagnoses Diagnosis Chronic kidney disease, not otherwise specified documented in this encounter Care Teams Wrister Relationship Specialty Start Date End Date Guillermo Marcelo MD [address] [place] [address] PCP - General Family Medicine 01/29/24 documented as of this encounter
--- OUTSIDE RECORDS SUMMARY | 2024-04-11 10:02 | XMS_ITS | Encounter Summary ---
Author Organization [facility] Address [address] [place] [address] Care Team Providers Care Linotype Machinist Name Role Phone Guillermo Marcelo M.D. Primary Care Provider [phone] Encounter Details Date Type Department Care Team (Late st Contact Info) Description 02/01/2016 Historical Ophthalmology RST OPH Urban Garza M.D. [address] [address] Social History Tobacco Use Types Packs/Day Years Used Date Smoking Tobacco: Never Assessed Sex and Gender Information Value Date Recorded Sex Assigned at Male 10/15/2017 7:21 PM CDT Legal Sex Male 2:00 AM FLATTENING MACHINE OPERATOR Gender Identity Male 10/15/2017 7:21 [...] Ankylosing spondylitis CDM Reports - EYEGEN Id: [id number] Status: Fnl documented in this encounter Plan of Treatment Upcoming Encounters Date Type Department Care Team (Latest Contact Info) Description 05/04/2024 10:00 AM FLATTENING MACHINE OPERATOR Comprehensive Visit Department of Sleep Medicine in [place], [place] [address] [place] [phone] Leighton Schmitz M.D. [address] [place] [phone] Discharge Disposition: Home or Self Care documented [...] documented as of this encounter Care Teams Linotype Machinist Relationship Specialty Start Date End Date Guillermo Marcelo M.D. [address] [place], [place] [address] [address] PCP - General Family Medicine 07/30/23 [facility] 09/02/23 documented as of this encounter
--- OUTSIDE RECORDS SUMMARY | 2024-04-11 10:02 | XMS_ITS | Encounter Summary ---
Author Organization [facility] Address [address] [place] [address] Care Team Providers Care Horse Trainer Name Role Phone Guillermo Marcelo M.D. Primary Care Provider Encounter Details Date Type Department Care Team (Late st Contact Info) Description 01/28/2016 Historical Ophthalmology RST OPH Urban Garza M.D. [address] [address] Social History Tobacco Use Types Packs/Day Years Used Date Smoking Tobacco: Never Assessed Sex and Gender Information Value Date Recorded Sex Assigned at Male 10/15/2017 7:21 PM CDT Legal Sex Male 2:00 AM VEHICLE DELIVERY WORKER Gender Identity Male 10/15/2017 7:21 PM CDT [...] Ankylosing spondylitis CDM Reports - EYEGEN Id: [id number] Status: Fnl documented in this encounter Plan of Treatment Upcoming Encounters Date Type Department Care Team (Latest Contact Info) Description 05/04/2024 10:00 AM VEHICLE DELIVERY WORKER Comprehensive Visit Department of Sleep Medicine in [address] [phone] Leighton Schmitz M.D. [address] [place] [phone] Discharge Disposition: Home or Self Care documented [...] documented as of this encounter Care Teams Horse Trainer Relationship Specialty Start Date End Date Guillermo Marcelo M.D. [address] [place] [address] PCP - General Family Medicine 07/30/23 [facility] 09/02/23 documented as of this encounter
--- OUTSIDE RECORDS SUMMARY | 2024-04-11 10:02 | XMS_ITS | Encounter Summary ---
Author Organization [facility] Address [address] [facility] [address] [place] [address] Care Team Providers Care Hoop Punch And Coiler Operator Helper Name Role Phone Unavailable Primary Care Provider Unavailabl e Encounter Details Date Type Department Care Team (Late st Contact Info) Description 01/22/2024 Documentation Only [facility] [address] [place] [phone] No, Pcp Social History Tobacco Use Types [...] st Contact Info) Description 06/22/2024 10:40 AM SSRS DEVELOPER Office Visit [facility] [address] [place] [phone] Rai Feldman MD [address] [place] [address] documented as of this encounter Visit Diagnoses Not on filedocumented in this encounter
--- OUTSIDE RECORDS SUMMARY | 2024-04-11 10:02 | XMS_ITS | Encounter Summary ---
Author Organization [facility] Address [address] [place] [address] Care Team Providers Care Milliner Helper Name Role Phone Guillermo Marcelo M.D. Primary Care Provider Encounter Details Date Type Department Care Team (Late st Contact Info) Description 07/29/2016 Historical Ophthalmology RST OPH Urban Garza M.D. [address] [address] Social History Tobacco Use Types Packs/Day Years Used Date Smoking Tobacco: Never Assessed Sex and Gender Information Value Date Recorded Sex Assigned at Male 10/15/2017 7:21 PM CDT Legal Sex Male 2:00 AM SUPERVISOR OVENS Gender Identity Male 10/15/2017 7:21 PM CDT [...] Ankylosing spondylitis CDM Reports - EYEGEN Id: [id number] Status: Fnl documented in this encounter Plan of Treatment Upcoming Encounters Date Type Department Care Team (Latest Contact Info) Description 05/04/2024 10:00 AM SUPERVISOR OVENS Comprehensive Visit Department of Sleep Medicine in [address] [phone] Leighton Schmitz M.D. [address] [place] [phone] Discharge Disposition: Home or Self Care documented [...] Score: 2 03/27/20 16 8:21 AM SUPERVISOR OVENS documented as of this encounter Care Teams Milliner Helper Relationship Specialty Start Date End Date Guillermo Marcelo [place] [address] PCP - General Family Medicine 07/30/23 [facility] 09/02/23 documented as of this encounter
--- OUTSIDE RECORDS SUMMARY | 2024-04-11 10:02 | XMS_ITS | Encounter Summary ---
Author Organization [facility] Address [address] [place] [address] Care Team Providers Care Tobacco Wetter Name Role Phone Guillermo Marcelo M.D. Primary Care Provider [phone] Encounter Details Date Type Department Care Team (Late st Contact Info) Description 03/25/2016 Historical Ophthalmology RST OPH Urban Garza M.D. [address] [address] Social History Tobacco Use Types Packs/Day Years Used Date Smoking Tobacco: Never Assessed Sex and Gender Information Value Date Recorded Sex Assigned at Male 10/15/2017 7:21 PM CDT Legal Sex Male 2:00 AM SENIOR PLANNING ANALYST Gender Identity Male 10/15/2017 7:21 PM CDT [...] Ankylosing spondylitis CDM Reports - EYEGEN Id: [id number] Status: Fnl documented in this encounter Plan of Treatment Upcoming Encounters Date Type Department Care Team (Latest Contact Info) Description 05/04/2024 10:00 AM SENIOR PLANNING ANALYST Comprehensive Visit Department of Sleep Medicine in [place], [place] [address] [place] [phone] Leighton Schmitz M.D. [address] [place] [phone] Discharge Disposition: Home or Self Care documented [...] documented as of this encounter Care Teams Tobacco Wetter Relationship Specialty Start Date End Date Guillermo Marcelo M.D. [address] [place] [phone] PCP - General Family Medicine 07/30/23 [facility] 09/02/23 documented as of this encounter
--- OUTSIDE RECORDS SUMMARY | 2024-04-11 10:02 | XMS_ITS | Clinical Summary ---
Author Organization [facility] Address [address] [facility] [place] [address] Phone Care Team Providers Care Business Attorney Name Role Phone Guillermo Marcelo MD Primary Care Provider [phone] Allergies No known active allergies Medications Docusate Sodium (DSS) 100 MG capsule Take 100 mg by mouth 2 (two) times a day if needed 10/11/2023 Active Pembrolizumab 100 MG/4ML solution Infuse 200 mg into a venous catheter 02/21/2024 Active atorvastatin (LIPITOR) 10 MG tablet Take 10 mg by mouth 1 (one) time each day 12/31/2023 Active acetaminophen (TYLENOL) 500 MG tablet Take 1,000 mg by mouth every 6 (six) hours if needed Active polyethylene glycol (GLYCOLAX) 17 g packet Take 17 g by mouth 1 (one) time each day if needed 10/18/2023 Active Active Problems Problem Noted Date Diagnosed Date Chronic kidney disease 01/21/2024 Encounters Date Type Department Care Team Description 04/08/2024 Telephone [facility] [address] [place] [address] Jodi Andres RN 03/04/2024 Office Communication [facility] [address] [place] [address] Jodi Andres, FILIBERTO 02/18/2024 9:00 AM CDT Office Visit [facility] [address] [place] [address] Rai Feldman MD Chronic kidney disease stage 3A (HCC) (Primary Dx); Malignant neoplasm of right kidney, except renal pelvis (HCC); Hypertension 01/25/2024 Orders Only [facility] [place] [phone] Chronic kidney disease, not otherwise specified 01/25/2024 Documentation Only [facility] [address] [facility] [place] [phone] No, Pcp 01/25/2024 Transcribe Orders [facility] [address] Banks [facility] [place] [phone] No, Pcp Chronic kidney disease, not otherwise specified (Primary Dx) 01/22/2024 Office Communication [facility] [address] Banks [facility] [place] [phone] No, Pcp 01/22/2024 Documentation Only [facility] [address] Banks [facility] [place] [phone] No, Pcp from Last 3 Months Immunizations [...] st Contact Info) Description 06/22/2024 10:40 AM SILVERLIGHT DEVELOPER Office Visit [facility] [address] [place] [phone] Rai Feldman MD [address] [place], [place] [address] Health Maintenance Due Date Last Done Comments [...] PANEL (BMP) (EXTERNAL LAB ENTRY) Routine 01/13/2024 from Last 3 Months Results * (ABNORMAL) Cystatin C with Estimated Glomerular Filtration Rate (eGFR), Serum (02/18/2024 8:30 AM CDT) Cystatin C 1.87(H) 0.52 - 1.16 mg/L See order comments eGFR 33(L) > OR = 60 mL/min/1.73 m2 See order comments 02/18/2024 8:30 AM CDT 02/18/2024 8:31 AM CDT Narrative Resulting Agency Comment Performing Organization Information: Site ID: [place] Name: [facility] Address: [address] [address] Director: Teresa Pradhan MD us Rai Feldman MD LAB BLOOD ORDERABLES Final Resul t [facility] See order comments [place] [address] * (ABNORMAL) Urine Albumin / Creatinine Ratio (02/18/2024 8:30 AM CDT) Creatinine, Ur 100 20 - 320 mg/dL See order comments Urine Microalbumin 7.4 See Note: mg/dL See order comments Comment: Reference Range: Reference Range Not established Microalb/Creat Ratio 74(H) <30 mg/g creat See order comments Comment: The ADA defines abnormalities in albumin excretion as follows: Albuminuria Category Result (mg/g creatinine) Normal to Mildly increased <30 Moderately increased 30-299 Severely increased > OR = 300 The ADA recommends that at least two of three specimens collected within a 3-6 month period be abnormal before considering a patient to be within a diagnostic category. Urine (Urine, Clean Catch) 02/18/2024 8:30 AM CDT 02/18/2024 8:31 AM CDT Narrative Resulting Agency Comment Performing Organization Information: Site ID: Name: [facility] Address: [address] [place] [phone] Director: Kofi Dubon us Rai Feldman MD LAB URINE ORDERABLES Final Resul t Angella Joy [facility] See order comments [place] [address] * (ABNORMAL) Urinalysis with microscopic (02/18/2024 8:30 AM CDT) Color, Urine YELLOW YELLOW See ord er comments Appearance Urine CLEAR CLEAR See order comments Specific [place], UA 1.015 1.001 - 1.035 See order [...] Narrative Resulting Agency Comment Performing Organization Information: Site ID: [id number] Name: [facility] Address: [address] [place] [phone] Director: Kofi Dubon us Rai Feldman MD LAB URINE ORDERABLES Final Resul t Performing Organization Address [facility] de Phone Number ConsumrL See order comments [place] [address] * Hemoglobin (02/18/2024 8:30 AM CDT) Hemoglobin 14.8 13.2 - 17.1 g/dL See order comments Blood (Blood, Venous) 02/18/2024 8:30 AM CDT 02/18/2024 8:31 AM CDT Narrative Resulting Agency Comment Performing Organization Information: Site ID: JANICE Name: [facility] Address: [address] [place] [phone] Director: Kofi Dubon us Rai Feldman MD LAB BLOOD ORDERABLES Final Resul t Performing Organization Address [facility] de Phone Number ConsumrL See order comments [place] [address] * PTH, Intact (02/18/2024 8:30 AM CDT) Parathyroid Hormone, Intact 34 16 - 77 pg/mL See order comments Comment: Interpretive Guide Intact PTH Calcium ------- Normal Parathyroid Normal Normal Hypoparathyroidism Low or Low Normal Low Hyperparathyroidism Primary Normal or High High Secondary High Normal or Low Tertiary High High Non-Parathyroid Hypercalcemia Low or Low Normal High Blood (Blood, Venous) 02/18/2024 8:30 AM CDT 02/18/2024 8:31 AM CDT Narrative Resulting Agency Comment Performing Organization Information: Site ID: JANICE [facility] Address: [address] [place] [phone] Director: Kofi Dubon Rai Feldman MD LAB BLOOD ORDERABLES Final Resul t Performing Organization Address [facility] de Phone Number [facility] See order comments [place] [address] * (ABNORMAL) Renal Function Panel (02/18/2024 8:30 AM CDT) Glucose 91 65 - 99 mg/dL See order comments Comment: Fasting reference interval BUN 24 7 - [...] Narrative Resulting Agency Comment Performing Organization Information: Site ID: [place] Name: [facility] Address: [address] [place] [phone] Director: Kofi Dubon us Rai Feldman MD LAB BLOOD ORDERABLES Final Resul t Performing Organization Address [facility] de Phone Number [facility] See order comments [place] [address] * (ABNORMAL) Basic Metabolic Panel (BMP) (01/13/2024) [...] L (NON-INTERFAC ED LABS) 01/13/2024 Historical Provider LAB BLOOD ORDERABLES Gricelda l [...] (NON-INTERFAC ED LABS) Blood 01/13/2024 Historical Provider LAB BLOOD ORDERABLES Edit ed Result - Final PRINT/EXTERNAL (NON-INTERFACED LABS) from Last 3 Months Insurance MEDICARE [facility] Care Teams Business Attorney Relationship Specialty Start Date End Date Guillermo Marcelo MD [address] [place] [phone] PCP - General Family Medicine 01/29/24
--- OUTSIDE RECORDS SUMMARY | 2024-04-11 10:02 | XMS_ITS | Encounter Summary ---
Author Organization [facility] Address [address] [place] [address] Care Team Providers Care Airworthiness Safety Inspector Name Role Phone Guillermo Marcelo M.D. Primary Care Provider Encounter Details Date Type Department Care Team (Late st Contact Info) Description 03/05/2016 Historical Ophthalmology RST OPH Urban Garza M.D. [address] [address] Social History Tobacco Use Types Packs/Day Years Used Date Smoking Tobacco: Never Assessed Sex and Gender Information Value Date Recorded Sex Assigned at Male 10/15/2017 7:21 PM CDT Legal Sex Male 2:00 AM DIRECTOR OF HOUSING Gender Identity Male 10/15/2017 7:21 PM CDT [...] Ankylosing spondylitis CDM Reports - EYEGEN Id: [id number] Status: Fnl documented in this encounter Plan of Treatment Upcoming Encounters Date Type Department Care Team (Latest Contact Info) Description 05/04/2024 10:00 AM DIRECTOR OF HOUSING Comprehensive Visit Department of Sleep Medicine in [place] [address] [place] [address] Leighton Schmitz M.D. [address] [place] [phone] Discharge Disposition: Home or Self Care [...] documented as of this encounter Care Teams Airworthiness Safety Inspector Relationship Specialty Start Date End Date Guillermo Marcelo M.D. [address] [place] [address] PCP - General Family Medicine 07/30/23 [facility] 09/02/23 documented as of this encounter
--- OUTSIDE RECORDS SUMMARY | 2024-04-11 10:02 | XMS_ITS | Encounter Summary ---
Author Organization [facility] Address [address] [place] [address] Care Team Providers Care Weathercaster Name Role Phone Guillermo Marcelo MD Primary Care Provider [phone] Encounter Details Date Type Department Care Team (Late st Contact Info) Description 03/04/2024 Office Communication [facility] [address] [facility] [address] [place] [address] Jodi Andres, RN [address] [place] [address] Social History Tobacco Use Types [...] st Contact Info) Description 06/22/2024 10:40 AM MANAGER BEVERAGE Office Visit [facility] [address] [place] [address] Rai Feldman MD [address] [place] [address] documented as of this encounter Visit Diagnoses Not on filedocumented in this encounter Care Teams Weathercaster Relationship Specialty Start Date End Date Guillermo Marcelo MD [address] [place] [address] PCP - General Family Medicine 01/29/24 documented as of this encounter
--- OUTSIDE RECORDS SUMMARY | 2024-04-11 10:02 | XMS_ITS | Encounter Summary ---
Author Organization [facility] Address [address] [place] [address] Care Team Providers Care Awnings Mechanic Name Role Phone Guillermo Marcelo MD Primary Care Provider [phone] Encounter Details Date Type Department Care Team (Late st Contact Info) Description 04/08/2024 Telephone [facility] [place] [address] [facility] [address] [place] [address] Jodi Andres, RN [address] [place] [address] Social History Tobacco Use Types [...] Telephone Encounter - Jodi Andres RN - 04/08/2024 3:08 PM CST Pt states he has [address] Feldman to review and questions how to get the info to Dr. Feldman. Advised that he can mail it to the office, upload to [employer] or give to me over the phone. Ptis going to try to upload it to [employer]. If he has issues, he will mail it to the office. documented in this encounter Plan of Treatment Upcoming Encounters Date Type Department Care Team (Late st Contact Info) Description 06/22/2024 10:40 AM WESTERN PHILOSOPHY PROFESSOR Office Visit [facility] [address] [place] [phone] Rai Feldman MD [address] [place] [address] documented as of this encounter Visit Diagnoses Not on filedocumented in this encounter Care Teams Awnings Mechanic Relationship Specialty Start Date End Date Guillermo Marcelo MD [address] [place] [address] PCP - General Family Medicine 01/29/24 documented as of this encounter
--- OUTSIDE RECORDS SUMMARY | 2024-04-11 10:02 | XMS_ITS | Encounter Summary ---
Author Organization [facility] [place] Address [address] [facility] [address] [place] [address] Care Team Providers Care Blood Bank Credit Clerk Name Role Phone Guillermo Marcelo MD Primary Care Provider [phone] Reason for Visit * Reason Comments CKD New Patient * Consultation (Routine) - Closed Specialty Diagnoses / Procedures Referred By Contac t Referred To Contact Nephrology Diagnoses Chronic kidney disease, not otherwise specified Ziyad Barakat MD PhD [facility] [address] [address] Phone: tel: fax: Rai Feldman MD [address] [employer] [facility] [address] [place] [address] Phone: tel: fax: Referral ID Status Reason Start Date Expiration Date V isits Requested Visits Authorized [id number] Closed Specialty Services Required 01/25/2024 01/24/2025 1 1 Encounter Details Date Type Department Care Team (Late st Contact Info) Description 02/18/2024 9:00 AM CDT Office Visit [facility] [place] [address] [place] [phone] Rai Feldman MD [address] [employer] [facility] [address] [place], [place] [address] Chronic kidney disease stage 3A (HCC) (Primary [...] send me the readings. Fax number is [phone] [facility] with [...] than or equal to 114.) [facility] Home Blood Pressure Diary Name: Fredo Mcdonald : 1955 DATE TIME AM BP PULSE TIME PM BP PULSE COMMENTS: Weight up/down, how you feel, etc At [facility], our goal is to work with you [...] all of us at [facility] documented in this encounter Progress Notes * Rai Feldman MD - 02/18/2024 9:00 AM CDT Images from the original note were not included. Patient: Fredo Mcdonald Date of : 1955, 68 y.o. male Chart: [id number] PCP: Guillermo Marcelo MD Date of Service: [...] [facility]. He had a bad urinary tract infection in August which led to a CT scan which diagnosed an asymptomatic large right renal mass which ended up being a renal cell carcinoma. He ultimately underwent a right koy[place] nephrectomy and simultaneous umbilical hernia repair by Dr. Ziyad Barakat in September 2023 at [facility]. Nephrology was not consulted on him during that hospitalization.He did have what he describes as significant low blood pressure, relook surgery with a bleeder that was corrected. He ended up staying at [place] for about 5 days but no residual [...] cure and now [facility] his [facility]rolog[facility] and they are doing routine CT imaging and ideally noncontrast to avoid nephrotoxicity. 4. Bone health. Will check intact PTH 25-hydroxy vitamin D calcium and phosphorus since he does have stage IIIa CKD. Return in about 6 months (around 08/18/2024) for RecheckFrancia. Rai Feldman MD [facility], Active Problems Patient Active Problem List Diagnosis [...] st Contact Info) Description 06/22/2024 10:40 AM BOWLING PIN REFINISHER Office Visit [facility] [place] [address] [place] [phone] Rai Feldman MD [address] [place] [address] documented as of this encounter Procedures Procedure [...] Performing Organization Information: Site ID: CB Name: [facility] Address: [address] [place] [phone] Director: Kofi Dubon us Rai Feldman MD LAB URINE ORDERABLES Final Resul t DALY WDL See order comments [place] [address] * (ABNORMAL) Urinalysis with microscopic (02/18/2024 8:30 AM CDT) Color, Urine YELLOW YELLOW See ord er comments Appearance Urine CLEAR CLEAR See order comments Specific [place], UA 1.015 1.001 - 1.035 See order [...] Performing Organization Information: Site ID: CB Name: [facility] Address: [address] [place] [phone] Director: Kofi Dubon us Rai Feldman MD LAB URINE ORDERABLES Final Resul t [facility]ST WDL See order comments [place] [address] * (ABNORMAL) Cystatin C with Estimated Glomerular Filtration Rate (eGFR), Serum (02/18/2024 8:30 AM CDT) Cystatin C 1.87(H) 0.52 - 1.16 mg/L See order comments eGFR 33(L) > OR = 60 mL/min/1.73 m2 See order comments 02/18/2024 8:30 AM CDT 02/18/2024 8:31 AM CDT Narrative Resulting Agency Comment Performing Organization Information: Site ID: [place] Name: [facility] Address: [address] [place] [address] Director: Teresa Pradhan MD Rai Feldman MD LAB BLOOD ORDERABLES Final Resul t Performing Organization Address City/[facility] Co de Phone Number QUEST [facility] See order comments [place] [address] * PTH, Intact (02/18/2024 8:30 AM CDT) [...] Comment Performing Organization Information: Site ID: Name: [facility] Address: [address] [place] [phone] Director: Kofi Dubon Rai Feldman MD LAB BLOOD ORDERABLES Final Resul t Performing Organization Address [facility] de Phone Number Jingshi [facility] WDL See order comments [place] [address] * Hemoglobin (02/18/2024 8:30 AM CDT) Hemoglobin 14.8 13.2 - 17.1 g/dL See order comments Blood (Blood, Venous) 02/18/2024 8:30 AM CDT 02/18/2024 8:31 AM CDT Narrative Resulting Agency Comment Performing Organization Information: Site ID: Name: [facility] Address: [address] [place] [phone] Director: Kofi Dubon us Rai Feldman MD LAB BLOOD ORDERABLES Final Resul t Performing Organization Address [facility] de Phone Number [employer] WDL See order comments [place] [address] * (ABNORMAL) Renal Function Panel (02/18/2024 8:30 [...] Comment Performing Organization Information: Site ID: Name: [facility] Address: [address] [place] [phone] Director: Kofi Dubon us Rai Feldman MD LAB BLOOD ORDERABLES Final Resul t [facility] See order comments [place] [address] * (ABNORMAL) Basic Metabolic Panel (BMP) (01/13/2024) [...] ORDERABLES Gricelda l Result Performing Organization Address [facility]/ZIP Co de Phone Number PRINT/EXTERNAL (NON-INTERFACED LABS) * (ABNORMAL) CBC (Includes Diff/Plt) (External Lab) (01/13/2024) Pathologist [facility] WBC 3.02(L) K/uL PRINT/EXTE RNA L (NON-INTERFAC [...] ed Result - Final Performing Organization Address [facility]/State/ZIP Co de Phone Number PRINT/EXTERNAL (NON-INTERFACED LABS) * Lipid Panel (12/23/2023) Pathologist [facility] Cholesterol, Total 162 P RINT/EXTERNA L (NON-INTERFAC ED LABS) Triglycerides 81 PRINT/ EXTERNA L (NON-INTERFAC ED LABS) HDL 45 mg/dL PRINT/EXTE RNA L (NON-INTERFAC ED LABS) LDL-Calculated 102 PRINT /EXTERNA L (NON-INTERFAC ED LABS) Non HDL Cholesterol 117 PRINT/EXTERNA L (NON-INTERFAC ED LABS) Blood 12/23/2023 [facility] Provider MD LAB BLOOD ORDERABLES Gricelda l Result Performing Organization Address [facility] de Phone Number PRINT/EXTERNAL (NON-INTERFACED LABS) * (ABNORMAL) ALT EXT LABS (11/18/2023) Creatinine 1.75(H) 0.60 - 1.30 mg/dL PRINT/EXTERNAL (NON-INTERFACE D LABS) eGFR 41(L) PRINT/EXTE RNAL (NON-INTERFACE D LABS) 11/18/2023 [facility] Provider MD LAB BLOOD ORDERABLES Gricelda l Result Performing Organization Address [facility] de Phone Number PRINT/EXTERNAL (NON-INTERFACED LABS) * (ABNORMAL) Basic Metabolic Panel (BMP) (10/23/2023) Sodium 138 mEq/L [facility] Potassium 4.9 mEq/L [facility] Chloride 102 [facility] Carbon Dioxide 27 mmol/L [facility] Calcium 9.1 mg/dL [facility] BUN 25(H) mg/dL [facility] Creatinine 1.48(H) mg/dL [facility] Glucose 93 mg/dL [facility] eGFR 51(L) [facility] Anion Gap 9 [facility] 10/23/2023 [facility] Provider MD LAB BLOOD ORDERABLES Gricelda l Result Performing Organization Address [facility] de Phone Number [facility] * Urinalysis (09/13/2023) Color, Urine Daniella PRINT/E XTERNA L (NON-INTERFAC ED LABS) Clarity, Urine Cloudy ! PRINT /EXTERNA L (NON-INTERFAC ED LABS) Urine Specific [place] >=1.030 PRINT/EXTERNA L (NON-INTERFAC ED LABS) pH [...] (NON-INTERFAC ED LABS) Urine 09/13/2023 Historical Provider LAB URINE ORDERABLES Gricelda l Result Performing Organization Address [facility] Co de Phone Number PRINT/EXTERNAL (NON-INTERFACED LABS) * ALT EXT LABS (06/11/2011) Creatinine 1.00 0.60 - 1.30 mg/dL PRINT/EXTERNAL (NON-INTERFACE D LABS) eGFR Non-Afr Honduran >60 PRINT/EXTERNAL (NON-INTERFACE D LABS) eGFR >60 PRINT/EXTERNAL (NON-INTERFACE D LABS) 06/11/2011 Historical Provider LAB BLOOD ORDERABLES Gricelda l Result Performing Organization Address [facility]/ZIP Co de Phone Number PRINT/EXTERNAL (NON-INTERFACED LABS) documented in this encounter Visit Diagnoses Diagnosis Chronic kidney disease stage 3A (HCC)- Primary Malignant neoplasm of right kidney, except renal pelvis (HCC) Hypertension documented in this encounter Care Teams Blood Bank Credit Clerk Relationship Specialty Start Date End Date Guillermo Marcelo MD [address] [place] [address] PCP - General Family Medicine 01/29/24 documented as of this encounter
--- OUTSIDE RECORDS SUMMARY | 2024-04-11 10:02 | XMS_ITS | Encounter Summary ---
Author Organization [facility] [place] Address [address] [facility] [address] [place] [address] Care Team Providers Care School Inspector Name Role Phone Unavailable Primary Care Provider Unavailabl e Encounter Details Date Type Department Care Team (Late st Contact Info) Description 01/25/2024 Documentation Only [facility] [place] [address] [place] [phone] No, Pcp Social History Tobacco Use Types [...] st Contact Info) Description 06/22/2024 10:40 AM SUPERVISORY IT SPECIALIST Office Visit [facility] [address] [place] [phone] Rai Feldman MD [address] [place] [address] documented as of this encounter Visit Diagnoses Not on filedocumented in this encounter
--- OUTSIDE RECORDS SUMMARY | 2024-04-11 10:02 | XMS_ITS | Encounter Summary ---
Author Organization [facility] Address [address] [place] [address] Care Team Providers Care Mica Patcher Name Role Phone Guillermo Marcelo M.D. Primary Care Provider [phone] Encounter Details Date Type Department Care Team (Late st Contact Info) Description 01/23/2016 Historical Ophthalmology [facility] Urban Garza M.D. [address] [address] Social History Tobacco Use Types Packs/Day Years Used Date Smoking Tobacco: Never Assessed Sex and Gender Information Value Date Recorded Sex Assigned at Male 10/15/2017 7:21 PM CDT Legal Sex Male 2:00 AM DONATIONS ATTENDANT Gender Identity Male 10/15/2017 7:21 PM [...] #3 CME CDM Reports - EYEGEN Id: [id number] Status: Fnl documented in this encounter Plan of Treatment Upcoming Encounters Date Type Department Care Team (Latest Contact Info) Description 05/04/2024 10:00 AM DONATIONS ATTENDANT Comprehensive Visit Department of Sleep Medicine in [address] [phone] Leighton Schmitz M.D. [address] [place] [address] [place] [address] Discharge Disposition: Home or Self Care documented [...] documented as of this encounter Care Teams Mica Patcher Relationship Specialty Start Date End Date Guillermo Marcelo M.D. [address] [place] [address] PCP - General Family Medicine 07/30/23 [facility] 09/02/23 documented as of this encounter
--- OUTSIDE RECORDS SUMMARY | 2024-04-11 10:02 | XMS_ITS | Encounter Summary ---
Author Organization [facility] Address [address] [place] [address] Care Team Providers Care Refractory Bricklayer Name Role Phone Guillermo Marcelo M.D. Primary Care Provider [phone] Encounter Details Date Type Department Care Team (Late st Contact Info) Description 02/07/2016 Historical Ophthalmology [facility] Urban Garza M.D. [address] [address] Social History Tobacco Use Types Packs/Day Years Used Date Smoking Tobacco: Never Assessed Sex and Gender Information Value Date Recorded Sex Assigned at Male 10/15/2017 7:21 PM CDT Legal Sex Male 2:00 AM PASTRYCOOK'S ASSISTANT Gender Identity Male 10/15/2017 7:21 PM [...] Ankylosing spondylitis CDM Reports - EYEGEN Id: [id number] Status: Fnl documented in this encounter Plan of Treatment Upcoming Encounters Date Type Department Care Team (Latest Contact Info) Description 05/04/2024 10:00 AM PASTRYCOOK'S ASSISTANT Comprehensive Visit Department of Sleep Medicine in [address] [phone] Leighton Schmitz M.D. [address] [place] [phone] Discharge Disposition: Home or Self Care documented [...] documented as of this encounter Care Teams Refractory Bricklayer Relationship Specialty Start Date End Date Guillermo Marcelo [place] [facility] [place] [address] PCP - General Family Medicine 07/30/23 [facility] 09/02/23 documented as of this encounter
--- OUTSIDE RECORDS SUMMARY | 2024-04-11 10:02 | XMS_ITS | Encounter Summary ---
Author Organization [facility] Address [address] [place] [address] Care Team Providers Care Constitutional Law Professor Name Role Phone Guillermo Marcelo M.D. Primary Care Provider [phone] Encounter Details Date Type Department Care Team (Late st Contact Info) Description 02/20/2016 Historical Ophthalmology [facility] Urban Garza M.D. [address] [address] Social History Tobacco Use Types Packs/Day Years Used Date Smoking Tobacco: Never Assessed Sex and Gender Information Value Date Recorded Sex Assigned at Male 10/15/2017 7:21 PM CDT Legal Sex Male 2:00 AM MANAGER SOURCING Gender Identity Male 10/15/2017 7:21 PM CDT [...] Ankylosing spondylitis CDM Reports - EYEGEN Id: [id number] Status: Fnl documented in this encounter Plan of Treatment Upcoming Encounters Date Type Department Care Team (Latest Contact Info) Description 05/04/2024 10:00 AM MANAGER SOURCING Comprehensive Visit Department of Sleep Medicine in [address] [phone] Leighton Schmitz M.D. [address] [place] [phone] Discharge Disposition: Home or Self Care documented [...] documented as of this encounter Care Teams Constitutional Law Professor Relationship Specialty Start Date End Date Guillermo Marcelo M.D. [address] [place] [address] PCP - General Family Medicine 07/30/23 [facility] 09/02/23 documented as of this encounter
--- OUTSIDE RECORDS SUMMARY | 2024-04-11 10:02 | XMS_ITS | Encounter Summary ---
Author Organization [facility] Address [address] [place] [address] Care Team Providers Care Center Sales And Service Associate Name Role Phone Guillermo Marcelo MD Primary Care Provider [phone] Reason for Referral * Consultation (Routine) - Closed Specialty Diagnoses / Procedures Referred By Contdoron t Referred To Contact Nephrology Diagnoses Chronic kidney disease, not otherwise specified Ziyad Barakat MD PhD [facility] [place] [address] Phone: tel: fax: Rai Feldman MD [address] [place] [address] Phone: tel: fax: Referral ID Status Reason Start Date Expiration Date V isits Requested Visits Authorized [id number] Closed Specialty Services Required 01/25/2024 01/24/2025 1 1 Encounter Details Date Type Department Care Team (Latest Contact Info) Description 01/25/2024 Transcribe Orders [facility] [address] [place] [address] Ann Potter Chronic kidney disease, [...] Contact Info) Description 06/22/2024 10:40 AM SENIOR MANAGER MERGERS & ACQUISITIONS Office Visit [facility] [address] [place] [address] Rai Feldman MD [address] [place] [address] Scheduled Referrals Name Type Priority Associated Diagnoses Order Schedule Ambulatory referral to Nephrology Outpatient Referral Routine Chronic kidney disease, not otherwise specified Expected: 01/25/2024, Expires: 02/23/2025 documented as of this encounter Visit Diagnoses Diagnosis Chronic kidney disease, not otherwise specified- Primary documented in this encounter Care Teams Center Sales And Service Associate Relationship Specialty Start Date End Date Guillermo Marcelo MD [address] [facility] [place] [address] PCP - General Family Medicine 01/29/24 documented as of this encounter
--- OUTSIDE RECORDS SUMMARY | 2024-04-11 10:02 | XMS_ITS | Encounter Summary ---
Author Organization [facility] Address [address] [place] [address] Care Team Providers Care Before School Name Role Phone Guillermo Marcelo M.D. Primary Care Provider [phone] Encounter Details Date Type Department Care Team (Late st Contact Info) Description 04/29/2016 Historical Ophthalmology [facility] Urban Garza M.D. [address] [address] Social History Tobacco Use Types Packs/Day Years Used Date Smoking Tobacco: Never Assessed Sex and Gender Information Value Date Recorded Sex Assigned at Male 10/15/2017 7:21 PM CDT Legal Sex Male 2:00 AM PICK AND SHOVEL WORKER Gender Identity Male 10/15/2017 7:21 PM [...] Ankylosing spondylitis CDM Reports - EYEGEN Id: [id number] Status: Fnl documented in this encounter Plan of Treatment Upcoming Encounters Date Type Department Care Team (Latest Contact Info) Description 05/04/2024 10:00 AM PICK AND SHOVEL WORKER Comprehensive Visit Department of Sleep Medicine in [address] [phone] Leighton Schmitz M.D. [address] [place] [phone] Discharge Disposition: Home or Self Care documented [...] Total Score: 2 03/27/20 16 8:21 AM PICK AND SHOVEL WORKER documented as of this encounter Care Teams Before School Relationship Specialty Start Date End Date Guillermo Marcelo M.D. [address] [place] [address] PCP - General Family Medicine 07/30/23 [facility] 09/02/23 documented as of this encounter
--- OUTSIDE RECORDS SUMMARY | 2024-04-11 10:02 | XMS_ITS | Encounter Summary ---
Author Organization [facility] Address [address] [place] [address] Care Team Providers Care Gluing Machine Operator Name Role Phone Guillermo Marcelo M.D. Primary Care Provider [phone] Encounter Details Date Type Department Care Team (Late st Contact Info) Description 09/16/2013 Historical Ophthalmology [facility]ST [facility] Jeff Winter O.D. [address] [place] [address] Social History Tobacco Use Types Packs/Day Years Used Date Smoking Tobacco: Never Assessed Sex and Gender Information Value Date Recorded Sex Assigned at Male 10/15/2017 7:21 PM CDT Legal Sex Male 2:00 AM BLADDER CHANGER Gender Identity Male 10/15/2017 7:21 PM CDT [...] : [id number] #1 Refractive error (presbyopia). Plan: [id number] readers satisfactory. DIAGNOSIS #1 Refractive error (presbyopia). CDM Reports - EYEGEN Id: [id number] Status: Fnl documented in this encounter Plan of Treatment Upcoming Encounters Date Type Department Care Team (Latest Contact Info) Description 05/04/2024 10:00 AM BLADDER CHANGER Comprehensive Visit Department of Sleep Medicine in [place], [place] [address] [place] [phone] Leighton Schmitz M.D. [address] [place] [phone] Discharge Disposition: Home or Self Care documented [...] documented as of this encounter Care Teams Gluing Machine Operator Relationship Specialty Start Date End Date Guillermo Marcelo M.D. [address] [place] [address] PCP - General Family Medicine 07/30/23 [facility] 09/02/23 documented as of this encounter
--- OUTSIDE RECORDS SUMMARY | 2024-04-11 10:02 | XMS_ITS | Encounter Summary ---
Author Organization [facility] Address [address] [place] [address] Care Team Providers Care Construction Teacher Name Role Phone Unavailable Primary Care Provider Unavailabl e Encounter Details Date Type Department Care Team (Late st Contact Info) Description 01/22/2024 Office Communication [facility] [place] [address] [place] [phone] No, Pcp Social History Tobacco Use Types [...] st Contact Info) Description 06/22/2024 10:40 AM INDUSTRIAL ILLUMINATING ENGINEER Office Visit [facility] [place] [address] [place] [phone] Rai Feldman MD [address] [place], [place] [address] documented as of this encounter Visit Diagnoses Not on filedocumented in this encounter
--- OUTSIDE RECORDS SUMMARY | 2024-04-11 10:02 | XMS_ITS | Clinical Summary ---
Author Organization [facility] Address [place], [place] [address] Care Team Providers Care Solar Panel Installer Name Role Phone Zeinab [facility] Primary Care Provider Allergies No [...] Quit: 08/2023 Social Connections Answer Date Recorded Do you often feel lonely or isolated from those around you? 0 10/16/2023 Financial Resource Strain Answer Date R ecorded Difficulty of Paying Living Expenses 3 10/16/2023 Difficulty of Paying Living Expenses Not on file 10/16/2023 Food Insecurity Answer Date Recorded Do you worry your food will run out before you are able to buy more? 1 10/16/2023 Transportation Needs Answer Date Record ed Does lack of transportation keep you from medica l appointments? 1 10/16/2023 Does lack of transportation keep you from work, meetings or getting things that you need? 1 10/16/2023 Housing Stability Answer Date Recorded [...] 75 10/18/2023 9:00 AM CDT Temperature 36.8 C (98.2 F) 10/18/2023 9:00 AM CDT Respiratory Rate 18 10/18/2023 9:00 AM CDT [...] Narrative 10/13/2023 12:39 PM CDT For Patients: As a result of the Cures Act, medical imaging exams and procedure reports are released immediately into your electronic medical record. You may view this report before your referring provider. If you have questions, please contact your health [...] sidewall lymph nodes. The aorta is nonaneurysmal. There is no significant atherosclerotic disease appreciated. Evaluation [...] Code Status Discussion: Reviewed Preferences Care Teams Solar Panel Installer Relationship Specialty Start Date End Date Zeinab [facility] [place] [address] [place] [address] PCP - General 10/07/23
--- OUTSIDE RECORDS SUMMARY | 2024-04-11 10:03 | XMS_ITS | Continuity of Care Document ---
Author Organization [facility] Address [address] [place] [address] Assessment Encounter Date Assessment Date Assessment LastModified by Organization Details LastModified Time 01/13/2024 01/13/2024 Here for blood draw jeyson Not available 01/13/2024 11:55:25 Plan of Treatment Reminders Order Date Submit Date Provider Last Modified By Organization Details Last Modified Time Details Appointments None recorded . Lab CBC 024 01/13/20 24 [facility], [address], [place], [address], 4 18:23:00 BMP, serum or plasma 024 01/13/20 24 [facility], [address], [address], [place], [address], 4 18:22:45 Referral None recorded . Procedures None recorded . Surgeries None recorded . Imaging None recorded . Medication Orders None recorded . Patient TargetsNo targets recorded. Patient Instructions Encounter Date Encounter Id Patient Instructions Last Modified By Organization Details Last Modified Time 01/13/2024 [id number] Pt to follow up with Dr. Bozena benítez Not available 01/13/2024 11:55:36 Reason for Referral None Reported. Results Created Date Observation Date Name Description Value Unit Range Abnormal Flag Note LastModifiedBy Organization Detail LastModifiedTime 01/13/20 24 01/13/2024 CT, chest + abdom en + pelvi s, w/o contr ast EXAM: CT, CHEST + ABDOME N + PELVIS , W/O CONTRA ST [facility]AT[facility]: [facility] DATE: INDICA TION: Malign ant neopla sm [...] the operat zheng site abutti ng the senior mechanical technician omedia l right liver that is 3.4 [...] Belle MD on 2023 at 16:49 [email or web address] [facility] [address], [place], [address], 01/24/2024 18:00:58 03/09/20 24 03/09/2024 US, thyro id No observ ation record ed. [email or web address] [facility] [address], [place], [address], 04/01/2024 13:43:14 Result Notes None recorded. Problems Name Problem SNOMED Code Status Onset Date Resolution Date Notes Provider Name and Address Organization Details Recorded Time Renal mass 499763795 Active 2023 Ziyad trejo MD, PHD [address] [place], [place] [address] [place] [address], [phone], [facility] 4 09:15:54 Clear cell carcinoma of right kidney 94956369778810 04 Active 2023 Margarita Tomlin PA-C [address] [place] [address],[address] [place] [address], [phone], [facility] 4 15:03:53 Thyroid nodule 754052351 Active 2023 Ziyad trejo MD, PHD [address] [place] [address],[address] [place] [address], [phone], [facility] 4 14:16:06 Chronic kidney disease 735436381 Active 2023 Ziyad trejo MD, PHD [address] [place] [address],[address], [place], [phone], [facility] 14:23:00 Problem Notes None recorded. Procedures Surgical History Date Name Laterality Status Provider Name and Address Organization Details Recorded Time 4 ARCHITECT/blood draw completed Jonelle Harman [facility] 01/13/2024 11:53:26 4 total nephrectomy completed Callie Schwarz [facility] 11/06/2023 11:22:17 4 hernia repair completed Callie Schwarz [facility] 11/06/2023 11:22:43 1 colonoscopy completed Daly Benton [facility] 10/01/2023 08:26:27 Imaging Results None recorded. Procedure [...] Smoker Quit August 31 2023 [facility]23 11:34:50 What Is Your [...] Cancer Y Lung Disease N Depression N Immunizations Vaccine Type Date Status Provider Name and Address Organization Details Recorded Time zoster recombinant 12/01/2018 completed Emily Gra f null, [facility] 03/28/2024 17:49:53 zoster recombinant 02/14/2019 completed Emily Gra f null, [facility] 03/28/2024 17:49:53 Influenza, high-dose, quadrivalent, PF 02/06/2020 completed Emily Lisa null, [facility] 03/28/2024 17:49:53 Influenza, high-dose, quadrivalent, PF 02/26/2021 completed Emily Wallis null, [facility] 03/28/2024 17:49:53 Influenza, high-dose, quadrivalent, PF 03/24/2022 completed Emily Lisa null, [facility] 03/28/2024 17:49:53 COVID-19, mRNA, LNP-S, PF, 100 mcg/0.5mL dose or 50 mcg/0.25mL dose 04/19/2021 completed Emily Wallis null, [facility] 03/28/2024 17:49:53 COVID-19, mRNA, LNP-S, PF, 30 mcg/0.3 mL dose 07/24/2020 [facility] 17:49:53 COVID-19, mRNA, LNP-S, PF, 30 mcg/0.3 mL dose 08/14/2020 [facility]24 17:49:53 Pneumococcal conjugate PCV20, polysaccharide NIR936 conjugate, adjuvant, PF 03/24/2022 completed Emily Wallis null, [facility] 03/28/2024 17:49:53 pneumococcal polysaccharide PPV23 07/04/2011 completed Emily Lisa null, [facility] 03/28/2024 17:49:53 pneumococcal polysaccharide PPV23 02/06/2020 completed Emily Lisa null, [facility] 03/28/2024 17:49:53 influenza, unspecified formulation 04/26/2012 completed Emily Lisa null, [facility] 03/28/2024 17:49:53 Tdap 07/21/2011 completed Emily Lisa null, [facility] 03/28/2024 17:49:53 Tdap 12/15/2022 completed Emily Lisa null, [facility] 03/28/2024 17:49:53 zoster live 08/22/2013 completed Emily Lisa null, [facility] 03/28/2024 17:49:53 Influenza, high-dose, trivalent, PF 02/16/2016 completed Emily Wallis null, [facility] 03/28/2024 17:49:53 Influenza, high-dose, trivalent, PF 02/16/2019 completed Emily Wallis null, [facility] 03/28/2024 17:49:53 Influenza, high-dose, trivalent, PF 02/23/2017 completed Emily Lisa null, [facility] 03/28/2024 17:49:53 Influenza, high-dose, trivalent, PF 03/01/2013 completed Emily Wallis null, [facility] 03/28/2024 17:49:53 Influenza, split virus, trivalent, preservative 05/25/2006 completed Emily Lisa null, [facility] 03/28/2024 17:49:53 Influenza, split virus, trivalent, PF 07/04/2011 completed Emily Lisa null, [facility] 03/28/2024 17:49:53 Influenza, split virus, trivalent, PF 05/17/2009 completed Emily Wallis null, [facility] 03/28/2024 17:49:53 Td (adult), 2 Lf tetanus toxoid, preservative free, adsorbed 10/24/2004 completed Emily Lisa null, [facility] 03/28/2024 17:49:53 Td (adult), 2 Lf tetanus toxoid, preservative free, adsorbed 12/09/1995 completed Emily Lisa null, [facility] 03/28/2024 17:49:53 Td (adult), 2 Lf tetanus toxoid, preservative free, adsorbed 12/18/1988 completed AILYN Pimentel [facility] 03/28/2024 17:49:53 Td (adult), 2 Lf tetanus toxoid, preservative free, adsorbed 01/06/2003 completed AILYN Pimentel [facility] 03/28/2024 17:49:53 Past Encounters Encounter ID Performer Location Encounter Start Date Encounter Closed Date Diagnosis/Indication Diagnosis SNOMED-CT Code Diagnosis ICD10 Code [id number] Jonelle Chakraborty er [facility] [address] [place] [address] 01/13/2024 11:43:00 01/15/2024 04:02:52 Clear cell carcinoma of right kidney [id number] C64.1 Health Concerns Section Related Observation LastModified by Organization Detai ls LastModified Time None Recorded Concern Status LastModified by Organization Details LastModified Time None Recorded Payers Encounter Date Sequence Insurance Name Policy Number Policy Chavez Covered Member ID Chavez Member ID Guarantor Name 01/13/2024 1 [place] [employer] Fredo Mcdonald [id number] Fredo Mcdonald 01/13/2024 2 [facility] [id number] Fredo Mcdonald [id number] Fredo Mcdonald
--- NOTE | 2024-04-11 10:15 | CRLHL7_ITS ---
For Patients: As a result of the Century Cures Act, medical imaging exams and procedure reports are released immediately into your electronic medical record. You may view this report before your referring provider. If you have questions, please contact your health care provider. INDICATION : Right thyroid nodule. TECHNIQUE : Ultrasound-guided fine needle aspiration of thyroid nodule. Comparison : 03/09/2024 FINDINGS : PROCEDURE: After the informed consent and time-out, multiple fine needle aspirations were obtained from the thyroid nodule. Fine needle performed. 25 gauge needles were used. Lidocaine was used for local anesthesia. The preliminary cytology was adequate for interpretation. Real-time imaging was used for guidance and needle placement. Post imaging ultrasound demonstrates no immediate complication. IMPRESSION : Successful fine needle aspiration of right thyroid nodule. Dictated by Leighton Champion MD @ 04/11/2024 1:05:08 PM (Electronically Signed)
== END 2024-04-11 09:59 | disposition home or self-care (01) ==
LOC: US 09:59
PROVIDERS: PCP Family Medicine; Visit Provider Internal Medicine Hematology & Oncology
DX: E04.1 Nontoxic single thyroid nodule (principal)
CPT/HCPCS: 10005; 88173